=== PATIENT | female | born 1960 | race Two or more races ===

== ENCOUNTER 2021-06-19 15:12 | Outpatient (REF) | payer OTHER, SELFPAY | END 2021-06-19 15:13 | disposition home or self-care (01) | LOC: HO.LAB 15:12 | PROVIDERS: Visit Provider Physician Assistant Medical | DX: R05.9 Cough, unspecified (principal); Z20.822 Contact with and (suspected) exposure to COVID-19 | CPT/HCPCS: U0003; U0005 ==

== ENCOUNTER → 2021-12-19 14:59 | Outpatient (BNVA) | payer OTHER, SELFPAY | PROVIDERS: PCP Nurse Practitioner Family; Visit Provider Surgery Vascular Surgery | DX: Z13.89 Encounter for screening for other disorder (principal) ==

== ENCOUNTER 2022-02-27 12:31 | Outpatient (REF) | payer OTHER, SELFPAY ==
--- NOTE | ~2022-02-27 | XR_ITS ---
EXAMINATION: XR LUMBOSACRAL SPINE CLINICAL INFORMATION: Low back pain. COMPARISON: None TECHNIQUE: Three views of the lumbosacral spine. FINDINGS: There is maintained lumbar lordosis. There is there is mild dextroscoliosis lumbar spine. There is loss of disc height virtually at every disc level with bridging osteophyte on the left at the L4-L5 , L2-L3 and on the right L2-L3 disc levels. No acute fracture or aggressive lytic process seen. Moderate bilateral L5-S1 and left L4-L5 facet joint arthropathy seen. There is mild constipation. XR/XR lumbar spine 2-3V IMPRESSION: Levoscoliosis dorsolumbar junction with degenerative disc changes throughout lumbar spine with spondylosis. No aggressive fracture or lytic process seen. There is bilateral facet joint arthropathy L5-S1 and left L4-L5 disc levels
== END 2022-02-27 12:32 | disposition home or self-care (01) ==
LOC: HO.HMGCX 12:31
PROVIDERS: PCP Nurse Practitioner Family; Visit Provider Nurse Practitioner Family
DX: M54.50 Low back pain, unspecified (principal)
CPT/HCPCS: 72100

== ENCOUNTER 2022-08-07 10:43 | Outpatient (REF) | payer OTHER, SELFPAY ==
[2022-08-07 13:49] LABS: MANUAL DIFF FLAG NO
[2022-08-07 13:59] LABS: Basophils Percent Auto 0.5 % (0-2); Eosinophils Absolute Auto 0.2 X10*3/uL (0.0-0.4); Eosinophils Percent Auto 2.3 % (0-4); Hematocrit 44.2 % (37.0-47.0); Hemoglobin 13.7 g/dl (12.0-16.0); Imm Gran Abs Auto 0.02 X10*3/uL (0.00-0.03); Imm Gran Pct Auto 0.2 % (0.0-0.4); Lymphocytes Absolute Auto 2.6 X10*3/uL (1.2-4.9); Mean Corpuscular Volume 70.9 fL (80.0-98.0); Mean Platelet Volume 11.2 fL (9.4-12.3); Monocytes Absolute Auto 0.8 X10*3/uL (0.1-1.2); Monocytes Percent Auto 9.8 % (2-11); Neutrophils Absolute Auto 4.5 x10*3/uL (2.0-8.3); Neutrophils Percent Auto 55.2 % (45-73); Platelet Count 241 X10*3/uL (160-400); Red Blood Count 6.23 X10*6/uL (4.20-5.50); Red Cell Distribution Width 14.5 % (11.0-16.0); White Blood Count 8.2 X10*3/uL (4.8-10.8)
[2022-08-07 14:00] LABS: Appearance Urine Clear; Color Urine Yellow; Glucose Urine UA >=1000 mg/dL (Negative); Leukocyte Esterase Urine Negative (Negative); Nitrite Urine Negative (Negative); PH 5.5 (5.0-9.0); Specific Gravity - Urine >= 1.030 (1.005-1.025); UMIC TRIGGER UACC YES; Urine Blood Trace (Negative); Urine Ketones Negative (Negative); Urine Protein 100 (2+) mg/dL (Neg-Trace)
[2022-08-07 14:07] LABS: Estimated Average Glucose 289 mg/dL; Hemoglobin A1c % 11.7 %
[2022-08-07 14:17] LABS: Bacteria Urine Trace (None Seen); Hyaline Casts Urine 0-2 /LPF (0-2); RBC Urine 0-2 /HPF (0-2); UACC Culture Trigger YES
[2022-08-07 14:23] LABS: Creatinine Urine 62.06 mg/dL
[2022-08-07 14:30] LABS: Alanine Aminotransferase 16 U/L (0-31); Albumin Level 4.2 g/dL (3.5-5.0); Alkaline Phosphatase 94 U/L (39-117); Anion Gap 11 (12-20); Aspartate Amino Transferase 16 U/L (5-31); Bilirubin Total 0.6 mg/dL (0.0-1.0); Blood Urea Nitrogen 17 mg/dL (9-16); Calcium 9.7 mg/dL (8.4-10.2); Carbon Dioxide 27 mmol/L (22-29); Chloride 102 mmol/L (96-108); Cholesterol 257 mg/dL; Estimated Glomerular Filt Rate 57; Glucose Fasting 303 mg/dL (60-99); HDL Cholesterol 40 mg/dL; Potassium 4.9 mmol/L (3.3-5.1); Sodium 135 mmol/L (135-145); TSH reflex Free T4 0.63 uIU/mL (0.32-4.0); Total Protein 6.9 g/dL (6.5-8.0); Triglycerides 419 mg/dL
[2022-08-07 14:35] LABS: Microalbum/Creatinine Ratio Ur 1324.5 ug/mg cr
== END 2022-08-07 10:44 | disposition home or self-care (01) ==
LOC: HO.HMGCLDS 10:43
PROVIDERS: PCP Nurse Practitioner Family; Visit Provider Nurse Practitioner Family
DX: Z00.00 Encounter for general adult medical examination without abnormal findings (principal); E11.9 Type 2 diabetes mellitus without complications
CPT/HCPCS: 36415; 80053; 80061; 81001; 81003; 82043; 83036; 84443; 85025; 87086

== ENCOUNTER 2022-08-21 09:51 | Outpatient (REF) | payer OTHER, SELFPAY ==
--- NOTE | ~2022-08-21 | MM_ITS ---
EXAMINATION: MM SCREENING DIGITAL BREAST TOMOSYNTHESIS, BILATERAL CLINICAL INFORMATION: Screening. Asymptomatic. The lifetime risk of breast cancer based on the Tyrer-Cuzick Model is 5%. COMPARISON: Outside mammography: 06/29/2019, 05/10/2014 ([facility]) TECHNIQUE: Digital breast tomosynthesis is performed in both the craniocaudal and mediolateral oblique views along with computer-aided detection (CAD). Synthesized 2D images are generated from the tomosynthesis. Additional right MLO view is provided. FINDINGS: There are scattered areas of fibroglandular density (ACR BI-RADS breast composition Category b). There are no significant masses, abnormal calcifications, or other abnormalities. Parenchymal pattern is similar to prior outside studies. No developing density or interval architectural abnormality. The axilla and skin contours are unremarkable. No significant changes. MM/MM tomosynthesis screening BI IMPRESSION: No mammographic evidence of malignancy. ASSESSMENT: BI-RADS 1: Negative RECOMMENDATION: Routine annual mammography screening. This patient's information was entered into a reminder system with a target due date for their next mammogram.
== END 2022-08-21 09:52 | disposition home or self-care (01) ==
LOC: HO.MAMMO 09:51
PROVIDERS: PCP Nurse Practitioner Family; Visit Provider Nurse Practitioner Family
DX: Z12.31 Encounter for screening mammogram for malignant neoplasm of breast (principal)
CPT/HCPCS: 77063; 77067

== ENCOUNTER → 2023-01-07 13:49 | Outpatient (BNVA) | payer OTHER, SELFPAY | PROVIDERS: PCP Nurse Practitioner Family; Visit Provider Anesthesiology | DX: Z13.89 Encounter for screening for other disorder (principal) ==

== ENCOUNTER 2023-06-26 09:53 | Outpatient (REF) | payer OTHER, SELFPAY ==
--- NOTE | ~2023-06-26 | XR_ITS ---
EXAMINATION: XR KNEE, LEFT CLINICAL INFORMATION: Type 2 diabetes mellitus, left knee pain COMPARISON: None available. TECHNIQUE: Four views of the left knee. FINDINGS: BONES: Bony structures are intact. Osteophytes are seen in left medial femoral condyle and medial tibial plateau, distal left femoral articular trochlea, left patellar medial articular border. There is no focal bone destruction or periosteal reaction seen. JOINTS: Alignment of joints is normal. There is complete loss of medial compartment left tibiofemoral joint space. SOFT TISSUE: Soft tissue is normal. No radiopaque foreign body or abnormal air collection is seen. Metallic vascular stent is seen in distal left femoral region. XR/XR knee LT 3V IMPRESSION: 1. Advanced medial compartment left tibiofemoral joint and moderate left patellofemoral joint osteoarthritis are present. 2. No fracture or dislocation or signs of osteomyelitis are found. Some fractures could be difficult to visualize on plain x-rays, especially in the osteopenic and relatively old patients. If there are significant clinical suspicion or symptoms of fracture, further evaluation with CT or MRI scan should be considered.
--- NOTE | ~2023-06-26 | XR_ITS ---
EXAMINATION: XR KNEE, RIGHT CLINICAL INFORMATION: Type 2 diabetes mellitus, complains of right knee pain COMPARISON: None available. TECHNIQUE: 3 view of the right knee. FINDINGS: BONES: Bony structures are intact. There is no focal bone destruction or periosteal reaction seen. JOINTS: Alignment of joints is normal. There is complete loss of medial compartment right tibiofemoral joint space. SOFT TISSUE: Soft tissue is normal. No radiopaque foreign body or abnormal air collection is seen. XR/XR knee RT 3V IMPRESSION: 1. Advanced medial compartment right tibiofemoral joint osteoarthritis is present. 2. No fracture or dislocation or signs of osteomyelitis are found. Some fractures could be difficult to visualize on plain x-rays, especially in the osteopenic and relatively old patients. If there are significant clinical suspicion or symptoms of fracture, further evaluation with CT or MRI scan should be considered.
== END 2023-06-26 09:54 | disposition home or self-care (01) ==
LOC: HO.XRAY 09:53
PROVIDERS: PCP Nurse Practitioner Family; Visit Provider Anesthesiology
DX: E11.618 Type 2 diabetes mellitus with other diabetic arthropathy (principal)
CPT/HCPCS: 73562

== ENCOUNTER 2023-07-24 10:46 | Outpatient (REF) | payer OTHER, SELFPAY ==
[2023-07-24 13:44] LABS: MANUAL DIFF FLAG NO
[2023-07-24 13:51] LABS: Basophils Absolute Auto 0.1 X10*3/uL (0.0-0.2); Basophils Percent Auto 0.6 % (0-2); Eosinophils Absolute Auto 0.2 X10*3/uL (0.0-0.4); Eosinophils Percent Auto 2.2 % (0-4); Hematocrit 44.1 % (37.0-47.0); Hemoglobin 13.5 g/dl (12.0-16.0); Imm Gran Abs Auto 0.02 X10*3/uL (0.00-0.03); Imm Gran Pct Auto 0.2 % (0.0-0.4); Lymphocytes Absolute Auto 2.9 X10*3/uL (1.2-4.9); Mean Corpuscular HGB Conc 30.6 g/dl (31.0-35.0); Mean Corpuscular Hemoglobin 22.3 pg (27.0-33.0); Mean Corpuscular Volume 72.8 fL (80.0-98.0); Monocytes Absolute Auto 0.8 X10*3/uL (0.1-1.2); Monocytes Percent Auto 9.9 % (2-11); Neutrophils Absolute Auto 4.2 x10*3/uL (2.0-8.3); Neutrophils Percent Auto 51.1 % (45-73); Platelet Count 286 X10*3/uL (160-400); Red Blood Count 6.06 X10*6/uL (4.20-5.50); Red Cell Distribution Width 14.1 % (11.0-16.0); White Blood Count 8.2 X10*3/uL (4.8-10.8)
[2023-07-24 14:14] LABS: Estimated Average Glucose 292 mg/dL; Hemoglobin A1c % 11.8 % (<6.0)
[2023-07-24 14:23] LABS: Alanine Aminotransferase 16 U/L (0-31); Albumin Level 3.6 g/dL (3.5-5.0); Alkaline Phosphatase 79 U/L (39-117); Anion Gap 11 (12-20); Aspartate Amino Transferase 15 U/L (5-31); Bilirubin Total 0.4 mg/dL (0.0-1.0); Blood Urea Nitrogen 17 mg/dL (9-16); Calcium 9.2 mg/dL (8.4-10.2); Carbon Dioxide 27 mmol/L (22-29); Chloride 107 mmol/L (96-108); Cholesterol 258 mg/dL (<200); Estimated Glomerular Filt Rate > 60; Glucose Fasting 114 mg/dL (60-99); HDL Cholesterol 46 mg/dL (>40); Potassium 4.7 mmol/L (3.3-5.1); Sodium 140 mmol/L (135-145); TSH reflex Free T4 0.84 uIU/mL (0.32-4.0); Total Protein 6.6 g/dL (6.5-8.0); Triglycerides 429 mg/dL (<150); Vitamin D 25-OH Total 21.4 ng/mL (>30)
== END 2023-07-24 10:47 | disposition home or self-care (01) ==
LOC: HO.HMGCLDS 10:46
PROVIDERS: PCP Nurse Practitioner Family; Visit Provider Nurse Practitioner Family
DX: E11.9 Type 2 diabetes mellitus without complications (principal); E55.9 Vitamin D deficiency, unspecified
CPT/HCPCS: 36415; 80053; 80061; 82306; 83036; 84443; 85025

== ENCOUNTER 2023-08-07 11:39 | Outpatient (AMB) | payer OTHER, SELFPAY ==
--- NOTE | 2023-08-07 11:46 | MHC.OFFVIS ---
Intake Vital Signs 08/07/23 11:53 Height 5 ft 5 in Weight 190 lb BMI 31.6 BP 193/79 H Blood Pressure Location Lt brachial Position Sitting Intake Visit Reasons: re discuss colonoscopy screening Intake Note: Patient follow up for discuss colonoscopy screening. Patient denies any GI issues. Check Examiner Required: No Accompanied by: Daughter Allergies erythromycin base [Erythromycin Base] Allergy (Mild, Verified 08/07/23 11:45) DIFFICULTY BREATHING albuterol Allergy (Unknown, Verified 08/07/23 11:45) Facial flushing meperidine [Demerol] Allergy (Unknown, Verified 08/07/23 11:45) vomiting metoclopramide [Reglan] Allergy (Unknown, Verified 08/07/23 11:45) unsure Erythromycin Allergy (Unknown, Uncoded 05/28/22 18:03) ? if allergy - family allergic to med, Pt stays away from it HPI re discuss colonoscopy screening HPI Details LAST VISIT AUGUST OF 2022 Screening for colon cancer Patient denies any GI symptoms except for occasional acid reflux. Patient reports that Tums helps which does symptoms. Occasional constipation, patient uses [id number] laxative if needed. Patient reports that she was told by her PCP that she has Congestive heart failure, however has never seen operators teacher in the past. Symptoms of shortness of breath with minimal exertion. Patient does have risk factors for CAD that include?smoking, diabetes, hypertension, hyperlipidemia. Patient denies any chest pain, PND. Will send patient to see cardiology for risk stratification before going on for the procedure. Denies any issues with anesthesia in the past.? Denies any history of sleep apnea.? No history infectious diseases in the past or present.? Not on any anticoagulation therapy.? No family or personal history of colon cancer or polyps.? Patient denies melena, hematochezia, unintentional weight loss or ribbon like stools.? Discussed at length the pre-procedure,? prep, diet & medications as well as what to expect prior, during and after the procedure.?? Stressed the importance of good bowel prep. ?Recommended the use of Vaseline or Calmoseptine OTC & baby wipes with bowel movements to promote comfort.? ?Patient verbalizes understanding and agrees to plan of care.? She was given the opportunity to ask questions and all questions answered.? We will see her after the procedure.? Plan Orders Referrals Cardiology Referral Z01.810 Medications New bisacodyl (Dulcolax (bisacodyl)) take 2 tabs at noon the day before your colonoscopy 10 mg (2 x 5 mg) PO ONCE 2 tabs 0RF 1 day Z12.11 polyethylene glycol 3350 (Miralax) As directed by gastroenterology department at [facility] 238 grams PO ONCE 238 grams 0RF Z12.11 TODAY'S VISIT: Patient is here today to discuss going for colonoscopy. Patient is accompanied by her daughter. Patient never had appointment with Cardiology to be cleared for the procedure. Patient states that somebody called and canceled told her that she does not need to see a operators teacher. Patient reports to have shortness of breath with minimal exertions. She is a smoker. History of Congestive heart failure in the past. Reports bilateral lower extremity edema. No recent echocardiogram. Patient had echo and nuclear perfusion scan in 2007. Echo showed 60-65% of EF. Nuclear perfusion scan showed decreased left ventricle perfusion then. Given her history and symptoms patient should have cardiac risk stratification. [facility] Medical History PAD (peripheral artery disease) Social History Housing: House Patient Tobacco Use Status: Former Tobacco user Quit Date: 11/2021 e-Cigarette/Vaping Use: Never Used Second Hand Smoke Exposure: No service: No Current occupational status: employed Current occupation: [employer] Current occupational exposures/hazards: No Cognitive needs: No Hearing needs: No Vision needs: No Review of Systems Const Denies weight gain and Denies weight loss ENT Reports no additional complaints, Denies dysphagia and Denies odynophagia Card Reports no additional complaints, Reports leg edema and Reports dyspnea on exertion Resp Reports no additional complaints and Reports dyspnea on exertion GI Denies abdominal pain, Denies belching, Denies melena, Denies bloating, Denies change in bowel habits, Denies dysphagia, Denies excessive flatus, Denies dyspepsia, Denies heartburn, Denies diarrhea, Denies loose stools, Denies nausea, Denies odynophagia and Denies vomiting Musc Reports no additional complaints Neuro Reports no additional complaints Psych Reports no additional complaints Endo Reports no additional complaints Physical Exam Vital Signs: Last Vital Signs BP 193/79 H 08/07/23 11:53 BMI result Body Mass Index 31.6 Const Other: Ambulating with walker General: no acute distress Nutritional Appearance: well nourished and obese Orientation/consciousness: patient oriented x3 HEENT Head: Yes normal to inspection, Yes normocephalic and Yes atraumatic Face and sinus: Yes normal facial exam Mouth: Normal oral and palatal mucosa present Throat: Yes posterior oropharynx normal, Yes tonsils normal and Yes uvula midline Eyes General: appearance normal, both eyes and all related structures Neck Neck: Yes normal visual inspection, Yes full ROM and Yes trachea midline Thyroid: Thyroid normal Resp Effort & Inspection: normal respiratory effort, able to speak in complete sentences, no tracheal deviation and symmetric chest movement Auscultation: clear to auscultation bilaterally Cardio Rate: regular rate Heart sounds: S1 normal heart sound present and S2 normal heart sound present GI Inspection: Yes normal to inspection, No distended and Yes obesity Palpation (GI): Soft to palpation, not firm, nontender and No hepatosplenomegaly present Auscultation: normal bowel sounds General: Yes no CVA tenderness Back/Spine/Pelvis Back: no CVA tenderness Skin General skin exam: elasticity normal, turgor normal and dry skin Neuro General: patient oriented x3 Psych Appearance: grossly normal Mental Status: mental status grossly normal Assessment & Plan Assessment & Plan (1) Screening for colon cancer: Code(s): Z12.11 - Encounter for screening for malignant neoplasm of colon (2) Peripheral vascular disease: Code(s): I73.9 - Peripheral vascular disease, unspecified (3) SOBOE (shortness of breath on exertion): Code(s): R06.02 - Shortness of breath Plan What to expect be what to expect before during and after the procedure discussed with patient. Went over the prep with her again. Patient's daughter is present. The importance of her getting evaluated by Cardiology before that procedure was stressed. Patient does have comorbidities like diabetes, smoking, PVD, shortness of breath with exertion, bilateral lower extremity edema, suboptimal stress test in 2008. Decreased perfusion at rest and after exercise of her left ventricle in 2008. Patient will need risk stratification. Denies any issues with anesthesia in the past. No history of sleep apnea. Patient is on low dose aspirin. Adjust patient's insulin does 1 day or in 2 days before the procedure as she will be on clear liquid diet day before the procedure. Patient may take half of the recommended does both evenings and make sure that she checks her blood sugars when she is doing her prep day before the procedure. I will see her after the procedure, sooner on as needed basis. Patient is agreeable to this plan and verbalizes understanding of instructions. She was given the opportunity to ask questions and all questions answered. Thank you for allowing me to participate in her care Medications: New bisacodyl (Dulcolax (bisacodyl)) take 4 tabs at noon the day before your colonoscopy 20 mg (4 x 5 mg) PO ONCE 1 day 4 tabs 0RF Z12.11 - Encounter for screening for malignant neoplasm of colon polyethylene glycol 3350 (Miralax) As directed by gastroenterology department at [facility] 238 grams PO ONCE 238 grams 0RF Z12.11 - Encounter for screening for malignant neoplasm of colon Coding Level of Care Code Est Pt Level 3 (05916) Diagnoses Screening for colon cancer Z12.11 Peripheral vascular disease I73.9 SOBOE (shortness of breath on exertion) R06.02 Time Spent (min) 35 Comment 20 minutes spent with patient and additional 15 minutes spent reviewing her records
[2023-08-07 11:53] VITALS: BP 193/79; BMI 31.6
== END 2023-08-07 13:12 | disposition home or self-care (01) ==
PROVIDERS: PCP Nurse Practitioner Family; Visit Provider Nurse Practitioner Family
DX: Z12.11 Encounter for screening for malignant neoplasm of colon (principal); I73.9 Peripheral vascular disease, unspecified; R06.02 Shortness of breath; Z01.818 Encounter for other preprocedural examination
CPT/HCPCS: 99213

== ENCOUNTER → 2023-08-07 11:39 | Outpatient (BNVA) | payer OTHER, SELFPAY | PROVIDERS: PCP Nurse Practitioner Family; Visit Provider Nurse Practitioner Family ==

== ENCOUNTER 2023-09-30 11:59 | Outpatient (AMB) | payer OTHER, SELFPAY ==
[2023-09-30 13:14] VITALS: BP 130/64; PULSE 76; BMI 31.5
--- NOTE | 2023-09-30 13:14 | A.OFFVIS_ITS ---
Intake Vital Signs 09/30/23 13:14 Height 5 ft 5 in Weight 189 lb 9.561 oz BMI 31.5 BP 130/64 Blood Pressure Location Lt brachial Position Sitting Pulse 76 Intake Visit Reasons: pre-op GI dx chf Intake Note: pre-op GI dx chf/ pt it not feeling well but have not symptoms. Senior Medical Technologist Required: No Accompanied by: Self / Same As Patient Allergies erythromycin base [Erythromycin Base] Allergy (Mild, Verified 10/01/23 10:52) DIFFICULTY BREATHING albuterol Allergy (Unknown, Verified 10/01/23 10:52) Facial flushing meperidine [Demerol] Allergy (Unknown, Verified 10/01/23 10:52) vomiting metoclopramide [Reglan] Allergy (Unknown, Verified 10/01/23 10:52) unsure Erythromycin Allergy (Unknown, Uncoded 09/30/23 13:44) ? if allergy - family allergic to med, Pt stays away from it Medication List - Last Reconciled 09/30/23 by Trista Cuevas, DIGITAL PRINTER OPERATOR amlodipine 10 mg PO DAILY 90 days aspirin 1 tab PO DAILY bisacodyl (Dulcolax (bisacodyl)) 20 mg (4 x 5 mg) PO ONCE 1 day blood sugar diagnostic (FreeStyle Lite Strips) test blood sugar 3 times per day blood-glucose meter (FreeStyle Lite Meter kit) As directed cholecalciferol (vitamin D3) 125 mcg PO DAILY clonidine HCl 0.1 mg PO BEDTIME 30 days FreeStyle Sarah 2 [place] (flash glucose scanning reader) tid testing NS FreeStyle Sarah 2 Sensor (flash glucose sensor) tid testing NS insulin glargine (Lantus Solostar U-100 Insulin) 80 units (0.8 mL) subcut DAILY lancets (FreeStyle Lancets) test 3 times per day nystatin 1 appl topical BID omega-3 acid ethyl esters 1 cap PO BID 90 days pen needle, diabetic (BD Ultra-Fine Rimma Pen Needle) daily use diabetes polyethylene glycol 3350 (Miralax) 238 grams PO ONCE rosuvastatin 40 mg PO DAILY 90 days HPI HPI Comments History of Present Illness Details 62-year-old female presents today for a new patient visit for pre- operative clearance for a colonoscopy at the end of November. She reports that she has been told in the past that she has CHF and had a stroke but she has no recollection of it happening. She seen a radio sportscaster many years ago and she does not recall the name. She states she has not been taking her medications as she should due to episodes of depression and this week she got back on track. Other significant medical history of diabetes, hyperlipidemia, peripheral vascular disease. She is hard to get a full medical history on as she doesn't fully recall. [facility] Medical History CHF (congestive heart failure) Stroke PAD (peripheral artery disease) Family History Mother Diabetes Father Lung cancer Social History Housing: House Patient Tobacco Use Status: Former Tobacco user Quit Date: 11/2021 e-Cigarette/Vaping Use: Never Used Second Hand Smoke Exposure: No service: No Current occupational status: employed Current occupation: [employer] Current occupational exposures/hazards: No Cognitive needs: No Hearing needs: No Vision needs: No Review of Systems Const Denies chills, Denies daytime sleepiness, Denies fatigue, Denies fever(s), Denies frequent falls, Denies poor appetite, Denies snoring, Denies stops breathing during sleep, Denies weakness, Denies weight gain and Denies weight loss Eyes Denies loss of vision ENT Denies dizziness and Denies hearing loss Card Denies chest pain, Denies claudication, Denies leg edema, Denies lightheadedness, Denies palpitations, Denies dyspnea, Denies dyspnea on exertion, Denies orthopnea and Denies other (LOC) Resp Denies cough, Denies excessive phlegm production, Denies dyspnea, Denies dyspnea on exertion, Denies snoring and Denies wheezing GI Denies abdominal pain, Denies hematochezia, Denies change in bowel habits, Denies nausea and Denies vomiting Denies dysuria and Denies urinary urgency Musc Denies arthralgias, Denies muscle weakness and Denies numbness Skin/Breast Denies nail changes and Denies rash Neuro Denies Abnormal speech present, Denies dizziness, Denies frequent falls, Denies loss of vision, Denies memory loss, Denies numbness and Denies weakness Psych Denies depression and Denies memory loss Endo Denies fatigue and Denies palpitations Tre/Lymph Denies easy bruising and Denies other (Anemia) Aller/Immun Denies wheezing Physical Exam Vital Signs: Last Vital Signs Pulse 76 09/30/23 13:14 BP 130/64 09/30/23 13:14 BMI result Body Mass Index 31.5 Const General: healthy appearing and no acute distress Orientation/consciousness: patient oriented x3 HEENT Head: Yes normal to inspection Eyes General: appearance normal, both eyes and all related structures Neck Neck: Yes normal visual inspection Chest Chest palpation & inspection: normal inspection of the chest Resp Effort & Inspection: normal respiratory effort Auscultation: clear to auscultation bilaterally Cardio Jugular venous distension: no JVD Palpation: normal PMI Rate: regular rate Rhythm: regular rhythm Heart sounds: S1 normal heart sound present, S2 normal heart sound present, no c lick, no gallops, no murmurs and no rubs GI Inspection: Yes normal to inspection Palpation (GI): Soft to palpation Skin General skin exam: no rashes or lesions noted Neuro General: patient oriented x3 Speech: No Abnormal speech present Extrem General: Yes normal to inspection Psych Appearance: grossly normal Office Procedures EKG Details: KG today. Normal Sinus Rhythm with Right Bundle Branch Block. Rate 76 bpm. QRS 138 ms. QTc 483ms. [id number], Complete Assessment & Plan Assessment & Plan (1) Pre-op evaluation: Code(s): Z01.818 - Encounter for other preprocedural examination (2) Diabetes: Code(s): E11.9 - Type 2 diabetes mellitus without complications (3) Hypertension: Code(s): I10 - Essential (primary) hypertension (4) CHF (congestive heart failure): Code(s): I50.9 - Heart failure, unspecified (5) Palpitations: Code(s): R00.2 - Palpitations (6) Hyperlipidemia: Code(s): E78.5 - Hyperlipidemia, unspecified (7) Right bundle branch block: Code(s): I45.10 - Unspecified right bundle-branch block Plan Will obtain labs today. Lipid panel in two months after being back on her medications longer. Echocardiogram to obtain baseline and pharmacological stress test to assess for ischemia. Once testing is complete can decide on pre- opertative clearance. Will meet with me again after testing and then after Dr. Luna if needed. Discussed in detail about heart healthy diet, exercise as tolerated, if sustained palpitations or if chest discomfort occurs seek emergency care. Avoid salt and processed foods and weigh self daily. Compliance with medical treatments stressed. Complete smoking cessation recommended. No prior EKGs and patient is unsure if she had a RBBB in the past. Orders: Orders CA echo transthoracic complete 09/30/23 I10 - Essential (primary) hypertension, I45.10 - Unspecified right bundle-branch block, I50.9 - Heart failure, unspecified CA lexiscan stress w kirstin 09/30/23 E11.9 - Type 2 diabetes mellitus without complications, I10 - Essential (primary) hypertension, I45.10 - Unspecified right bundle-branch block, I50.9 - Heart failure, unspecified, R00.2 - Palpitations, Z01.818 - Encounter for other preprocedural examination B Type Natriuretic Peptide 09/30/23 I50.9 - Heart failure, unspecified Lipid Panel 2 Months E78.00 - Pure hypercholesterolemia, unspecified Basic Metabolic Panel 09/30/23 E78.00 - Pure hypercholesterolemia, unspecified, I10 - Essential (primary) hypertension, I50.9 - Heart failure, unspecified Coding Level of Care Code New Pt Level 4 (75892) Diagnoses Pre-op evaluation Z01.818 Diabetes E11.9 Hypertension I10 CHF (congestive heart failure) I50.9 Palpitations R00.2 Hyperlipidemia E78.5 Right bundle branch block I45.10 CPT Codes EKG - CPT: 02010-[id number], Complete ([id number])
== END 2023-09-30 14:17 | disposition home or self-care (01) ==
PROVIDERS: PCP Nurse Practitioner Family; Visit Provider Nurse Practitioner
DX: Z01.818 Encounter for other preprocedural examination (principal); E11.9 Type 2 diabetes mellitus without complications; I10 Essential (primary) hypertension; I50.9 Heart failure, unspecified; R00.2 Palpitations; E78.5 Hyperlipidemia, unspecified; I45.10 Unspecified right bundle-branch block
CPT/HCPCS: 93010; 99204

== ENCOUNTER → 2023-09-30 11:59 | Outpatient (BNVA) | payer OTHER, SELFPAY | PROVIDERS: PCP Nurse Practitioner Family; Visit Provider Nurse Practitioner | DX: Z01.818 Encounter for other preprocedural examination (principal); E11.9 Type 2 diabetes mellitus without complications; I11.0 Hypertensive heart disease with heart failure; I50.9 Heart failure, unspecified; R00.2 Palpitations; E78.5 Hyperlipidemia, unspecified; I45.10 Unspecified right bundle-branch block | CPT/HCPCS: 93005 ==

== ENCOUNTER 2023-10-01 10:45 | Outpatient (AMB) | payer OTHER, SELFPAY ==
--- NOTE | 2023-10-01 10:46 | MHC.OFFVIS ---
Intake Vital Signs 10/01/23 10:52 Height 5 ft 5 in Weight 189 lb BMI 31.4 BP 140/80 H Blood Pressure Location Lt brachial Position Sitting Respiration 16 Pulse 88 Pulse Source Pulse Oximeter Pulse Oximetry (%) 99 Oxygen Delivery Method Room Air Intake Visit Reasons: Follow Up/X-Ray Results Intake Note: Patient comes in for follow up appointment. Reports pain 05/17. Allergies erythromycin base [Erythromycin Base] Allergy (Mild, Verified 10/01/23 10:52) DIFFICULTY BREATHING albuterol Allergy (Unknown, Verified 10/01/23 10:52) Facial flushing meperidine [Demerol] Allergy (Unknown, Verified 10/01/23 10:52) vomiting metoclopramide [Reglan] Allergy (Unknown, Verified 10/01/23 10:52) unsure Erythromycin Allergy (Unknown, Uncoded 09/30/23 13:44) ? if allergy - family allergic to med, Pt stays away from it HPI HPI Comments History of Present Illness Details Caitlyn is back in my office after significant period of absence. She have seen me in January of 2023, she was sent for the x-rays of the bilateral knees which she presents with complain on severe pain in. She was sent for the x-ray of bilateral knees and only left knee demonstrated significant arthritis. The right knee is intact. Nevertheless she reports grinding sensation in severe pain in both knees. She might be willing to seek the orthopedic surgery consult about her right knee and possibility to do the MRI of the right knee. For the left knee with significant arthritis I offered her diagnostic genicular nerve block, if genicular nerve block will help her pain will discuss possibility of treating her with radiofrequency ablation versus neuromodulation on the left knee. Prior: complains on pain all over the body related to ?fibromyalgia as well as arthritis ?. She reports most severe pain in bilateral knees and bilateral feet as well as pain in lower back. She also reports that she has suffered from scoliosis in the past. She is poorly-controlled diabetic patient. She reports significant past medical history including very poorly controlled diabetes. She has congestive heart failure. She was once told that she has a stroke but she denies neurological deficits. She has heart palpitations shortness of breath and congestive heart failure the severity of congestive heart failure is unknown. She is recommended to take NSAIDs for her pain however she reports no help with her pain. She in the past received cortisone injections in her knees and she was not able to walk on that injected knee for 3 days. She refused to do contralateral knee injection. She had no physical therapy but she tried chiropractic manipulations many years ago to treat her pain and she reports very significant pain aggravation with care for her off and she does not want to go to chiropractor. She never tried 10s unit acupuncture or occupational therapy. She never tried I aerobic exercises. Past surgical history significant for 2 stents in the legs gallbladder surgery and tubal ligation many years ago. She admits smoking cigarettes 1 pack per day she denies drinking alcohol she drinks caffeinated beverages and she denies recreational drugs [facility] Medical History CHF (congestive heart failure) Stroke PAD (peripheral artery disease) Family History Mother Diabetes Father Lung cancer Social History Housing: House Patient Tobacco Use Status: Former Tobacco user Quit Date: 11/2021 e-Cigarette/Vaping Use: Never Used Second Hand Smoke Exposure: No service: No Current occupational status: employed Current occupation: [employer] Current occupational exposures/hazards: No Cognitive needs: No Hearing needs: No Vision needs: No Review of Systems Const All systems reviewed & are unremarkable except as noted in HPI and below ENT Reports Normal hearing present Neuro Reports Normal hearing present, Denies Abnormal speech present and Denies Sensory deficit (Neuro) Physical Exam Const General: no acute distress Orientation/consciousness: patient oriented x3 Eyes General: appearance normal, both eyes and all related structures Pupils: Equal, round and reactive pupils present EOM: EOMs intact bilaterally Neck Neck: Yes full ROM Chest Chest palpation & inspection: normal inspection of the chest Resp Effort & Inspection: normal respiratory effort, able to speak in complete sentences, normal respiratory pattern, no audible wheezes and no cough Cardio Jugular venous distension: no JVD GI Inspection: Yes normal to inspection Neuro General: patient oriented x3 and gait normal Cranial nerves: Yes CN's II-XII intact bilaterally, Yes Equal, round and reactive pupils present, Yes Normal hearing present and Yes Ability to bilaterally elevate shoulders present Speech: No Abnormal speech present Gait exam (Neuro): Normal gait present Motor exam (neuro): 5/5 motor strength present throughout Sensory Exam: No Sensory deficit (Neuro) Extrem Other: No crackling on palpation of bilateral knees with movements. General: No pedal edema Psych Speech and movement: Normal speech and movement present Affect: normal affect Attitude: cooperative Thought process: Normal thought process present Thought content: Normal thought content present Insight: Good insight present (Psych) Judgement: Good judgement present (Psych) Assessment & Plan Assessment & Plan (1) Peripheral vascular disease: Code(s): I73.9 - Peripheral vascular disease, unspecified (2) Diabetes: Code(s): E11.9 - Type 2 diabetes mellitus without complications (3) Diabetic neuropathy: Code(s): E11.40 - Type 2 diabetes mellitus with diabetic neuropathy, unspecified (4) Diabetic arthropathy: Code(s): E11.618 - Type 2 diabetes mellitus with other diabetic arthropathy (5) Left knee pain: Code(s): M25.562 - Pain in left knee (6) Osteoarthritis of left knee: Code(s): M17.12 - Unilateral primary osteoarthritis, left knee (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 I will schedule this patient for this procedure without sedation. If there are any positive outcomes of this procedure we will discuss radiofrequency ablation versus neuromodulation of the left knee. As of the right knee problem she probably needs to see orthopedic surgeon and maybe have MRI of the right knee because x-ray did not demonstrate any bony pathology in the knee. We will discuss all of this next time after the diagnostic genicular nerve block. 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 The medial branch block will be technically very difficult for this patient however with her understanding that it possibly will be difficult procedure I can nevertheless try to perform it. Next appointment will be scheduled after the genicular nerve block.. Coding Level of Care Code Est Pt Level 3 (09905) Diagnoses Peripheral vascular disease I73.9 Diabetes E11.9 Diabetic neuropathy E11.40 Diabetic arthropathy E11.618 Left knee pain M25.562 Osteoarthritis of left knee M17.12 Spondylosis of lumbar region without myelopathy or radiculopathy M47.810
[2023-10-01 10:52] VITALS: BP 140/80; PULSE 88; RESP 16; O2SAT 99; BMI 31.4
== END 2023-10-01 11:35 | disposition home or self-care (01) ==
PROVIDERS: PCP Nurse Practitioner Family; Visit Provider Anesthesiology
DX: I73.9 Peripheral vascular disease, unspecified (principal); E11.40 Type 2 diabetes mellitus with diabetic neuropathy, unspecified; E11.618 Type 2 diabetes mellitus with other diabetic arthropathy; M25.562 Pain in left knee; M17.12 Unilateral primary osteoarthritis, left knee; M47.816 Spondylosis without myelopathy or radiculopathy, lumbar region
CPT/HCPCS: 99213

== ENCOUNTER → 2023-10-01 10:45 | Outpatient (BNVA) | payer OTHER, SELFPAY | PROVIDERS: PCP Nurse Practitioner Family; Visit Provider Anesthesiology ==

== ENCOUNTER 2023-10-07 13:15 | Outpatient (AMB) | payer OTHER, SELFPAY ==
[2023-10-07 13:45] VITALS: BP 148/82; PULSE 68; O2SAT 97; BMI 31.5
--- NOTE | 2023-10-07 13:45 | A.OFFPC_ITS ---
Vital Signs 10/07/23 13:45 Height 5 ft 5 in Weight 189 lb 4 oz BMI 31.5 BP 148/82 H Blood Pressure Location Lt brachial Position Sitting Pulse 68 Pulse Source Pulse Oximeter Pulse Oximetry (%) 97 Oxygen Delivery Method Room Air Intake Visit Reasons: Due for f/u Intake Note: Pt is here to follow up for her DM Allergies erythromycin base [Erythromycin Base] Allergy (Mild, Verified 10/07/23 13:48) DIFFICULTY BREATHING albuterol Allergy (Unknown, Verified 10/07/23 13:48) Facial flushing meperidine [Demerol] Allergy (Unknown, Verified 10/07/23 13:48) vomiting metoclopramide [Reglan] Allergy (Unknown, Verified 10/07/23 13:48) unsure Erythromycin Allergy (Unknown, Uncoded 10/07/23 13:48) ? if allergy - family allergic to med, Pt stays away from it Medication List - Last Reconciled 10/07/23 by KAMAR Zarate- amlodipine 10 mg PO DAILY 90 days aspirin 1 tab PO DAILY bisacodyl (Dulcolax (bisacodyl)) 20 mg (4 x 5 mg) PO ONCE 1 day blood sugar diagnostic (FreeStyle Lite Strips) test blood sugar 3 times per day blood-glucose meter (FreeStyle Lite Meter kit) As directed cholecalciferol (vitamin D3) 125 mcg PO DAILY clonidine HCl 0.1 mg PO BEDTIME 30 days ezetimibe 10 mg PO DAILY FreeStyle Sarah 2 Ferguson (flash glucose scanning reader) tid testing NS FreeStyle Sarah 2 Sensor (flash glucose sensor) tid testing NS insulin glargine (Lantus Solostar U-100 Insulin) 80 units (0.8 mL) subcut DAILY lancets (FreeStyle Lancets) test 3 times per day nystatin 1 appl topical BID omega-3 acid ethyl esters 1 cap PO BID 90 days pen needle, diabetic (BD Ultra-Fine Rimma Pen Needle) daily use diabetes polyethylene glycol 3350 (Miralax) 238 grams PO ONCE rosuvastatin 40 mg PO DAILY 90 days Tobacco use date assessed: 10/07/23 Fall risk assessment: 2 + Falls in past year Last assessed Fall Risk: 10/07/23 Dental Screening Dental Screen Date: 10/07/23 Did you have a dental visit in the last 12 months?: No Did you have a dental problem in the last 6 months where you did not have access to dental care?: No Was dental information given to patient?: Patient has dentist HPI Due for f/u HPI Details Pt is an uncontrolled diabetic, on a statin. Last A1C was 11.8. Due for microalbumin. Denies polyuria, polydipsia, does report neuropathy. Pt denies any signs and symptoms of hypoglycemia and does know how to correct it. Pt reports being off her insulin and other meds for months, though she is now back on them. Will continue current meds. Eye exam is scheduled. Pt is following up with cardiology. Dyslipidemia: Pt is currently taking rosuvastatin 40mg. Will start zetia 10mg. Will also start losartan 25mg. [facility], [facility] Medical History CHF (congestive heart failure) Stroke PAD (peripheral artery disease) Family History Mother Diabetes Father Lung cancer Social History Housing: House Patient Tobacco Use Status: Current everyday Tobacco user Cigarette Packs Per Day: 1 e-Cigarette/Vaping Use: Never Used Second Hand Smoke Exposure: No service: No Current occupational status: employed Current occupation: [employer] Current occupational exposures/hazards: No Cognitive needs: No Hearing needs: No Vision needs: No Questionnaire Thrive Questionnaire Date Thrive assessed: 02/27/22 AUDIT C Alcohol Use Questionnaire (AUDIT-C) 1. How often do you have a drink containing alcohol?: Never Total Score: 0 JENNA-7 AMB Questionnaire JENNA-7 Date JENNA - 7 assessed: 02/27/22 Source: Developed by Drs. Abdoulaye Wu, Tracey Santos, Tee Baker and colleagues, with an educational mamadou from [employer]. Review of Systems Const Reports as per HPI Physical exam (Primary Care) Vital Signs: Last Vital Signs Pulse 68 10/07/23 13:45 BP 148/82 H 10/07/23 13:45 Pulse Ox 97 10/07/23 13:45 Oxygen Delivery Method Room Air 10/07/23 13:45 BMI result Body Mass Index 31.5 Tobacco/Smoking Status: Tobacco use Status Tobacco use date assessed 10/07/23 10/07/23 13:52 Patient Tobacco Use Status Current everyday Tobacco 10/07/23 13:52 e-Cigarette/Vaping Use Never Used 10/07/23 13:45 Thrive Assessment: Date of Thrive Assessment Date Thrive assessed 02/27/22 10/07/23 13:45 Const Other: uses rolling walker General: cooperative Nutritional Appearance: obese Orientation/consciousness: patient oriented x3 Resp Effort & Inspection: normal respiratory effort Auscultation: clear to auscultation bilaterally and diminished lung sounds Cardio Rate: regular rate Rhythm: regular rhythm Heart sounds: S1 normal heart sound present and S2 normal heart sound present Neuro General: patient oriented x3 Extrem Other: bilat feet: + sensation with use of monofilament Psych Appearance: grossly normal Mental Status: mental status grossly normal Speech and movement: Normal speech and movement present Affect: normal affect Attitude: cooperative Thought process: Normal thought process present Thought content: Normal thought content present Insight: Good insight present (Psych) Judgement: Good judgement present (Psych) Assessment and Plan Assessment & Plan (1) Diabetes: Code(s): E11.9 - Type 2 diabetes mellitus without complications Plan: added losartan Orders: Orders UA CC w/rflx Micro + Cult Today E11.9 - Type 2 diabetes mellitus without complications Microalbumin, Random (w Creat) Today E11.9 - Type 2 diabetes mellitus without complications Medications: New ezetimibe 10 mg PO DAILY 90 tabs 0RF losartan 25 mg PO DAILY 90 tabs 0RF Coding Level of Care Code Est Pt Level 3 (78179) Diagnoses Diabetes E11.9
== END 2023-10-07 15:25 | disposition home or self-care (01) ==
PROVIDERS: PCP Nurse Practitioner Family; Visit Provider Nurse Practitioner Family
DX: E11.9 Type 2 diabetes mellitus without complications (principal)
CPT/HCPCS: 99213

== ENCOUNTER 2023-10-07 14:22 | Outpatient (REF) | payer OTHER, SELFPAY ==
[2023-10-07 16:17] LABS: Appearance Urine Clear; Color Urine Yellow; Glucose Urine UA >=1000 mg/dL (Negative); Leukocyte Esterase Urine Negative (Negative); Nitrite Urine Negative (Negative); PH 5.5 (5.0-9.0); Specific Gravity - Urine >= 1.030 (1.005-1.025); UMIC TRIGGER UACC YES; Urine Blood Negative (Negative); Urine Ketones Negative (Negative); Urine Protein 300 (3+) mg/dL (Neg-Trace)
[2023-10-07 16:23] LABS: Bacteria Urine None Seen (None Seen); Hyaline Casts Urine 0-2 /LPF (0-2); RBC Urine 0-2 /HPF (0-2); UACC Culture Trigger YES
[2023-10-07 16:34] LABS: Anion Gap 16 (12-20); Calcium 9.3 mg/dL (8.4-10.2); Carbon Dioxide 23 mmol/L (22-29); Chloride 103 mmol/L (96-108); Estimated Glomerular Filt Rate 49; Potassium 4.6 mmol/L (3.3-5.1); Sodium 137 mmol/L (135-145)
[2023-10-07 16:35] LABS: Blood Urea Nitrogen 23 mg/dL (9-16)
[2023-10-07 16:40] LABS: Glucose Random 400 mg/dL (60-115)
[2023-10-07 16:57] LABS: B Type Natriuretic Peptide 39 pg/mL (<100)
[2023-10-07 17:08] LABS: Creatinine Urine 73.14 mg/dL
[2023-10-07 17:13] LABS: Microalbum/Creatinine Ratio Ur 2659.2 ug/mg cr (<30)
== END 2023-10-07 14:23 | disposition home or self-care (01) ==
LOC: HO.HMGCLDS 14:22
PROVIDERS: PCP Nurse Practitioner Family; Referring Provider Nurse Practitioner; Visit Provider Nurse Practitioner Family
DX: I11.0 Hypertensive heart disease with heart failure (principal); I50.9 Heart failure, unspecified; E78.00 Pure hypercholesterolemia, unspecified; E11.9 Type 2 diabetes mellitus without complications; R82.90 Unspecified abnormal findings in urine
CPT/HCPCS: 36415; 80048; 81001; 82043; 82570; 83880; 87086

== ENCOUNTER → 2023-11-06 07:47 | Outpatient (REF) | payer OTHER, SELFPAY ==
--- NOTE | ~2023-11-06 | NM_ITS ---
Myocardial perfusion study Indication: Preoperative cardiac vascular stratification 2 evaluate for myocardial ischemia Technique: The patient was brought in for a Lexiscan perfusion study on 11/06/2023. Patient performed low-level exercise and was injected 0.4 mg of Lexiscan intravenously. Within a minute of injection, 30 mCi of sestamibi was given intravenously. Images were obtained using the SPECT gamma camera interlaced with the gating device. Images were obtained in supine position. Resting perfusion study was performed on 11/09/2023. Patient was administered 30 mCi of sestamibi intravenously at rest. Images were then obtained in supine position. Images obtained with and without CT attenuation. Total DLP 172 mGy-cm. Images were processed with the software and compared side to side in short axis, horizontal long axis and vertical long axis views. Findings: The stress perfusion study showed non attenuated images show no significant reduction uptake in radiotracer in all segments of LV myocardium. Attenuation corrected images show minimally reduced uptake in the apical septum of the LV myocardium.. The gated study shows normal LV systolic function with calculated LVEF of greater than 50%. LV cavity is normal in size. The gated study shows normal systolic wall thickening and contraction of segments. Resting study shows attenuated corrected images show normal uptake of radiotracer in all segments of LV myocardium. Gating at rest reveals normal systolic wall motion with ejection fraction at 54%. The findings are consistent with likely normal myocardial perfusion. NM/NM kirstin perf SPECT rest & str Impression: 1. Myocardial perfusion imaging study shows likely normal myocardial perfusion 2. Gated LVEF is 54% 3. Transient ischemic dilatation not present EKG is nondiagnostic for ischemia
--- NOTE | 2023-11-06 07:50 | CA_ITS ---
Transthoracic Echocardiogram Patient (Last, First, Middle): Caitlyn Connors, Gender: Female Date of : 1960 Age: 63 Procedure Date: 11/06/2023 Procedure Type: Transthoracic Echocardiogram Location: OP Height: 165.1 cm Weight: 85.73 kg BSA: 1.93 m2 Heart Rate: 78 bpm BP: 138 / 78 mmHg Director Of District Office: SB Referring MD: Trista Cuevas NP Symptoms: I10 - Essential (primary) hypertension Study Quality: Adequate ECG Rhythm: Sinus Conclusions: - The left ventricular systolic function is normal. The calculated ejection fraction is 69% by biplane method. - No obvious valvular pathology seen on this study. - Moderate plaque is seen in the arch. Findings Left Ventricle Normal left ventricular cavity size. The left ventricular systolic function is normal. The calculated ejection fraction is 69% by biplane method. There is no evidence of regional wall motion abnormalities. Diastolic function is normal for age. There is mild septal asymmetric hypertrophy. LV peak GLS 15.5%, could be under-estimation. Right Ventricle Normal right ventricular cavity size and systolic function. Atria Both atria are normal in size. Aortic Valve There is a normal trileaflet aortic valve. There is no aortic valve stenosis. There is no aortic valve regurgitation. Mitral Valve The mitral valve appears normal. There is no mitral valve regurgitation. There is no mitral valve stenosis. Pulmonic Valve The pulmonic valve is likely normal. Tricuspid Valve Normal tricuspid valve structure. There is trace tricuspid valve regurgitation. There is no evidence of pulmonary hypertension. Great Vessels The asc aorta is normal in size. Moderate plaque is seen in the arch. Venous The inferior vena cava is normal in size and collapses greater than 50% with inspiration. Pericardium/Pleural There is no evidence of pericardial effusion. Prior Study Comparison Changes noted compared to prior study dated: 06/14/2008. see comment on aortic plaque. Recommendations, Care & Conclusions No obvious valvular pathology seen on this study. Measurements 2D Linear Measurements IVSd: 1.17 0.6-0.9/0.6-1.0 cm LVIDd: 4.36 3.9-5.3/4.2-5.9 cm LVIDd Index: 2.26 2.4-3.2/2.2-3.1 cm/m2 LVIDs: 3.54 2.0-3.6 cm LVPWd: 0.85 0.7-1.1 cm LA Diam: 3.30 2.7-3.8/3.0-4.0 cm LAIDs Index: 1.71 1.5-2.3 cm/m2 LV Mass: 183.38 67-162/88-224 g LV Mass Index: 95.01 43-95/49-115 g/m2 LVOT Diam: 2.20 3.0+(-)1.3 cm 2D Systolic Function EF 4C: 71.60 >55% EF 2C: 64.90 >55% EF BiP: 68.50 >55% Mitral Valve MV Pk E: 0.81 MV PK A: 0.87 MV Decel Time: 242.00 E/A: 0.90 E'Lateral: 7.40 E'Medial: 5.87 E/E' Med: 13.80 E/E' Lat: 10.90 PHT: 71.00 MVA PHT: 3.10 Decel Cowley: 3.35 Aortic Valve AoV Pk Alexander: 1.55 AoV Pk Grad: 10.00 KAMILAH: 3.04 LVOT LVOT Pk Alexander: 1.24 LVOT Mn Alexander: 0.79 LVOT VTI: 0.24 LVOT Pk Grad: 6.00 LVOT Mn Grad: 3.00 LVOT Diam: 2.20 LVOT Area: 3.80 Diastolic Function MV Pk E: 0.81 MV Pk A: 0.87 E/A: 0.90 E'Medial: 5.87 E/E' Med: 13.80 E' Laterial: 7.40 E/E' Lat: 10.90 Right Ventricle TAPSE (mm): 30.80 TVS' Alexander: 16.20 Tricuspid Valve TR Pk Alexander: 2.16 TR Pk Grad: 19.00 RA Press: 8.00 RVSP: 27.00 Great Vessels Aorta Sinus of Valsalva: 3.20 2.0-3.5 cm Ao Asc: 3.50 2.1-3.4 cm Ao Arch: 3.10 Pulmonary Valve PV Pk Alexander: 0.92 Peak PV Grad: 3.00 Updated in Other Vendor System with Status of Final Hernan Hensley MD electronically signed on 11/07/2023 11:10:11 AM with status of Final
--- NOTE | 2023-11-06 07:50 | CA_ITS ---
Acquisition Time: 2023-11-06 09:30:26 Total Exercise Time: 00:02:00 Test Indications: CHF RBBB Medications: SEE H Protocol: LEXISCAN Max HR: 088 BPM 56% of Pred: 155 BPM Max BP: 152/074 mmHG Max Work Load: 1.0 METS Pharmacological stress test with Lexiscan injection while sititng and moving her arm, with mild SOB, no chest discomfort, with isolated PVCs, with normotensive resposne to injection, with nondiagnoisitic EKGs. Nuclear images pending. Test reviewed with Dr. Hensley. Referred By: Trista Cuevas Overread By: Trista Cuevas
== END ==
LOC: HO.CARD 07:47
PROVIDERS: PCP Nurse Practitioner Family; Visit Provider Nurse Practitioner
DX: Z01.818 Encounter for other preprocedural examination (principal); I45.10 Unspecified right bundle-branch block; R00.2 Palpitations; E11.9 Type 2 diabetes mellitus without complications; I11.0 Hypertensive heart disease with heart failure; I50.9 Heart failure, unspecified
CPT/HCPCS: 78452; 93017; 93306; 93356; A9500; J0280; J2785

== ENCOUNTER → 2023-11-06 07:50 | Outpatient (BNV) | payer OTHER, SELFPAY | PROVIDERS: PCP Nurse Practitioner Family; Visit Provider Nurse Practitioner | DX: R06.02 Shortness of breath (principal); I50.9 Heart failure, unspecified | CPT/HCPCS: 78452; 93016; 93018; 93306 ==

== ENCOUNTER 2023-11-19 12:51 | Outpatient (AMB) | payer OTHER, SELFPAY ==
[2023-11-19 12:53] VITALS: BP 118/60; PULSE 68; BMI 32.3
--- NOTE | 2023-11-19 12:53 | MHC.OFFVIS ---
Intake Vital Signs 11/19/23 12:53 Height 5 ft 5 in Weight 194 lb 0.108 oz BMI 32.3 BP 118/60 Blood Pressure Location Lt brachial Position Sitting Pulse 68 Intake Visit Reasons: f/up echo/ elizabeth/ labs Intake Note: follow up after echo and labs. PT feels good Allergies erythromycin base [Erythromycin Base] Allergy (Mild, Verified 11/19/23 13:00) DIFFICULTY BREATHING albuterol Allergy (Unknown, Verified 11/19/23 13:00) Facial flushing meperidine [Demerol] Allergy (Unknown, Verified 11/19/23 13:00) vomiting metoclopramide [Reglan] Allergy (Unknown, Verified 11/19/23 13:00) unsure Erythromycin Allergy (Unknown, Uncoded 11/19/23 13:00) ? if allergy - family allergic to med, Pt stays away from it Medication List - Last Reconciled 11/19/23 by Trista Cuevas, ALONSO amlodipine 10 mg PO DAILY 90 days aspirin 1 tab PO DAILY bisacodyl (Dulcolax (bisacodyl)) 20 mg (4 x 5 mg) PO ONCE 1 day blood sugar diagnostic (FreeStyle Lite Strips) test blood sugar 3 times per day blood-glucose meter (FreeStyle Lite Meter kit) As directed cholecalciferol (vitamin D3) 125 mcg PO DAILY clonidine HCl 0.1 mg PO BEDTIME 30 days ezetimibe 10 mg PO DAILY FreeStyle Sarah 2 [place] (flash glucose scanning reader) tid testing NS FreeStyle Sarah 2 Sensor (flash glucose sensor) tid testing NS insulin glargine (Lantus Solostar U-100 Insulin) 80 units (0.8 mL) subcut DAILY lancets (FreeStyle Lancets) test 3 times per day nystatin 1 appl topical BID omega-3 acid ethyl esters 1 cap PO BID 90 days pen needle, diabetic (BD Ultra-Fine Rimma Pen Needle) daily use diabetes polyethylene glycol 3350 (Miralax) 238 grams PO ONCE rosuvastatin 40 mg PO DAILY 90 days HPI HPI Comments History of Present Illness Details 63-year-old female presents today for a follow-up. She had a pharmacological stress test and echocardiogram. She reports she has been doing much better. She denies any chest pains, shortness of breath, swelling, palpitations, or orthopnea. She reports has been compliant with her medications and starting to become more active. She has been trying to adjust her diet to help control her blood glucose levels. She is due for her colonoscopy soon. [facility] Medical History ASCVD (arteriosclerotic cardiovascular disease) CHF (congestive heart failure) Stroke PAD (peripheral artery disease) Family History Mother Diabetes Father Lung cancer Social History Housing: House Patient Tobacco Use Status: Current everyday Tobacco user Cigarette Packs Per Day: 1 e-Cigarette/Vaping Use: Never Used Second Hand Smoke Exposure: No service: No Current occupational status: employed Current occupation: [employer] Current occupational exposures/hazards: No Cognitive needs: No Hearing needs: No Vision needs: No Review of Systems Const Denies weakness ENT Denies dizziness Card Denies chest pain, Denies chest pain with activity, Denies syncope, Denies rapid heart rate, Denies pedal edema, Denies edema, Denies leg edema, Denies lightheadedness, Denies palpitations, Denies dyspnea, Denies dyspnea on exertion and Denies orthopnea Resp Denies cough, Denies dyspnea and Denies dyspnea on exertion GI Denies hematochezia and Denies change in stool character Musc Denies abnormal gait, Denies muscle cramps, Denies muscle weakness, Denies numbness, Denies radiating pain into limb and Denies tingling Neuro Denies abnormal gait, Denies dizziness, Denies syncope, Denies numbness, Denies tingling and Denies weakness Endo Denies palpitations Physical Exam Vital Signs: Last Vital Signs Pulse 68 11/19/23 12:53 BP 118/60 11/19/23 12:53 BMI result Body Mass Index 32.3 Const General: healthy appearing and no acute distress Orientation/consciousness: patient oriented x3 Limitations: ambulation with walker HEENT Head: Yes normal to inspection Eyes General: appearance normal, both eyes and all related structures Neck Neck: Yes normal visual inspection Chest Chest palpation & inspection: normal inspection of the chest Resp Effort & Inspection: normal respiratory effort Auscultation: clear to auscultation bilaterally Cardio Jugular venous distension: no JVD Palpation: normal PMI Rate: regular rate Rhythm: regular rhythm Heart sounds: S1 normal heart sound present, S2 normal heart sound present, no click, no gallops, no murmurs and no rubs GI Inspection: Yes normal to inspection Palpation (GI): Soft to palpation Skin General skin exam: no rashes or lesions noted Neuro General: patient oriented x3 Extrem General: Yes normal to inspection Psych Appearance: grossly normal Results Reviewed Results Reviewed: 11/06/2023 Echocardiogram Conclusions: - The left ventricular systolic function is normal. The calculated ejection fraction is 69% by biplane method. - No obvious valvular pathology seen on this study. - Moderate plaque is seen in the arch. NM/NM kirstin perf SPECT rest & str Impression: 1. Myocardial perfusion imaging study shows likely normal myocardial perfusion 2. Gated LVEF is 54% 3. Transient ischemic dilatation not present Assessment & Plan Assessment & Plan (1) ASCVD (arteriosclerotic cardiovascular disease): Code(s): I25.10 - Atherosclerotic heart disease of [place] coronary artery without angina pectoris (2) Pre-operative cardiovascular examination: Code(s): Z01.810 - Encounter for preprocedural cardiovascular examination (3) Hypertension: Code(s): I10 - Essential (primary) hypertension (4) Diabetes: Code(s): E11.9 - Type 2 diabetes mellitus without complications Plan Discussed in detail about heart healthy diet and the need for tight blood glucose control. Echocardiogram showed moderate plaque in the arch. On zetia and rosuvastatin - continue. Patient is aware to get fasting labs. Will also check kidneys. Blood pressure is within goal - on amlodipine. She may proceed with colonoscopy at a intermediate cardiac risk. Orders: Orders Basic Metabolic Panel 11/19/23 I25.10 - Atherosclerotic heart disease of [place] coronary artery without angina pectoris Coding Level of Care Code Est Pt Level 4 (41716) Diagnoses ASCVD (arteriosclerotic cardiovascular disease) I25.10 Pre-operative cardiovascular examination Z01.810 Hypertension I10 Diabetes E11.9
== END 2023-11-19 13:22 | disposition home or self-care (01) ==
PROVIDERS: PCP Nurse Practitioner Family; Visit Provider Nurse Practitioner
DX: I25.10 Atherosclerotic heart disease of native coronary artery without angina pectoris (principal); Z01.810 Encounter for preprocedural cardiovascular examination; I10 Essential (primary) hypertension; E11.9 Type 2 diabetes mellitus without complications
CPT/HCPCS: 99214

== ENCOUNTER → 2023-11-19 12:51 | Outpatient (BNVA) | payer OTHER, SELFPAY | PROVIDERS: PCP Nurse Practitioner Family; Visit Provider Nurse Practitioner ==

== ENCOUNTER 2023-12-02 08:58 | Day surgery (SDC) | payer OTHER, SELFPAY ==
[2023-11-30 13:50] VITALS: BMI 32.3
[2023-12-02 10:03] VITALS: BMI 30.8
--- NOTE | 2023-12-02 10:33 | HO.ANESPROP2 ---
[facility] [place] Active Problems Active Problems: All Active Problems (Updated 11/19/23 @ 12:59 by Trista Cuevas NP) ASCVD (arteriosclerotic cardiovascular disease) (Acute) Proteinuria (Acute) Microalbuminuria (Acute) Right bundle branch block (Acute) Spondylosis of lumbar region without myelopathy or radiculopathy (Acute) Osteoarthritis of left knee (Acute) Left knee pain (Acute) Hyperlipidemia (Acute) Pre-op evaluation (Acute) Palpitations (Acute) CHF (congestive heart failure) (Acute) Hypertension (Acute) Vertigo (Acute) Fibromyalgia (Acute) Vitamin D deficiency (Acute) Diabetic arthropathy (Acute) Diabetic neuropathy (Acute) Peripheral vascular disease (Acute) Physical exam (Acute) Screening for colon cancer (Acute) Diabetes (Acute) Left foot pain (Acute) Lumbar back pain (Acute) Left foot pain (Acute) Cough (Acute) Viral conjunctivitis of right eye (Acute) Tracheobronchitis (Acute) Past Medical History Medical History ASCVD (arteriosclerotic cardiovascular disease) CHF (congestive heart failure) Stroke PAD (peripheral artery disease) Functional capacity: uses cane/walker Family History Family History Mother Diabetes Father Lung cancer Family history of problems with anesthesia: No Surgical History History of Problems with Anesthesia: No Social History Social History Housing: House Patient Tobacco Use Status: Current everyday Tobacco user Cigarette Packs Per Day: 1 e-Cigarette/Vaping Use: Never Used Second Hand Smoke Exposure: No Use of substances other than those prescribed or required for medical reasons: No Are you DNR?: No Advance Directives: No Advance Directives Information Provided: Yes service: No Current occupational status: employed Current occupation: [employer] Current occupational exposures/hazards: No Cognitive needs: No Hearing needs: No Vision needs: No Meds Allergies Allergy/AdvReac Type Severity Reaction Status Date / Time erythromycin base Allergy Mild DIFFICULTY Verified 12/02/23 10:05 [Erythromycin Base] BREATHING albuterol Allergy Unknown Facial Verified 12/02/23 10:05 flushing meperidine [Demerol] Allergy Unknown vomiting Verified 12/02/23 10:05 metoclopramide [Reglan] Allergy Unknown unsure Verified 12/02/23 10:05 Erythromycin Allergy Unknown ? if Uncoded 12/02/23 10:05 allergy - family allergic to med, Pt stays away from it Home Medications Medication Instructions Recorded Confirmed Last Taken Type aspirin 81 mg chewable tablet 1 tab PO DAILY 12/19/21 12/02/23 Unknown History cholecalciferol (vitamin D3) 125 125 mcg PO DAILY 02/27/22 12/02/23 Unknown History mcg (5,000 unit) tablet Exam Height,Weight and Vital Signs: Height 5 ft 5 in Weight 83.915 kg Airway Mallampati Class: II TM Dist: <=3cm Neck ROM: Full Denture: Upper Heart: rrr Lungs: cta Assessment and Plan Assessment Anesthesia Assessment: Anesthesia Plan Discussed, Smoking Cess. Discussed and Chart Reviewed Final Anesthetic Review Family History of Problems with Anesthesia: No History of Problems with Anesthesia: No NPO: Yes ASA Class: III Final Preanesthetic Review: No Changes in Pt Med Stat, Meds/Allgs Chart Reviewed, Consent Obtained/Reviewed and Anes Risks/Benef Reviewed Patient Risk: Intermediate Procedure Risk: Intermediate Anesthetic Plan Anesthetic Plan: MAC: Disposition: Standard PACU
[2023-12-02 10:36] VITALS: BP 151/66; PULSE 71; RESP 16; TEMP 37.1; O2SAT 99
--- NOTE | 2023-12-02 11:01 | MHC.SHP ---
Pre-Procedural Eval Section A - 24 Hr Update-Section A only Date of Service: 12/02/23 Section B - Complete if H&P > 30 days Chief Complaint: Encounter for screening for malignant neoplasm of Relevant Family History (Specify if Yes): No Relevant Social History: Tobacco Use Present Medications: see Short Stay Collaborative assessment Medical History: Significant History (ASCVD (arteriosclerotic cardiovascular disease) CHF (congestive heart failure) Stroke PAD (peripheral artery disease)) History of Previous Operations: Relevant previous surgery/procedure and date(s) (colonoscopy 15 yrs ago) Allergies: Allergies Allergy/AdvReac Type Severity Reaction Status Date / Time erythromycin base Allergy Mild DIFFICULTY Verified 12/02/23 10:05 [Erythromycin Base] BREATHING albuterol Allergy Unknown Facial Verified 12/02/23 10:05 flushing meperidine [Demerol] Allergy Unknown vomiting Verified 12/02/23 10:05 metoclopramide [Reglan] Allergy Unknown unsure Verified 12/02/23 10:05 Erythromycin Allergy Unknown ? if Uncoded 12/02/23 10:05 allergy - family allergic to med, Pt stays away from it Review of Systems Sugical H&P ROS: Negative: Constitution, Cardiovascular, Respiratory, Neurological, Psychiatric, Hem-Onc, Allergic/Immunologic, Gastrointestinal, Genitourinary, Musculoskeletal, Integumentary, Endocrine and Eyes/Ears/Nose/Throat Exam Surgical H&P Exam: Normal: HEENT, Normal: Heart, Normal: Lungs, Normal: Extremities, Normal: Abdomen, Normal: Skin and Normal: Neurological Plan Diagnosis/Plan: Unchanged I have reviewed the history and physical and performed a pertinent physical examination on my patient. No changes have occurred unless specified. Time Spent With Patient Time: Total time managing care of this patient today ____ minutes.
--- NOTE | 2023-12-02 11:02 | W.PM.OPN ---
Operative Note Operative Note Date of Service: 12/02/23 Narrative: Operative Information Procedure Description: Colonoscopy Indication: screening Anesthesia: MAC COLONOSCOPY Instrument: Olympus variable stiffness pediatric scope 190L Colonoscopy Monitoring: Vital signs and clinical assessment, continuous EKG monitoring, Pulse oximetry, Carbon Dioxide monitoring and blood pressure monitoring were done throughout the procedure. Colon withdrawal time was 30 minutes. Procedure: The patient was placed in the left lateral decubitis position and pre-procedure medications were administered. After a digital rectal examination of the ano-rectum, the video colonoscope was inserted into the rectum and advanced through the colon to the cecum/TI. The colonoscope was slowly withdrawn in a retrograde panoramic fashion and the colon mucosa was carefully examined including a retroflexed view of the rectum. Findings and interventions are described below. Procedure Difficulty: moderate Findings: Terminal Ileum-not intubated Cecum: x 1 sessile polyp 12-15 mm injected with eleview and removed with cold snare, another laterally spreading granular polyp lesion about 20 mm removed piece meal with cold snare and then the residula tissue raised with eleview and further resected with cold snare Ascending Colon: normal Transverse Colon - x 2 sessile polyps 10 mm removed with cold snare and x 2 sessile polyp 4-5 mm removed with cold forceps Descending Colon:normal Sigmoid Colon: normal Rectum: Retroflexion with small internal hemorrhoids seen, grade I Anorectum - normal Intervention: cold snare and eleview injection, cold forceps polyp pectomy Colon preparation: [place] Bowel Preparation Scale Right colon; 2 Transverse colon: 2 Left colon; 2 (0 = Unprepared colon segment with mucosa not seen due to solid stool that cannot be cleared. 1 = Portion of mucosa of the colon segment seen, but other areas of the colon segment not well seen due to staining, residual stool and/or opaque liquid. 2 = Minor amount of residual staining, small fragments of stool and/or opaque liquid, but mucosa of colon segment seen well. 3 = Entire mucosa of colon segment seen well with no residual staining, small fragments of stool or opaque liquid) Impression and Post Procedure Diagnosis: colon polyps internal hemorrhoids Plan: High fiber diet leaflet Avoid straining at stool, epsom salts and sitz bath, anusol supps or cream Repeat Colonoscopy in 3-6 weeks and next time use adult scope with Hybrid APC and distal attachment or earlier if clinically indicated Above findings were reviewed with the patient and relevant handouts were provided if indicated.
[2023-12-02 12:26] VITALS: BP 117/56; PULSE 81; RESP 17; TEMP 36.3; O2SAT 100
[2023-12-02 12:41] VITALS: BP 176/71; PULSE 79; TEMP 36.4; O2SAT 100
[2023-12-02 12:56] VITALS: BP 170/76; PULSE 78; TEMP 36.4; O2SAT 100
== END 2023-12-02 14:31 | disposition home or self-care (01) ==
PROVIDERS: PCP Nurse Practitioner Family; Visit Provider Internal Medicine Gastroenterology
PROC: 0DJD8ZZ Inspection of Lower Intestinal Tract, Via Natural or Artificial Opening Endoscopic (ICD-10-PCS; CPT 45378; principal; 2023-12-02 12:40)
DX: Z12.11 Encounter for screening for malignant neoplasm of colon (principal); C18.0 Malignant neoplasm of cecum; D12.3 Benign neoplasm of transverse colon; K64.0 First degree hemorrhoids; K21.9 Gastro-esophageal reflux disease without esophagitis; I10 Essential (primary) hypertension; I25.10 Atherosclerotic heart disease of native coronary artery without angina pectoris; E78.5 Hyperlipidemia, unspecified; E11.9 Type 2 diabetes mellitus without complications; I73.9 Peripheral vascular disease, unspecified; R06.02 Shortness of breath; Z86.73 Personal history of transient ischemic attack (TIA), and cerebral infarction without residual deficits; Z79.4 Long term (current) use of insulin; Z79.82 Long term (current) use of aspirin; Z79.899 Other long term (current) drug therapy; Z88.1 Allergy status to other antibiotic agents; Z88.8 Allergy status to other drugs, medicaments and biological substances; F17.210 Nicotine dependence, cigarettes, uncomplicated
CPT/HCPCS: 45385; 45380; 45381; 88305; 88341; 88342; J1610; J2704

== ENCOUNTER → 2023-12-02 08:58 | Outpatient (BNV) | payer OTHER, SELFPAY | PROVIDERS: PCP Nurse Practitioner Family; Visit Provider Internal Medicine Gastroenterology | DX: Z12.11 Encounter for screening for malignant neoplasm of colon (principal); D12.3 Benign neoplasm of transverse colon; D12.0 Benign neoplasm of cecum; K64.0 First degree hemorrhoids | CPT/HCPCS: 45380; 45381; 45385 ==

== ENCOUNTER 2023-12-08 09:18 | Outpatient (AMB) | payer OTHER, SELFPAY ==
--- NOTE | 2023-12-08 09:40 | HO.NEPHOV_ITS ---
HPI HPI Comments History of Present Illness Details I had the privilege of seeing Caitlyn in consultation for proteinuria. She has diabetes over 30 years. She has history of atherosclerotic peripheral arterial disease. She had stents put in in her left lower extremity. She has no history of hypoglycemia . She has no history of cancers. She denies coronary artery disease, CVA, congestive heart failure, carotid stenosis, renal artery stenosis. She is not taking any SHAUNA inhibitor or an ARB. She does not have any hypoglycemias. She denies epistaxis, photosensitivity, hemoptysis, hematemesis, melena, nausea, vomiting, diarrhea, new bone or back pain, nephro lithiasis, history of hypercalcemia. She claims to be compliant with her medications. She has been having edema ever since she has been taking amlodipine. She remains employed and feels well. She has history of hepatitis C which has been treated. She has history of drug use when she was young. She denies taking excessive nonsteroidal anti-inflammatories. [facility] Medical History ASCVD (arteriosclerotic cardiovascular disease) CHF (congestive heart failure) Stroke PAD (peripheral artery disease) Family History Mother Diabetes Father Lung cancer Social History Housing: House Patient Tobacco Use Status: Current everyday Tobacco user Cigarette Packs Per Day: 1 e-Cigarette/Vaping Use: Never Used Second Hand Smoke Exposure: No service: No Current occupational status: employed Current occupation: [employer] Current occupational exposures/hazards: No Cognitive needs: No Hearing needs: No Vision needs: No Vital Signs 12/08/23 09:42 Height 5 ft 5 in Weight 192 lb 2 oz BMI 32.0 BP 110/70 Blood Pressure Location Lt brachial Position Sitting Pulse 72 Pulse Source Pulse Oximeter Pulse Oximetry (%) 99 Oxygen Delivery Method Room Air Physical Exam Vital Signs: Last Vital Signs Pulse 72 12/08/23 09:42 BP 110/70 12/08/23 09:42 Pulse Ox 99 12/08/23 09:42 Oxygen Delivery Method Room Air 12/08/23 09:42 BMI result Body Mass Index 32.0 Const General: comfortable and no acute distress Orientation/consciousness: patient oriented x3 HEENT Head: Yes normocephalic Mouth: Normal oral and palatal mucosa present Eyes EOM: EOMs intact bilaterally Neck Neck: Yes supple Resp Auscultation: clear to auscultation bilaterally Cardio Jugular venous distension: no JVD Rate: regular rate GI Palpation (GI): Soft to palpation Auscultation: normal bowel sounds General: Yes no CVA tenderness Back/Spine/Pelvis Back: no CVA tenderness Skin General skin exam: no rashes or lesions noted Neuro General: patient oriented x3 and moves all extremities Extrem General: Yes edema Assessment & Plan Assessment & Plan (1) Diabetic nephropathy: Code(s): E11.21 - Type 2 diabetes mellitus with diabetic nephropathy Qualifiers: Diabetes mellitus type: type 2 Qualified Code(s): E11.21 - Type 2 diabetes mellitus with diabetic nephropathy (2) CKD stage 3 due to type 2 diabetes mellitus: Code(s): E11.22 - Type 2 diabetes mellitus with diabetic chronic kidney disease; N18.30 - Chronic kidney disease, stage 3 unspecified (3) Hypertension: Code(s): I10 - Essential (primary) hypertension Qualifiers: Hypertension type: primary hypertension Qualified Code(s): I10 - Essential (primary) hypertension (4) ASCVD (arteriosclerotic cardiovascular disease): Code(s): I25.10 - Atherosclerotic heart disease of [place] coronary artery without angina pectoris (5) Proteinuria: Code(s): R80.9 - Proteinuria, unspecified Qualifiers: Proteinuria type: other Qualified Code(s): R80.8 - Other proteinuria Plan Caitlyn has diabetic nephropathy. She has diabetes over 30 years. She has atherosclerotic peripheral arterial disease. I ordered workup including Doppler of renal arteries. She may need a renal biopsy. Her renal functions are stable. I intend initiate her on SHAUNA-inhibitor and SGLT2 inhibitor after reviewing the data the next office visit. I also plan to discontinue her amlodipine and that time if possible given it is contributing to her edema. Her edema can be multifactorial due to vascular disease, amlodipine and proteinuria. She needs to drop some weight and cut back sodium in the diet. She needs to maintain good hydration. She should avoid nonsteroidal anti-inflammatories. I did not make any medication changes today. All questions answered. Follow-up appointment given. Orders: Orders Protein, 24 Hr Urine Group Today E11.21 - Type 2 diabetes mellitus with diabetic nephropathy, E11.22 - Type 2 diabetes mellitus with diabetic chronic kidney disease, I25.10 - Atherosclerotic heart disease of [place] coronary artery without angina pectoris, N18.30 - Chronic kidney disease, stage 3 unspecified, R80.9 - Proteinuria, unspecified Blood Urea Nitrogen Today E11.21 - Type 2 diabetes mellitus with diabetic nephropathy, E11.22 - Type 2 diabetes mellitus with diabetic chronic kidney disease, I25.10 - Atherosclerotic heart disease of [place] coronary artery without angina pectoris, N18.30 - Chronic kidney disease, stage 3 unspecified, R80.9 - Proteinuria, unspecified Anti DNA DS Antibody Today E11.21 - Type 2 diabetes mellitus with diabetic nephropathy, E11.22 - Type 2 diabetes mellitus with diabetic chronic kidney disease, I25.10 - Atherosclerotic heart disease of [place] coronary artery without angina pectoris, N18.30 - Chronic kidney disease, stage 3 unspecified, R80.9 - Proteinuria, unspecified Anti Glomerular Basement Memb Today E11.21 - Type 2 diabetes mellitus with diabetic nephropathy, E11.22 - Type 2 diabetes mellitus with diabetic chronic kidney disease, I25.10 - Atherosclerotic heart disease of [place] coronary artery without angina pectoris, N18.30 - Chronic kidney disease, stage 3 unspecified, R80.9 - Proteinuria, unspecified Complement C3 Today E11.21 - Type 2 diabetes mellitus with diabetic nephropathy, E11.22 - Type 2 diabetes mellitus with diabetic chronic kidney disease, I25.10 - Atherosclerotic heart disease of [place] coronary artery without angina pectoris, N18.30 - Chronic kidney disease, stage 3 unspecified, R80.9 - Proteinuria, unspecified Complement C4 Today E11.21 - Type 2 diabetes mellitus with diabetic nephropathy, E11.22 - Type 2 diabetes mellitus with diabetic chronic kidney disease, I25.10 - Atherosclerotic heart disease of [place] coronary artery without angina pectoris, N18.30 - Chronic kidney disease, stage 3 unspecified, R80.9 - Proteinuria, unspecified Immunofixation, Random Urine Today E11.21 - Type 2 diabetes mellitus with diabetic nephropathy, E11.22 - Type 2 diabetes mellitus with diabetic chronic kidney disease, I25.10 - Atherosclerotic heart disease of [place] coronary artery without angina pectoris, N18.30 - Chronic kidney disease, stage 3 unspecified, R80.9 - Proteinuria, unspecified Complete Blood Count Auto Diff Today E11.21 - Type 2 diabetes mellitus with diabetic nephropathy, E11.22 - Type 2 diabetes mellitus with diabetic chronic kidney disease, I25.10 - Atherosclerotic heart disease of [place] coronary artery without angina pectoris, N18.30 - Chronic kidney disease, stage 3 unspecified, R80.9 - Proteinuria, unspecified Hepatitis B Core Antibody Today E11.21 - Type 2 diabetes mellitus with diabetic nephropathy, E11.22 - Type 2 diabetes mellitus with diabetic chronic kidney disease, I25.10 - Atherosclerotic heart disease of [place] coronary artery without angina pectoris, N18.30 - Chronic kidney disease, stage 3 unspecified, R80.9 - Proteinuria, unspecified Hepatitis B Surface Antigen Today E11.21 - Type 2 diabetes mellitus with diabetic nephropathy, E11.22 - Type 2 diabetes mellitus with diabetic chronic kidney disease, I25.10 - Atherosclerotic heart disease of [place] coronary artery without angina pectoris, N18.30 - Chronic kidney disease, stage 3 unspecified, R80.9 - Proteinuria, unspecified Creatinine Today E11.21 - Type 2 diabetes mellitus with diabetic nephropathy, E11.22 - Type 2 diabetes mellitus with diabetic chronic kidney disease, I25.10 - Atherosclerotic heart disease of [place] coronary artery without angina pectoris, N18.30 - Chronic kidney disease, stage 3 unspecified, R80.9 - Proteinuria, unspecified Electrolytes Today E11.21 - Type 2 diabetes mellitus with diabetic nephropathy, E11.22 - Type 2 diabetes mellitus with diabetic chronic kidney disease, I25.10 - Atherosclerotic heart disease of [place] coronary artery without angina pectoris, N18.30 - Chronic kidney disease, stage 3 unspecified, R80.9 - Proteinuria, unspecified Calcium Today E11.21 - Type 2 diabetes mellitus with diabetic nephropathy, E11.22 - Type 2 diabetes mellitus with diabetic chronic kidney disease, I25.10 - Atherosclerotic heart disease of [place] coronary artery without angina pectoris, N18.30 - Chronic kidney disease, stage 3 unspecified, R80.9 - Proteinuria, unspecified Protein Creatinine Ratio, Ur Today E11.21 - Type 2 diabetes mellitus with diabetic nephropathy, E11.22 - Type 2 diabetes mellitus with diabetic chronic kidney disease, I25.10 - Atherosclerotic heart disease of [place] coronary artery without angina pectoris, N18.30 - Chronic kidney disease, stage 3 unspecified, R80.9 - Proteinuria, unspecified Myeloperoxidase Antibody Today E11.21 - Type 2 diabetes mellitus with diabetic nephropathy, E11.22 - Type 2 diabetes mellitus with diabetic chronic kidney disease, I25.10 - Atherosclerotic heart disease of [place] coronary artery without angina pectoris, N18.30 - Chronic kidney disease, stage 3 unspecified, R80.9 - Proteinuria, unspecified Proteinase 3 PR3 Antibodies Today E11.21 - Type 2 diabetes mellitus with diabetic nephropathy, E11.22 - Type 2 diabetes mellitus with diabetic chronic kidney disease, I25.10 - Atherosclerotic heart disease of [place] coronary artery without angina pectoris, N18.30 - Chronic kidney disease, stage 3 unspecified, R80.9 - Proteinuria, unspecified Immunofixation Pnl, Serum Today E11.21 - Type 2 diabetes mellitus with diabetic nephropathy, E11.22 - Type 2 diabetes mellitus with diabetic chronic kidney disease, I25.10 - Atherosclerotic heart disease of [place] coronary artery without angina pectoris, N18.30 - Chronic kidney disease, stage 3 unspecified, R80.9 - Proteinuria, unspecified Phospholipase A2 Receptor Pnl Today E11.21 - Type 2 diabetes mellitus with diabetic nephropathy, E11.22 - Type 2 diabetes mellitus with diabetic chronic kidney disease, I25.10 - Atherosclerotic heart disease of [place] coronary artery without angina pectoris, N18.30 - Chronic kidney disease, stage 3 unspecified, R80.9 - Proteinuria, unspecified UA and rflx microscopic Today E11.21 - Type 2 diabetes mellitus with diabetic nephropathy, E11.22 - Type 2 diabetes mellitus with diabetic chronic kidney disease, I25.10 - Atherosclerotic heart disease of [place] coronary artery without angina pectoris, N18.30 - Chronic kidney disease, stage 3 unspecified, R80.9 - Proteinuria, unspecified US renal BI Today E11.21 - Type 2 diabetes mellitus with diabetic nephropathy, E11.22 - Type 2 diabetes mellitus with diabetic chronic kidney disease, I25.10 - Atherosclerotic heart disease of [place] coronary artery without angina pectoris, N18.30 - Chronic kidney disease, stage 3 unspecified, R80.9 - Proteinuria, unspecified US renal doppler Today E11.21 - Type 2 diabetes mellitus with diabetic nephropathy, E11.22 - Type 2 diabetes mellitus with diabetic chronic kidney disease, I25.10 - Atherosclerotic heart disease of [place] coronary artery without angina pectoris, N18.30 - Chronic kidney disease, stage 3 unspecified, R80.9 - Proteinuria, unspecified PT, INR - Anti Coag Today E11.21 - Type 2 diabetes mellitus with diabetic nephropathy, E11.22 - Type 2 diabetes mellitus with diabetic chronic kidney disease, I25.10 - Atherosclerotic heart disease of [place] coronary artery without angina pectoris, N18.30 - Chronic kidney disease, stage 3 unspecified, R80.9 - Proteinuria, unspecified Coding Level of Care Code New Pt Level 4 (27754) Diagnoses Diabetic nephropathy associated with type 2 diabetes mellitus E11.21 Diabetes mellitus type: type 2 CKD stage 3 due to type 2 diabetes mellitus E11.22; N18.30 Primary hypertension I10 Hypertension type: primary hypertension ASCVD (arteriosclerotic cardiovascular disease) I25.10 Other proteinuria R80.8 Proteinuria type: other Results Reviewed Nephrology Results: Sodium 137 mmol/L (135-145) 10/07/23 Potassium 4.6 mmol/L (3.3-5.1) 10/07/23 Chloride 103 mmol/L (96-108) 10/07/23 Carbon Dioxide 23 mmol/L (22-29) 10/07/23 BUN 23 mg/dL (9-16) H 10/07/23 Creatinine 1.12 mg/dL (0.5-1.4) 10/07/23 Calcium 9.3 mg/dL (8.4-10.2) 10/07/23 Urine Protein 300 (3+) mg/dL (Neg-Trace) H 10/07/23 Urine Creatinine 73.14 mg/dL 10/07/23
[2023-12-08 09:42] VITALS: BP 110/70; PULSE 72; O2SAT 99; BMI 32.0
== END 2023-12-08 10:25 | disposition home or self-care (01) ==
PROVIDERS: PCP Nurse Practitioner Family; Visit Provider Internal Medicine Nephrology
DX: E11.21 Type 2 diabetes mellitus with diabetic nephropathy (principal); E11.22 Type 2 diabetes mellitus with diabetic chronic kidney disease; N18.30 Chronic kidney disease, stage 3 unspecified; I10 Essential (primary) hypertension; I25.10 Atherosclerotic heart disease of native coronary artery without angina pectoris; R80.8 Other proteinuria
CPT/HCPCS: 99204

== ENCOUNTER → 2023-12-08 09:18 | Outpatient (BNVA) | payer OTHER, SELFPAY | PROVIDERS: PCP Nurse Practitioner Family; Visit Provider Internal Medicine Nephrology ==

== ENCOUNTER 2023-12-08 10:32 | Outpatient (REF) | payer OTHER, SELFPAY ==
[2023-12-08 16:01] LABS: MANUAL DIFF FLAG NO
[2023-12-08 16:17] LABS: Basophils Absolute Auto 0.1 X10*3/uL (0.0-0.2); Basophils Percent Auto 0.6 % (0-2); Eosinophils Absolute Auto 0.2 X10*3/uL (0.0-0.4); Eosinophils Percent Auto 1.8 % (0-4); Hematocrit 39.3 % (37.0-47.0); Hemoglobin 12.8 g/dl (12.0-16.0); Imm Gran Abs Auto 0.02 X10*3/uL (0.00-0.03); Imm Gran Pct Auto 0.2 % (0.0-0.4); Lymphocytes Absolute Auto 2.3 X10*3/uL (1.2-4.9); Lymphocytes Percent Auto 27.5 % (20-40); Mean Corpuscular HGB Conc 32.6 g/dl (31.0-35.0); Mean Corpuscular Hemoglobin 22.3 pg (27.0-33.0); Mean Corpuscular Volume 68.6 fL (80.0-98.0); Mean Platelet Volume 11.2 fL (9.4-12.3); Monocytes Absolute Auto 0.7 X10*3/uL (0.1-1.2); Monocytes Percent Auto 7.8 % (2-11); Neutrophils Absolute Auto 5.1 x10*3/uL (2.0-8.3); Neutrophils Percent Auto 62.1 % (45-73); Platelet Count 225 X10*3/uL (160-400); Red Blood Count 5.73 X10*6/uL (4.20-5.50); Red Cell Distribution Width 13.4 % (11.0-16.0); White Blood Count 8.3 X10*3/uL (4.8-10.8)
[2023-12-08 16:22] LABS: Anion Gap 11 (12-20); Blood Urea Nitrogen 20 mg/dL (9-16); Calcium 9.4 mg/dL (8.4-10.2); Carbon Dioxide 25 mmol/L (22-29); Chloride 110 mmol/L (96-108); Cholesterol 93 mg/dL (<200); Estimated Glomerular Filt Rate > 60; Glucose Random 170 mg/dL (60-115); HDL Cholesterol 41 mg/dL (>40); LDL Cholesterol Calculated 22 mg/dL (<100); Potassium 4.1 mmol/L (3.3-5.1); Sodium 142 mmol/L (135-145); Triglycerides 150 mg/dL (<150)
[2023-12-09 07:41] LABS: HBsAGNum1 0.37 S/CO (0.00-0.99); Hepatitis B Core Antibody Nonreactive (Nonreactive); Hepatitis B Surface Antigen Negative (Negative)
[2023-12-09 22:29] LABS: Anti DNA DS Antibody 3 IU/mL; Anti Glomerular Basement Memb <1.0 AI; Myeloperoxidase Antibody <1.0 AI; Proteinase 3 PR3 Antibodies <1.0 AI
[2023-12-11 14:38] LABS: IgA 112 mg/dL (70-320); IgG 893 mg/dL (600-1540); IgM 145 mg/dL (50-300)
[2023-12-15 16:39] LABS: Phospholipase A2 IgG ELISA <4 RU/mL; Phospholipase A2 IgG IFA NEGATIVE (NEGATIVE)
== END 2023-12-08 10:33 | disposition home or self-care (01) ==
LOC: HO.HKASLDS 10:32
PROVIDERS: Nurse Practitioner; Visit Provider Internal Medicine Nephrology
DX: I25.10 Atherosclerotic heart disease of native coronary artery without angina pectoris (principal); E78.00 Pure hypercholesterolemia, unspecified; E11.22 Type 2 diabetes mellitus with diabetic chronic kidney disease; N18.30 Chronic kidney disease, stage 3 unspecified; E11.21 Type 2 diabetes mellitus with diabetic nephropathy; R80.9 Proteinuria, unspecified
CPT/HCPCS: 36415; 80048; 80061; 82784; 83520; 85025; 86021; 86160; 86225; 86255; 86334; 86704; 87340

== ENCOUNTER 2023-12-09 09:42 | Outpatient (REF) | payer OTHER, SELFPAY ==
[2023-12-09 11:33] LABS: Anion Gap 13 (12-20); Blood Urea Nitrogen 20 mg/dL (9-16); Calcium 9.6 mg/dL (8.4-10.2); Carbon Dioxide 24 mmol/L (22-29); Chloride 109 mmol/L (96-108); Estimated Glomerular Filt Rate > 60; Potassium 4.3 mmol/L (3.3-5.1); Sodium 142 mmol/L (135-145)
[2023-12-09 12:28] LABS: Creatinine Urine 60.32 mg/dL
[2023-12-09 12:29] LABS: Appearance Urine Clear; Color Urine Yellow; Glucose Urine UA >=1000 mg/dL (Negative); Leukocyte Esterase Urine Trace (Negative); Nitrite Urine Negative (Negative); PH 6.5 (5.0-9.0); UMIC TRIGGER UA YES; Urine Blood Negative (Negative); Urine Ketones Negative (Negative); Urine Protein 300 (3+) mg/dL (Neg-Trace)
[2023-12-09 12:31] LABS: Bacteria Urine None Seen (None Seen); Hyaline Casts Urine 0-2 /LPF (0-2); RBC Urine 0-2 /HPF (0-2)
[2023-12-09 12:52] LABS: Protein/Creatinine Ratio, Ur 3.75 (<0.2); Total Protein Urine Random 226 mg/dL (<12)
[2023-12-10 11:43] LABS: Complement C3 85 mg/dL (83-193)
== END 2023-12-09 09:43 | disposition home or self-care (01) ==
LOC: HO.LAB 09:42
PROVIDERS: PCP Nurse Practitioner Family; Visit Provider Internal Medicine Nephrology
DX: E11.22 Type 2 diabetes mellitus with diabetic chronic kidney disease (principal); N18.30 Chronic kidney disease, stage 3 unspecified; E11.21 Type 2 diabetes mellitus with diabetic nephropathy; I25.10 Atherosclerotic heart disease of native coronary artery without angina pectoris; R80.9 Proteinuria, unspecified
CPT/HCPCS: 36415; 80051; 81001; 81003; 82310; 82565; 82570; 84156; 84520; 86160; 86335

== ENCOUNTER 2023-12-16 10:41 | Outpatient (AMB) | payer OTHER, SELFPAY ==
[2023-12-16 10:50] VITALS: BP 147/67; PULSE 74; BMI 31.6
--- NOTE | 2023-12-16 10:50 | A.OFFVIS_ITS ---
Vital Signs 12/16/23 10:50 Height 5 ft 5 in Weight 190 lb 0.615 oz BMI 31.6 BP 147/67 H Blood Pressure Location Rt brachial Position Sitting Pulse 74 Intake Visit Reasons: S/p sharita Salazar Intake Note: Caitlyn returns to in office follow up s/p colonoscopy on 12/02/23 w/Dr. Salazar. CC: Patient reports doing well and denies having any new GI symptoms today. 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 Accompanied by: Self / Same As Patient Allergies meperidine [Demerol] Allergy (Intermediate, Verified 12/16/23 10:51) vomiting albuterol Allergy (Mild, Verified 12/16/23 10:51) Facial flushing erythromycin base [Erythromycin Base] Allergy (Mild, Verified 12/16/23 10:51) DIFFICULTY BREATHING metoclopramide [Reglan] Allergy (Unknown, Verified 12/16/23 10:51) Unknown HPI HPI S/p sharita Salazar: Details: LAST VISIT: Screening for colon cancer Peripheral vascular disease SOBOE (shortness of breath on exertion) Plan What to expect be what to expect before during and after the procedure discussed with patient. Went over the prep with her again. Patient's daughter is present. The importance of her getting evaluated by Cardiology before that procedure was stressed. Patient does have comorbidities like diabetes, smoking, PVD, shortness of breath with exertion, bilateral lower extremity edema, suboptimal stress test in 2007. Decreased perfusion at rest and after exercise of her left ventricle in 2007. Patient will need risk stratification. Denies any issues with anesthesia in the past. No history of sleep apnea. Patient is on low dose aspirin. Adjust patient's insulin does 1 day or in 2 days before the procedure as she will be on clear liquid diet day before the procedure. Patient may take half of the recommended does both evenings and make sure that she checks her blood sugars when she is doing her prep day before the procedure. I will see her after the procedure, sooner on as needed basis. Patient is agreeable to this plan and verbalizes understanding of instructions. She was given the opportunity to ask questions and all questions answered. ? Thank you for allowing me to participate in her care Medications New bisacodyl (Dulcolax (bisacodyl)) take 4 tabs at noon the day before your colonoscopy 20 mg (4 x 5 mg) PO ONCE 1 day 4 tabs 0RF Z12.11 polyethylene glycol 3350 (Miralax) As directed by gastroenterology department at [facility] 238 grams PO ONCE 238 grams 0RF Z12.11 COLONOSCOPY: Findings: Terminal Ileum-not intubated Cecum: x 1 sessile polyp 12-15 mm injected with eleview and removed with cold snare, another laterally spreading granular polyp lesion about 20 mm removed piece meal with cold snare and then the residula tissue raised with eleview and further resected with cold snare Ascending Colon: normal Transverse Colon - x 2 sessile polyps 10 mm removed with cold snare and x 2 sessile polyp 4-5 mm removed with cold forceps Descending Colon:normal Sigmoid Colon: normal Rectum: Retroflexion with small internal hemorrhoids seen, grade I Anorectum - normal Intervention: cold snare and eleview injection, cold forceps polyp pectomy Colon preparation: [place] Bowel Preparation Scale Right colon; 2 Transverse colon: 2 Left colon; 2 (0 = Unprepared colon segment with mucosa not seen due to solid stool that cannot be cleared. 1 = Portion of mucosa of the colon segment seen, but other areas of the colon segment not well seen due to staining, residual stool and/or opaque liquid. 2 = Minor amount of residual staining, small fragments of stool and/or opaque liquid, but mucosa of colon segment seen well. 3 = Entire mucosa of colon segment seen well with no residual staining, small fragments of stool or opaque liquid) Impression and Post Procedure Diagnosis: colon polyps internal hemorrhoids Plan: High fiber diet leaflet Avoid straining at stool, epsom salts and sitz bath, anusol supps or cream Repeat Colonoscopy in 3-6 weeks and next time use adult scope with Hybrid APC and distal attachment or earlier if clinically indicated PATHOLOGY: Addendum Addendum #1 (B): Immunostain results as follows: - MLH1: PRESERVED (Intact nuclear expression) - MSH2: PRESERVED (Intact nuclear expression) - MSH6: PRESERVED (Intact nuclear expression) - PMS2: PRESERVED (Intact nuclear expression) NOTE: Results are NEGATIVE for Mismatch repair defect/ Greer Syndrome-related lesion, however a small percentage of this form of heritable lesions may not be identified by this technique. Electronically Signed By: Raquel Mendez 12/10/23 1001 Diagnosis A. Colon, transverse, polyps: Tubular adenomas (5 pieces); negative for high- grade dysplasia and carcinoma. B. 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 Comment: (B): Definitive submucosal tissue is not present for evaluation of invasion. Endoscopic follow-up with excision of the entire lesion (if applicable) or biopsy of the polypectomy site is recommended TODAY'S VISIT: Patient is here today for follow-up and to discuss colonoscopy results. As mentioned above patient was found to have a high-grade dysplasia and intramucosal adenocarcinoma within the fragmented tubulovillous adenoma in cecum. Patient will need to report for colonoscopy in 3-6 weeks. Colonoscopy is already scheduled and patient has prep at home. Patient denies any issues with anesthesia. No issues with her prep. Patient denies any melena, hematochezia, unintentional weight loss or ribbon like stools. Patient reports that she has been feeling well. Denies any respiratory or cardiac symptoms. [facility] Medical History (Updated 12/26/23 @ 20:00 by Jessenia Butcher [facility]) Tubular adenoma of colon Fibromyalgia Vertigo Osteoarthritis HTN (hypertension) Diabetes Chronic renal insufficiency ASCVD (arteriosclerotic cardiovascular disease) CHF (congestive heart failure) Stroke PAD (peripheral artery disease) Surgical History H/O colonoscopy Family History Mother Diabetes Father Lung cancer Social History Housing: House Patient Tobacco Use Status: Current everyday Tobacco user Tobacco use type: Cigarette Cigarette Packs Per Day: 1 Cigarettes Per Day: 1 e-Cigarette/Vaping Use: Never Used Second Hand Smoke Exposure: No service: No Current occupational status: employed Current occupation: [email or web address] Current occupational exposures/hazards: No Cognitive needs: No Hearing needs: No Vision needs: No Review of Systems Const Denies weight gain and Denies weight loss ENT Reports no additional complaints, Denies dysphagia and Denies odynophagia Card Reports no additional complaints Resp Reports no additional complaints GI Denies abdominal pain, Denies belching, Denies melena, Denies bloating, Denies change in bowel habits, Denies dysphagia, Denies excessive flatus, Denies dyspepsia, Denies heartburn, Denies diarrhea, Denies loose stools, Denies nausea, Denies odynophagia and Denies vomiting Musc Reports no additional complaints Neuro Reports no additional complaints Psych Reports no additional complaints Endo Reports no additional complaints Physical Exam Vital Signs: Last Vital Signs Pulse 74 12/16/23 10:50 BP 147/67 H 12/16/23 10:50 BMI result Body Mass Index 31.6 Const Other: Ambulating with walker General: no acute distress Nutritional Appearance: well nourished and obese Orientation/consciousness: patient oriented x3 Resp Effort & Inspection: normal respiratory effort, able to speak in complete sentences, no tracheal deviation and symmetric chest movement Auscultation: clear to auscultation bilaterally Cardio Rate: regular rate Heart sounds: S1 normal heart sound present and S2 normal heart sound present GI Inspection: Yes normal to inspection, No distended and Yes obesity Palpation (GI): Soft to palpation, not firm, nontender and No hepatosplenomegaly present Auscultation: normal bowel sounds General: Yes no CVA tenderness Back/Spine/Pelvis Back: no CVA tenderness Skin General skin exam: elasticity normal, turgor normal and dry skin Neuro General: patient oriented x3 Psych Appearance: grossly normal Mental Status: mental status grossly normal Assessment & Plan Assessment & Plan (1) Tubular adenoma of colon: Code(s): D12.6 - Benign neoplasm of colon, unspecified Category: Medical (2) Status post colonoscopy: Code(s): Z98.890 - Other specified postprocedural states (3) Tubulovillous adenoma of colon: Code(s): D12.6 - Benign neoplasm of colon, unspecified (4) High grade dysplasia in colonic adenoma: Code(s): D12.6 - Benign neoplasm of colon, unspecified Plan Patient has colonoscopy scheduled already. Denies any issues with anesthesia. Patient did well during the procedure. No ill effects after the procedure. P atient denies melena, hematochezia. The importance of good bowel prep and clear liquid diet day before procedure discussed with patient. Patient has appointment for follow-up set up already.
== END 2023-12-16 12:16 | disposition home or self-care (01) ==
PROVIDERS: PCP Nurse Practitioner Family; Visit Provider Nurse Practitioner Family
DX: D12.6 Benign neoplasm of colon, unspecified (principal); Z98.890 Other specified postprocedural states
CPT/HCPCS: 99214

== ENCOUNTER → 2023-12-16 10:41 | Outpatient (BNVA) | payer OTHER, SELFPAY | PROVIDERS: PCP Nurse Practitioner Family; Visit Provider Nurse Practitioner Family ==

== ENCOUNTER 2023-12-18 12:00 | Day surgery (SDC) | payer OTHER, SELFPAY ==
[2023-12-15 10:19] VITALS: BMI 32.3
--- NOTE | 2023-12-16 11:56 | P.CONAN_ITS ---
Documented by User: Mary Rain NP 12/16/23 11:59 HPI - Anesthesia Eval Consult details Narrative: 63yo F for Colonoscopy s/p same (different scope) 12/02/23 with TIVA. Cardiac cleared prior. [facility] Active Problems Active Problems: All Active Problems CKD stage 3 due to type 2 diabetes mellitus (Acute) Diabetic nephropathy (Acute) Proteinuria (Acute) Microalbuminuria (Acute) Right bundle branch block (Acute) Spondylosis of lumbar region without myelopathy or radiculopathy (Acute) Osteoarthritis of left knee (Acute) Left knee pain (Acute) Hyperlipidemia (Acute) Pre-op evaluation (Acute) Palpitations (Acute) Hypertension (Acute) Vertigo (Acute) Fibromyalgia (Acute) Vitamin D deficiency (Acute) Diabetic arthropathy (Acute) Diabetic neuropathy (Acute) Peripheral vascular disease (Acute) Physical exam (Acute) Screening for colon cancer (Acute) Diabetes (Acute) Left foot pain (Acute) Lumbar back pain (Acute) Left foot pain (Acute) Cough (Acute) Viral conjunctivitis of right eye (Acute) Tracheobronchitis (Acute) ASCVD (arteriosclerotic cardiovascular disease) (Acute) CHF (congestive heart failure) (Acute) Past Medical History Medical History Fibromyalgia Vertigo Osteoarthritis HTN (hypertension) Diabetes Chronic renal insufficiency ASCVD (arteriosclerotic cardiovascular disease) CHF (congestive heart failure) Stroke PAD (peripheral artery disease) Family History Family History Mother Diabetes Father Lung cancer Family history of problems with anesthesia: No Surgical History Surgical History H/O colonoscopy History of Problems with Anesthesia: No Social History Social History Housing: House Patient Tobacco Use Status: Current everyday Tobacco user Tobacco use type: Cigarette Cigarette Packs Per Day: 1 Cigarettes Per Day: 1 e-Cigarette/Vaping Use: Never Used Date Education Initiated: 12/18/23 Second Hand Smoke Exposure: No Use of substances other than those prescribed or required for medical reasons: No Are you DNR?: No Advance Directives: No Advance Directives Information Provided: Yes service: No Current occupational status: employed Current occupation: [employer] Current occupational exposures/hazards: No Cognitive needs: No Hearing needs: No Vision needs: No Meds Allergies Allergy/AdvReac Type Severity Reaction Status Date / Time meperidine [Demerol] Allergy Intermediate vomiting Verified 12/16/23 10:51 albuterol Allergy Mild Facial Verified 12/16/23 10:51 flushing erythromycin base Allergy Mild DIFFICULTY Verified 12/16/23 10:51 [Erythromycin Base] BREATHING metoclopramide [Reglan] Allergy Unknown Unknown Verified 12/16/23 10:51 Home Medications ?Medication ?Instructions ?Recorded ?Confirmed ?Last Taken ?Type aspirin 81 mg chewable tablet 1 tab PO DAILY 12/19/21 12/15/23 12/11/23 History cholecalciferol (vitamin D3) 125 125 mcg PO DAILY 02/27/22 12/15/23 Unknown History mcg (5,000 unit) tablet alpha lipoic acid 600 mg capsule 600 mg PO DAILY 12/08/23 12/15/23 Unknown History methylsulfonylmethane 1,000 mg 1,000 mg PO DAILY 12/08/23 12/15/23 Unknown History capsule (MSM) nystatin 100,000 unit/gram topical 1 appl topical BID PRN 12/16/23 Unknown History powder Exam Height,Weight and Vital Signs: Height 5 ft 5 in Weight 87.997 kg Pertinent Lab Results Pertinent Lab Results: Laboratory Tests 12/08/23 12/09/23 10:35 10:09 WBC 8.3 Hgb 12.8 Hct 39.3 Plt Count 225 Sodium 142 Potassium 4.3 Chloride 109 H Carbon Dioxide 24 BUN 20 H Creatinine 0.87 Narrative Narrative: EKG 09/2023 Normal Sinus Rhythm with Right Bundle Branch Block. Rate 76 bpm. QRS 138 ms. QTc 483ms. ECHO 11/2023 Conclusions: - The left ventricular systolic function is normal. The calculated ejection fraction is 69% by biplane method. - No obvious valvular pathology seen on this study. - Moderate plaque is seen in the arch. NM kirstin perf SPECT rest & str 11/2023 Impression: 1. Myocardial perfusion imaging study shows likely normal myocardial perfusion 2. Gated LVEF is 54% 3. Transient ischemic dilatation not present EKG is nondiagnostic for ischemia Assessment and Plan Assessment Anesthesia Assessment: Chart Reviewed Final Anesthetic Review Family History of Problems with Anesthesia: No History of Problems with Anesthesia: No Documented by User: Angelika Saldaña MD 12/18/23 12:47 PMFSH Past Medical History Medical History Fibromyalgia Vertigo Osteoarthritis HTN (hypertension) Diabetes Chronic renal insufficiency ASCVD (arteriosclerotic cardiovascular disease) CHF (congestive heart failure) Stroke PAD (peripheral artery disease) Family History Family History Mother Diabetes Father Lung cancer Surgical History Surgical History H/O colonoscopy Social History Social History Housing: House Patient Tobacco Use Status: Current everyday Tobacco user Tobacco use type: Cigarette Cigarette Packs Per Day: 1 Cigarettes Per Day: 1 e-Cigarette/Vaping Use: Never Used Date Education Initiated: 12/18/23 Second Hand Smoke Exposure: No Use of substances other than those prescribed or required for medical reasons: No Are you DNR?: No Advance Directives: No Advance Directives Information Provided: Yes service: No Current occupational status: employed Current occupation: [employer] Current occupational exposures/hazards: No Cognitive needs: No Hearing needs: No Vision needs: No Meds Allergies Allergy/AdvReac Type Severity Reaction Status Date / Time meperidine [Demerol] Allergy Intermediate vomiting Verified 12/16/23 10:51 albuterol Allergy Mild Facial Verified 12/16/23 10:51 flushing erythromycin base Allergy Mild DIFFICULTY Verified 12/16/23 10:51 [Erythromycin Base] BREATHING metoclopramide [Reglan] Allergy Unknown Unknown Verified 12/16/23 10:51 Home Medications ?Medication ?Instructions ?Recorded ?Confirmed ?Last Taken ?Type aspirin 81 mg chewable tablet 1 tab PO DAILY 12/19/21 12/15/23 12/11/23 History cholecalciferol (vitamin D3) 125 125 mcg PO DAILY 02/27/22 12/15/23 Unknown History mcg (5,000 unit) tablet alpha lipoic acid 600 mg capsule 600 mg PO DAILY 12/08/23 12/15/23 Unknown History methylsulfonylmethane 1,000 mg 1,000 mg PO DAILY 12/08/23 12/15/23 Unknown History capsule (MSM) nystatin 100,000 unit/gram topical 1 appl topical BID PRN 12/16/23 Unknown History powder Exam Airway Mallampati Class: II TM Dist: >3cm Neck ROM: Full Denture: Upper Heart: rrr Lungs: cta Assessment and Plan Assessment Anesthesia Assessment: Anesthesia Plan Discussed Final Anesthetic Review NPO: Yes ASA Class: III Final Preanesthetic Review: No Changes in Pt Med Stat, Meds/Allgs Chart Reviewed and Consent Obtained/Reviewed Patient Risk: Low Procedure Risk: Low Anesthetic Plan Anesthetic Plan: MAC: Disposition: Standard PACU
--- NOTE | 2023-12-18 12:19 | MHC.SHP ---
Pre-Procedural Eval Section A - 24 Hr Update-Section A only Date of Service: 12/18/23 Section B - Complete if H&P > 30 days Chief Complaint: Polyp of colon Relevant Family History (Specify if Yes): No Relevant Social History: Tobacco Use Present Medications: see Short Stay Collaborative assessment Medical History: Significant History (Fibromyalgia Vertigo Osteoarthritis HTN (hypertension) Diabetes Chronic renal insufficiency ASCVD (arteriosclerotic cardiovascular disease) CHF (congestive heart failure) Stroke PAD (peripheral artery disease)) History of Previous Operations: Relevant previous surgery/procedure and date(s) (H/O colonoscopy) Allergies: Allergies Allergy/AdvReac Type Severity Reaction Status Date / Time meperidine [Demerol] Allergy Intermediate vomiting Verified 12/16/23 10:51 albuterol Allergy Mild Facial Verified 12/16/23 10:51 flushing erythromycin base Allergy Mild DIFFICULTY Verified 12/16/23 10:51 [Erythromycin Base] BREATHING metoclopramide [Reglan] Allergy Unknown Unknown Verified 12/16/23 10:51 Review of Systems Sugical H&P ROS: Yes, Specify: Constitution, Cardiovascular, Respiratory, Neurological, Psychiatric, Hem-Onc, Allergic/Immunologic, Gastrointestinal, Genitourinary, Musculoskeletal, Integumentary, Endocrine and Eyes/Ears/Nose/Throat Exam Surgical H&P Exam: Normal: HEENT, Normal: Heart, Normal: Lungs, Normal: Extremities, Normal: Abdomen, Normal: Skin and Normal: Neurological Plan Diagnosis/Plan: Unchanged I have reviewed the history and physical and performed a pertinent physical examination on my patient. No changes have occurred unless specified. Time Spent With Patient Time: Total time managing care of this patient today ____ minutes.
[2023-12-18 12:24] VITALS: BMI 31.2
[2023-12-18 12:37] LABS: Glucose, Whole Blood 247 mg/dL (60-115)
[2023-12-18] MEDS: Lactated Ringers 1,000 ML 100 ML IVCONT (12:56)
--- NOTE | 2023-12-18 14:27 | P.OP_ITS ---
Operative Note Operative Note Date of Service: 12/18/23 Narrative: Operative Information Procedure Description: Colonoscopy Indication: hx of polyp Anesthesia: MAC COLONOSCOPY Instrument: Olympus variable stiffness ADULT scope 190L Colonoscopy Monitoring: Vital signs and clinical assessment, continuous EKG monitoring, Pulse oximetry, Carbon Dioxide monitoring and blood pressure monitoring were done throughout the procedure. Colon withdrawal time was 50 minutes. Procedure: The patient was placed in the left lateral decubitis position and pre-procedure medications were administered. After a digital rectal examination of the ano-rectum, the video colonoscope was inserted into the rectum and advanced through the colon to the cecum/TI. The colonoscope was slowly withdrawn in a retrograde panoramic fashion and the colon mucosa was carefully examined including a retroflexed view of the rectum. Findings and interventions are described below. Procedure Difficulty: moderate Findings: Terminal Ileum-normal Cecum: laterally spreading granular tumour noted about 18-20 mm, raised with ERBE jet and then removed piece meal with cold snare and biopsy forceps, base then ablated at 40 W using APC. Ascending Colon: x 4 sessile polyps 10-12 removed with cold snare Transverse Colon - x 2 sessile polyps 10-12 mm removed with cold snare Descending Colon:normal Sigmoid Colon: normal Rectum: Retroflexion with small internal hemorrhoids seen, grade I Anorectum - normal Intervention: Hybrid APC, EMR, cold snare, biopsy forceps Colon preparation: Benedict Bowel Preparation Scale Right colon; 2 Transverse colon: 3 Left colon; 3 (0 = Unprepared colon segment with mucosa not seen due to solid stool that cannot be cleared. 1 = Portion of mucosa of the colon segment seen, but other areas of the colon segment not well seen due to staining, residual stool and/or opaque liquid. 2 = Minor amount of residual staining, small fragments of stool and/or opaque liquid, but mucosa of colon segment seen well. 3 = Entire mucosa of colon segment seen well with no residual staining, small fragments of stool or opaque liquid) Impression and Post Procedure Diagnosis: colon polyps internal hemorrhoids Plan: High fiber diet leaflet Avoid straining at stool, epsom salts and sitz bath, anusol supps or cream Repeat Colonoscopy in 4-6 weeks or earlier if clinically indicated- unless neoplasia confirmed then refer to colorectal surgery and get imaging, CEA Avoid nsaids for 5 days Above findings were reviewed with the patient and relevant handouts were provided if indicated.
[2023-12-18 14:33] VITALS: BP 151/61; PULSE 90; RESP 18; TEMP 36.9; O2SAT 100
[2023-12-18 14:48] VITALS: BP 145/67; PULSE 87; RESP 18; TEMP 36.7; O2SAT 99
== END 2023-12-18 15:21 | disposition home or self-care (01) ==
PROVIDERS: PCP Nurse Practitioner Family; Visit Provider Internal Medicine Gastroenterology
PROC: 0DJD8ZZ Inspection of Lower Intestinal Tract, Via Natural or Artificial Opening Endoscopic (ICD-10-PCS; CPT 45378; principal; 2023-12-18 13:00)
DX: Z12.11 Encounter for screening for malignant neoplasm of colon (principal); Z86.010 Personal history of colon polyps; D12.0 Benign neoplasm of cecum; D12.2 Benign neoplasm of ascending colon; K64.0 First degree hemorrhoids; K64.4 Residual hemorrhoidal skin tags; I73.9 Peripheral vascular disease, unspecified; I25.10 Atherosclerotic heart disease of native coronary artery without angina pectoris; I13.0 Hypertensive heart and chronic kidney disease with heart failure and stage 1 through stage 4 chronic kidney disease, or unspecified chronic kidney disease; I50.9 Heart failure, unspecified; N18.30 Chronic kidney disease, stage 3 unspecified; E11.22 Type 2 diabetes mellitus with diabetic chronic kidney disease; Z79.4 Long term (current) use of insulin; Z79.82 Long term (current) use of aspirin; Z79.899 Other long term (current) drug therapy; Z86.73 Personal history of transient ischemic attack (TIA), and cerebral infarction without residual deficits; Z88.1 Allergy status to other antibiotic agents; Z88.5 Allergy status to narcotic agent; Z88.8 Allergy status to other drugs, medicaments and biological substances; F17.210 Nicotine dependence, cigarettes, uncomplicated
CPT/HCPCS: 45385; 45380; 45381; 82947; 88305; C2618; J2704; Q9968

== ENCOUNTER → 2023-12-18 12:00 | Outpatient (BNV) | payer OTHER, SELFPAY | PROVIDERS: PCP Nurse Practitioner Family; Visit Provider Internal Medicine Gastroenterology | DX: Z12.11 Encounter for screening for malignant neoplasm of colon (principal); K63.5 Polyp of colon; K64.8 Other hemorrhoids; Z86.010 Personal history of colon polyps | CPT/HCPCS: 45381; 45385; 45388 ==

== ENCOUNTER 2023-12-23 09:54 | Outpatient (REF) | payer OTHER, SELFPAY ==
--- NOTE | ~2023-12-23 | US_ITS ---
EXAMINATION: ULTRASOUND RENAL WITH DOPPLER CLINICAL INFORMATION: Stage III chronic kidney disease; proteinuria. COMPARISON: None. TECHNIQUE: Real-time grayscale, color Doppler, and duplex Doppler evaluation of the kidneys and renal vasculature was performed. FINDINGS: RENAL MEASUREMENTS: Right: 9.9 x 4.7 x 5.5 cm (Sag x AP x TV) Left: 13.6 x 6.0 x 6.1 cm (Sag x AP x TV) The renal parenchyma appears normal. At the lower pole of the right kidney, a 1.4 cm benign, simple cyst is seen. At the upper pole of the left kidney, a 1.1 cm benign, simple cyst is seen. These require no imaging follow-up. At the interpolar left kidney, a 2 mm nonobstructing calculus is seen, with twinkle artifact. DOPPLER INTERROGATION: Aorta: 95 cm/sec Right Main Renal Artery: Proximal: 96 cm/sec Mid: 162 cm/sec Distal: 155 cm/sec Left Main Renal Artery: Proximal: 188 cm/sec Mid: 301 cm/sec Distal: 251 cm/sec Renal-Aortic Ratio (RAR): Right: 1.7 Left: 3.2 Right upper pole and interpolar and left pole interpolar and lower pole segmental arteriolar resistive indices are elevated. Bilateral upper pole, interpolar and lower pole segmental arteriolar pulse doppler waveforms are unremarkable, with uniformly rapid upstrokes and no parvus et tardus configuration. US/US renal doppler IMPRESSION: 1. No hemodynamically significant right renal artery stenosis is seen. 2. Duplex findings are consistent with less than 60% left renal artery stenosis. 3. A 2 mm nonobstructing left renal calculus is seen. No right renal calculus is seen. No hydronephrosis is noted bilaterally.
--- NOTE | ~2023-12-23 | US_ITS ---
EXAMINATION: ULTRASOUND RENAL WITH DOPPLER CLINICAL INFORMATION: Stage III chronic kidney disease; proteinuria. COMPARISON: None. TECHNIQUE: Real-time grayscale, color Doppler, and duplex Doppler evaluation of the kidneys and renal vasculature was performed. FINDINGS: RENAL MEASUREMENTS: Right: 9.9 x 4.7 x 5.5 cm (Sag x AP x TV) Left: 13.6 x 6.0 x 6.1 cm (Sag x AP x TV) The renal parenchyma appears normal. At the lower pole of the right kidney, a 1.4 cm benign, simple cyst is seen. At the upper pole of the left kidney, a 1.1 cm benign, simple cyst is seen. These require no imaging follow-up. At the interpolar left kidney, a 2 mm nonobstructing calculus is seen, with twinkle artifact. DOPPLER INTERROGATION: Aorta: 95 cm/sec Right Main Renal Artery: Proximal: 96 cm/sec Mid: 162 cm/sec Distal: 155 cm/sec Left Main Renal Artery: Proximal: 188 cm/sec Mid: 301 cm/sec Distal: 251 cm/sec Renal-Aortic Ratio (RAR): Right: 1.7 Left: 3.2 Right upper pole and interpolar and left pole interpolar and lower pole segmental arteriolar resistive indices are elevated. Bilateral upper pole, interpolar and lower pole segmental arteriolar pulse doppler waveforms are unremarkable, with uniformly rapid upstrokes and no parvus et tardus configuration. US/US renal BI IMPRESSION: 1. No hemodynamically significant right renal artery stenosis is seen. 2. Duplex findings are consistent with less than 60% left renal artery stenosis. 3. A 2 mm nonobstructing left renal calculus is seen. No right renal calculus is seen. No hydronephrosis is noted bilaterally.
== END 2023-12-23 09:55 | disposition home or self-care (01) ==
LOC: HO.US 09:54
PROVIDERS: PCP Nurse Practitioner Family; Visit Provider Internal Medicine Nephrology
DX: I25.10 Atherosclerotic heart disease of native coronary artery without angina pectoris (principal); R80.9 Proteinuria, unspecified; E11.21 Type 2 diabetes mellitus with diabetic nephropathy; E11.22 Type 2 diabetes mellitus with diabetic chronic kidney disease; N18.30 Chronic kidney disease, stage 3 unspecified
CPT/HCPCS: 76775; 93975

== ENCOUNTER 2023-12-28 10:49 | Outpatient (REF) | payer OTHER, SELFPAY ==
[2023-12-28 11:35] LABS: Total Volume 24 Hour Urine 1500 mL
[2023-12-28 11:49] LABS: Creatinine, 24Hr Urine 1.7 G/Day (1.0-2.0); Creatinine, mg/dL 116.07
[2023-12-28 12:07] LABS: Protein 24 Hr Urine 4635 mg/Day (<150); Protein mg/dL 309 mg/dL
== END 2023-12-28 10:50 | disposition home or self-care (01) ==
LOC: HO.LNP 10:49
PROVIDERS: Visit Provider Internal Medicine Nephrology
DX: E11.22 Type 2 diabetes mellitus with diabetic chronic kidney disease (principal); N18.30 Chronic kidney disease, stage 3 unspecified; E11.21 Type 2 diabetes mellitus with diabetic nephropathy; I25.10 Atherosclerotic heart disease of native coronary artery without angina pectoris; R80.9 Proteinuria, unspecified
CPT/HCPCS: 84156

== ENCOUNTER 2024-01-05 09:37 | Outpatient (AMB) | payer OTHER, SELFPAY ==
--- NOTE | 2024-01-05 09:56 | A.OFFVIS_ITS ---
Vital Signs 01/05/24 09:58 Height 5 ft 5 in Weight 187 lb BMI 31.1 BP 190/88 H Blood Pressure Location Lt brachial Position Sitting Pulse 76 Intake Visit Reasons: s/p colonoscopy Intake Note: Patient follow up for Colonoscopy results. Patient denies any GI issues. 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 Denies any issues with anesthesia. Patient did well during the procedure. No ill effects after the procedure. Patient denies melena, hematochezia. The importance of good bowel prep and clear liquid diet day before procedure discussed with patient. Patient has appointment for follow-up set up already. COLONOSCOPY Findings: Terminal Ileum-normal Cecum: laterally spreading granular tumour noted about 18-20 mm, raised with ERBE jet and then removed piece meal with cold snare and biopsy forceps, base then ablated at 40 W using APC. Ascending Colon: x 4 sessile polyps 10-12 removed with cold snare Transverse Colon - x 2 sessile polyps 10-12 mm removed with cold snare Descending Colon:normal Sigmoid Colon: normal Rectum: Retroflexion with small internal hemorrhoids seen, grade I Anorectum - normal Intervention: Hybrid APC, EMR, cold snare, biopsy forceps Colon preparation: [place] Bowel Preparation Scale Right colon; 2 Transverse colon: 3 Left colon; 3 (0 = Unprepared colon segment with mucosa not seen due to solid stool that cannot be cleared. 1 = Portion of mucosa of the colon segment seen, but other areas of the colon segment not well seen due to staining, residual stool and/or opaque liquid. 2 = Minor amount of residual staining, small fragments of stool and/or opaque liquid, but mucosa of colon segment seen well. 3 = Entire mucosa of colon segment seen well with no residual staining, small fragments of stool or opaque liquid) Impression and Post Procedure Diagnosis: colon polyps internal hemorrhoids Plan: High fiber diet leaflet Avoid straining at stool, epsom salts and sitz bath, anusol supps or cream Repeat Colonoscopy in 4-6 weeks or earlier if clinically indicated- unless neoplasia confirmed then refer to colorectal surgery and get imaging, CEA Avoid nsaids for 5 days PATHOLOGY RESULTS Diagnosis A. Colon, cecal polyp: Tubulovillous adenoma, fragmented; negative for high- grade dysplasia and carcinoma (see comment). B. Colon, ascending, polyps: Sessile serrated lesions/polyps without dysplasia (multiple pieces) and tubular adenomas (multiple pieces); negative for high-grade dysplasia and carcinoma. Comment: (A): The margin cannot be evaluated and endoscopic follow-up to ensure there is no residual lesion is warranted. TODAY'S VISIT: Colonoscopy results discussed with patient. Patient denies any ill effects from the prep, anesthesia or procedure itself. Biopsy results discussed with patient. Patient denies any melena, hematochezia, unintentional weight loss or ribbon like stools. Patient denies any GI concerning symptoms. Aware that she needs to go for another colonoscopy. [facility] Medical History (Updated 01/05/24 @ 09:57 by Yari Gifford) Tubular adenoma of colon Fibromyalgia Vertigo Osteoarthritis HTN (hypertension) Diabetes Chronic renal insufficiency ASCVD (arteriosclerotic cardiovascular disease) CHF (congestive heart failure) Stroke PAD (peripheral artery disease) Surgical History (Updated 01/05/24 @ 09:57 by Yari Gifford) Hx of cataract H/O colonoscopy Family History Mother Diabetes Father Lung cancer Social History Housing: House Patient Tobacco Use Status: Current everyday Tobacco user Tobacco use type: Cigarette Cigarette Packs Per Day: 1 Cigarettes Per Day: 1 e-Cigarette/Vaping Use: Never Used Second Hand Smoke Exposure: No service: No Current occupational status: employed Current occupation: [id number] Current occupational exposures/hazards: No Cognitive needs: No Hearing needs: No Vision needs: No Review of Systems Const Denies weight gain and Denies weight loss ENT Reports no additional complaints, Denies dysphagia and Denies odynophagia Card Reports no additional complaints Resp Reports no additional complaints GI Denies abdominal pain, Denies belching, Denies melena, Denies bloating, Denies change in bowel habits, Denies dysphagia, Denies excessive flatus, Denies dyspepsia, Denies heartburn, Denies diarrhea, Denies loose stools, Denies nausea, Denies odynophagia and Denies vomiting Reports no additional complaints Musc Reports no additional complaints Neuro Reports no additional complaints Psych Reports no additional complaints Endo Reports no additional complaints Physical Exam Vital Signs: Last Vital Signs Pulse 76 01/05/24 09:58 BP 190/88 H 01/05/24 09:58 BMI result Body Mass Index 31.1 Const Other: Ambulating with walker General: no acute distress Nutritional Appearance: well nourished and obese Orientation/consciousness: patient oriented x3 Resp Effort & Inspection: normal respiratory effort, able to speak in complete sentences, no tracheal deviation and symmetric chest movement Auscultation: clear to auscultation bilaterally Cardio Rate: regular rate Heart sounds: S1 normal heart sound present and S2 normal heart sound present GI Inspection: Yes normal to inspection, No distended and Yes obesity Palpation (GI): Soft to palpation, not firm, nontender and No hepatosplenomegaly present Auscultation: normal bowel sounds General: Yes no CVA tenderness Back/Spine/Pelvis Back: no CVA tenderness Skin General skin exam: elasticity normal, turgor normal and dry skin Neuro General: patient oriented x3 Psych Appearance: grossly normal Mental Status: mental status grossly normal Assessment & Plan Assessment & Plan (1) Tubular adenoma of colon: Code(s): D12.6 - Benign neoplasm of colon, unspecified Category: Medical (2) Screening for colon cancer: Code(s): Z12.11 - Encounter for screening for malignant neoplasm of colon Category: Medical (3) Status post colonoscopy: Code(s): Z98.890 - Other specified postprocedural states (4) Tubulovillous adenoma of colon: Code(s): D12.6 - Benign neoplasm of colon, unspecified (5) High grade dysplasia in colonic adenoma: Code(s): D12.6 - Benign neoplasm of colon, unspecified Plan Colonoscopy in 4-6 weeks. If unable make it that soon will schedule CT scan w ith IV and oral contrast. What to expect before during and after procedure discussed with patient. Patient denies any ill effects from the prep, anesthesia or procedure itself. Denies any cardiac or respiratory symptoms. Discussed with patient the importance of clear liquid diet and good bowel prep I will see patient after the procedure, sooner on as needed basis. Patient is agreeable to this plan and verbalizes understanding of instructions. She was given the opportunity to ask questions and all questions answered. Thank you for allowing me to participate in her care Orders: Orders Blood Urea Nitrogen Today R10.11 - Right upper quadrant pain CT abdomen pelvis w IV con Today R10.9 - Unspecified abdominal pain Creatinine Today R10.11 - Right upper quadrant pain Medications: New polyethylene glycol 3350 (Miralax) As directed by gastroenterology department at [facility] 238 grams PO ONCE 238 grams 0RF Z12.11 - Encounter for screening for malignant neoplasm of colon bisacodyl (Dulcolax (bisacodyl)) take 4 tabs at noon the day before your colonoscopy 20 mg (4 x 5 mg) PO ONCE 1 day 4 tabs 0RF Z12.11 - Encounter for screening for malignant neoplasm of colon Coding Level of Care Code Est Pt Level 3 (87126) Diagnoses Tubular adenoma of colon D12.6 Screening for colon cancer Z12.11 Status post colonoscopy Z98.890 Tubulovillous adenoma of colon D12.6 High grade dysplasia in colonic adenoma D12.6 Time Spent (min) 30 Comment 20 minutes spent with patient and additional 10 minutes spent reviewing her records
[2024-01-05 09:58] VITALS: BP 190/88; PULSE 76; BMI 31.1
== END 2024-01-05 10:49 | disposition home or self-care (01) ==
PROVIDERS: PCP Nurse Practitioner Family; Visit Provider Nurse Practitioner Family
DX: D12.6 Benign neoplasm of colon, unspecified (principal); Z12.11 Encounter for screening for malignant neoplasm of colon; Z98.890 Other specified postprocedural states
CPT/HCPCS: 99213

== ENCOUNTER → 2024-01-05 09:37 | Outpatient (BNVA) | payer OTHER, SELFPAY | PROVIDERS: PCP Nurse Practitioner Family; Visit Provider Nurse Practitioner Family ==

== ENCOUNTER 2024-01-06 10:59 | Outpatient (AMB) | payer OTHER, SELFPAY ==
[2024-01-06 11:12] VITALS: BP 140/60; PULSE 77; O2SAT 100; BMI 31.7
--- NOTE | 2024-01-06 11:12 | HO.NEPHOV ---
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 She has diabetes over 30 years. She has history of atherosclerotic peripheral arterial disease. She had stents put in in her left lower extremity. She has no history of hypoglycemia . She has no history of cancers. She denies coronary artery disease, CVA, congestive heart failure, carotid stenosis, renal artery stenosis. She is not taking any SHAUNA inhibitor or an ARB. She does not have any hypoglycemias. She denies epistaxis, photosensitivity, hemoptysis, hematemesis, melena, nausea, vomiting, diarrhea, new bone or back pain, nephrolithiasis, history of hypercalcemia. She claims to be compliant with her medications. She has been having edema ever since she has been taking amlodipine. She remains employed and feels well. She has history of hepatitis C which has been treated. She has history of drug use when she was young. She denies taking excessive nonsteroidal anti-inflammatories. [facility] Medical History (Updated 01/05/24 @ 09:57 by Yari Gifford) Tubular adenoma of colon Fibromyalgia Vertigo Osteoarthritis HTN (hypertension) Diabetes Chronic renal insufficiency ASCVD (arteriosclerotic cardiovascular disease) CHF (congestive heart failure) Stroke PAD (peripheral artery disease) Surgical History Hx of cataract H/O colonoscopy Family History Mother Diabetes Father Lung cancer Social History (Reviewed 01/06/24 @ 11:14 by ARIELLE Galarza Housing: House Patient Tobacco Use Status: Current everyday Tobacco user Tobacco use type: Cigarette Cigarette Packs Per Day: 1 Cigarettes Per Day: 1 e-Cigarette/Vaping Use: Never Used Second Hand Smoke Exposure: No service: No Current occupational status: employed Current occupation: [employer] Current occupational exposures/hazards: No Cognitive needs: No Hearing needs: No Vision needs: No Physical Exam Vital Signs: Last Vital Signs Pulse 77 01/06/24 11:12 BP 140/60 H 01/06/24 11:12 Pulse Ox 100 01/06/24 11:12 Oxygen Delivery Method Room Air 01/06/24 11:12 BMI result Body Mass Index 31.7 Const General: comfortable and no acute distress Orientation/consciousness: patient oriented x3 HEENT Head: Yes normocephalic Mouth: Normal oral and palatal mucosa present Eyes EOM: EOMs intact bilaterally Neck Neck: Yes supple Resp Auscultation: clear to auscultation bilaterally Cardio Jugular venous distension: no JVD Rate: regular rate GI Palpation (GI): Soft to palpation Auscultation: normal bowel sounds General: Yes no CVA tenderness Back/Spine/Pelvis Back: no CVA tenderness Skin General skin exam: no rashes or lesions noted Neuro General: patient oriented x3 and moves all extremities Extrem Left upper extremity: edema Results Reviewed Nephrology Results: Hgb 12.8 g/dl (12.0-16.0) 12/08/23 WBC 8.3 X10*3/uL (4.8-10.8) 12/08/23 Plt Count 225 X10*3/uL (160-400) 12/08/23 Sodium 142 mmol/L (135-145) 12/09/23 Potassium 4.3 mmol/L (3.3-5.1) 12/09/23 Chloride 109 mmol/L (96-108) H 12/09/23 Carbon Dioxide 24 mmol/L (22-29) 12/09/23 BUN 20 mg/dL (9-16) H 12/09/23 Creatinine 0.87 mg/dL (0.5-1.4) 12/09/23 Calcium 9.6 mg/dL (8.4-10.2) 12/09/23 Urine Protein 300 (3+) mg/dL (Neg-Trace) H 12/09/23 Urine Creatinine 60.32 mg/dL 12/09/23 Protein/Creatinin Ratio 3.75 (<0.2) H 12/09/23 Renal US 12/23/23 Assessment & Plan Assessment & Plan (1) Diabetic nephropathy: Code(s): E11.21 - Type 2 diabetes mellitus with diabetic nephropathy Category: Medical Qualifiers: Diabetes mellitus type: type 2 Qualified Code(s): E11.21 - Type 2 diabetes mellitus with diabetic nephropathy (2) Hypertension: Code(s): I10 - Essential (primary) hypertension Category: Medical Qualifiers: Hypertension type: primary hypertension Qualified Code(s): I10 - Essential (primary) hypertension (3) Proteinuria: Code(s): R80.9 - Proteinuria, unspecified Category: Medical Qualifiers: Proteinuria type: other Qualified Code(s): R80.8 - Other proteinuria Plan Caitlyn has diabetic nephropathy. She has diabetes over 30 years. She has atherosclerotic peripheral arterial disease. USS showed no hemodynamically significant right renal artery stenosis. Duplex findings are consistent with less than 60% left renal artery stenosis. There was a 2 mm nonobstructing left renal calculus is seen. No right renal calculus is seen. No hydronephrosis is noted bilaterally. I increased her lisinopril to 5 mg and reduced her Amlodipine to 5 mg which I plan to D/C after maximizing ACEI. She may need a renal biopsy. Her renal functions are stable. She is on SGLT2 inhibitor . Her edema can be multifactorial due to vascular disease, amlodipine and proteinuria. She likely will need Chlorthalidone. She needs to drop some weight and cut back sodium in the diet. She needs to maintain good hydration. She should avoid nonsteroidal anti-inflammatories. I did not make any other medication changes today. All questions answered. Follow-up appointment given. Orders: Orders Creatinine Today E11.21 - Type 2 diabetes mellitus with diabetic nephropathy, I10 - Essential (primary) hypertension Blood Urea Nitrogen Today E11.21 - Type 2 diabetes mellitus with diabetic nephropathy, I10 - Essential (primary) hypertension Protein Creatinine Ratio, Ur Today E11.21 - Type 2 diabetes mellitus with diabetic nephropathy, I10 - Essential (primary) hypertension Phospholipase A2 Receptor Pnl Today R80.8 - Other proteinuria Immunofixation Pnl, Serum Today E11.21 - Type 2 diabetes mellitus with diabetic nephropathy, I10 - Essential (primary) hypertension Immunofixation, Random Urine Today E11.21 - Type 2 diabetes mellitus with diabetic nephropathy, I10 - Essential (primary) hypertension Electrolytes Today E11.21 - Type 2 diabetes mellitus with diabetic nephropathy, I10 - Essential (primary) hypertension Anti DNA DS Antibody Today R80.8 - Other proteinuria Medications: Changed From amlodipine 10 mg PO DAILY 90 days 90 tabs 0RF To amlodipine 10 mg (2 x 5 mg) PO DAILY 30 days 60 tabs 2RF From lisinopril 2.5 mg PO DAILY 90 tabs 0RF To lisinopril 5 mg PO DAILY 30 tabs 3RF Coding Level of Care Code Est Pt Level 4 (28290) Diagnoses Diabetic nephropathy associated with type 2 diabetes mellitus E11.21 Diabetes mellitus type: type 2 Primary hypertension I10 Hypertension type: primary hypertension Other proteinuria R80.8 Proteinuria type: other
== END 2024-01-06 11:38 | disposition home or self-care (01) ==
PROVIDERS: PCP Nurse Practitioner Family; Visit Provider Internal Medicine Nephrology
DX: E11.21 Type 2 diabetes mellitus with diabetic nephropathy (principal); I10 Essential (primary) hypertension; R80.8 Other proteinuria
CPT/HCPCS: 99214

== ENCOUNTER → 2024-01-06 10:59 | Outpatient (BNVA) | payer OTHER, SELFPAY | PROVIDERS: PCP Nurse Practitioner Family; Visit Provider Internal Medicine Nephrology ==

== ENCOUNTER 2024-02-02 12:53 | Outpatient (AMB) | payer OTHER, SELFPAY ==
[2024-02-02 13:05] VITALS: BP 140/62; PULSE 74; O2SAT 99; BMI 30.6
--- NOTE | 2024-02-02 13:05 | A.OFFPC_ITS ---
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: No Allergies meperidine [Demerol] Allergy (Intermediate, Verified 02/02/24 13:31) vomiting albuterol Allergy (Mild, Verified 02/02/24 13:31) Facial flushing erythromycin base [Erythromycin Base] Allergy (Mild, Verified 02/02/24 13:31) DIFFICULTY BREATHING metoclopramide [Reglan] Allergy (Unknown, Verified 02/02/24 13:31) Unknown empagliflozin [From Jardiance] Adverse Reaction (Intermediate, Verified 02/02/24 13:55) Headache Medication List - Last Reconciled 02/02/24 by KAMAR Zarate- alpha lipoic acid 600 mg PO DAILY amlodipine 10 mg (2 x 5 mg) PO DAILY aspirin 1 tab PO DAILY bisacodyl (Dulcolax (bisacodyl)) 20 mg (4 x 5 mg) PO ONCE 1 day blood sugar diagnostic (FreeStyle Lite Strips) test blood sugar 3 times per day blood-glucose meter (FreeStyle Lite Meter kit) As directed cholecalciferol (vitamin D3) 125 mcg PO DAILY clonidine HCl 0.1 mg PO BEDTIME FreeStyle Sarah 2 [place] (flash glucose scanning reader) tid testing NS FreeStyle Sarah 2 Sensor (flash glucose sensor) tid testing NS insulin glargine (Lantus Solostar U-100 Insulin) 80 units (0.8 mL) subcut DAILY lancets (FreeStyle Lancets) test 3 times per day lisinopril 5 mg PO DAILY methylsulfonylmethane (MSM) 1,000 mg PO DAILY nystatin 1 appl topical BID PRN omega-3 acid ethyl esters 1 cap PO BID 90 days pen needle, diabetic (BD Ultra-Fine Rimma Pen Needle) daily use diabetes polyethylene glycol 3350 (Miralax) 238 grams PO ONCE rosuvastatin 40 mg PO DAILY 90 days Tobacco use date assessed: 10/07/23 Fall risk assessment: No Falls in past year Last assessed Fall Risk: 02/02/24 Dental Screening Dental Screen Date: 10/07/23 HPI 4 month follow up HPI0 Details Pt is a diabetic, on an SHAUNA and a statin. A1C in office today is 9.1. Microalbumin is up to date. Denies polyuria, polydipsia, and does have neuropath y. Pt denies any signs and symptoms of hypoglycemia and does know how to correct it. Pt reports that she stopped taking jardiance because it caused headache and nausea. Pt follows up with nephrology, cardiology, and GI. Added a GLP-1 agonist, will see how pt tolerates the med [facility] Medical History (Updated 02/02/24 @ 13:24 by JUN Zarate) Tubular adenoma of colon Fibromyalgia Vertigo Osteoarthritis HTN (hypertension) Diabetes Chronic renal insufficiency ASCVD (arteriosclerotic cardiovascular disease) CHF (congestive heart failure) Stroke PAD (peripheral artery disease) Surgical History Hx of cataract H/O colonoscopy Family History Mother Diabetes Father Lung cancer Social History Housing: House Patient Tobacco Use Status: Current everyday Tobacco user Tobacco use type: Cigarette Cigarette Packs Per Day: 1 Cigarettes Per Day: 1 e-Cigarette/Vaping Use: Never Used Second Hand Smoke Exposure: No service: No Current occupational status: employed Current occupation: [employer] Current occupational exposures/hazards: No Cognitive needs: No Hearing needs: No Vision needs: No Questionnaire Thrive Questionnaire Date Thrive assessed: 02/27/22 JENNA-7 AMB Questionnaire JENNA-7 Date JENNA - 7 assessed: 02/27/22 Source: Developed by Drs. Abdoulaye Wu, Tracey Santos, Tee Baker and colleagues, with an educational mamadou from [employer]. Review of Systems Const Reports as per HPI Physical exam (Primary Care) Vital Signs: Last Vital Signs Pulse 74 02/02/24 13:05 BP 130/62 02/02/24 13:58 Pulse Ox 99 02/02/24 13:05 BMI result Body Mass Index 30.6 Tobacco/Smoking Status: Tobacco use Status Tobacco use date assessed 10/07/23 02/02/24 13:07 Patient Tobacco Use Status Current everyday Tobacco 02/02/24 13:07 Tobacco use type Cigarette 02/02/24 13:07 e-Cigarette/Vaping Use Never Used 02/02/24 13:07 Thrive Assessment: Date of Thrive Assessment Date Thrive assessed 02/27/22 02/02/24 13:07 Const General: cooperative Orientation/consciousness: patient oriented x3 Resp Auscultation: clear to auscultation bilaterally Cardio Rate: regular rate Rhythm: regular rhythm Heart sounds: S1 normal heart sound present and S2 normal heart sound present Neuro General: patient oriented x3 Extrem Other: bilat feet: minimal sensation with use of monofilament, right dorsal foot with healing scabbed lesions Psych Appearance: grossly normal Mental Status: mental status grossly normal Speech and movement: Normal speech and movement present Affect: normal affect Attitude: cooperative Thought process: Normal thought process present Thought content: Normal thought content present Insight: Good insight present (Psych) Judgement: Good judgement present (Psych) Assessment and Plan Assessment & Plan (1) Diabetes: Code(s): E11.9 - Type 2 diabetes mellitus without complications Plan: Labs ordered Plan The patient agreed to the use of a medical coding auditor for this encounter. Scribed for JUN Kumar by Leni Michaels medical coding auditor, on 02/02/2024 at 13:25 EST. Orders: Orders Complete Blood Count Auto Diff Today E11.9 - Type 2 diabetes mellitus without complications UA CC w/rflx Micro + Cult Today E11.9 - Type 2 diabetes mellitus without complications Comprehensive [place]. Panel Fast Today E11.9 - Type 2 diabetes mellitus without complications TSH reflex Free T4 Today E11.9 - Type 2 diabetes mellitus without complications Lipid Panel Today E11.9 - Type 2 diabetes mellitus without complications Microalbumin, Random (w Creat) Today E11.9 - Type 2 diabetes mellitus without complications AMB Hemoglobin A1c Today E11.9 - Type 2 diabetes mellitus without complications Medications: New semaglutide (Ozempic) for 4 weeks 0.25 mg (0.368 mL) subcut QWEEK 3 mL 2RF Coding Level of Care Code Est Pt Level 3 (05175) Diagnoses Diabetes E11.9
[2024-02-02 13:58] VITALS: BP 130/62
== END 2024-02-02 14:06 | disposition home or self-care (01) ==
PROVIDERS: PCP Nurse Practitioner Family; Visit Provider Nurse Practitioner Family
DX: E11.9 Type 2 diabetes mellitus without complications (principal)
CPT/HCPCS: 83036; 99213

== ENCOUNTER 2024-02-05 09:54 | Day surgery (SDC) | payer OTHER, SELFPAY ==
--- NOTE | 2024-02-03 13:29 | HO.ANESPROP2 ---
Documented by User: Mary Rain NP 02/03/24 13:32 HPI - Anesthesia Eval Consult details Narrative: 63yo F for Colonoscopy with APC s/p same 11/2023 and 12/2023 with TIVA. Cardiac cleared prior. Anesthesia Pre-Procedure Meds Is the patient on any of the following meds?: GLP1/DPP4 PMFSH Active Problems Active Problems: All Active Problems Diabetes (Acute) Tubular adenoma of colon (Acute) CKD stage 3 due to type 2 diabetes mellitus (Acute) Diabetic nephropathy (Acute) Proteinuria (Acute) Microalbuminuria (Acute) Right bundle branch block (Acute) Spondylosis of lumbar region without myelopathy or radiculopathy (Acute) Osteoarthritis of left knee (Acute) Left knee pain (Acute) Hyperlipidemia (Acute) Pre-op evaluation (Acute) Palpitations (Acute) Hypertension (Acute) Vertigo (Acute) Fibromyalgia (Acute) Vitamin D deficiency (Acute) Diabetic arthropathy (Acute) Diabetic neuropathy (Acute) Peripheral vascular disease (Acute) Physical exam (Acute) Screening for colon cancer (Acute) Diabetes (Acute) Left foot pain (Acute) Lumbar back pain (Acute) Left foot pain (Acute) Cough (Acute) Viral conjunctivitis of right eye (Acute) Tracheobronchitis (Acute) ASCVD (arteriosclerotic cardiovascular disease) (Acute) CHF (congestive heart failure) (Acute) Past Medical History Medical History Tubular adenoma of colon Fibromyalgia Vertigo Osteoarthritis HTN (hypertension) Diabetes Chronic renal insufficiency ASCVD (arteriosclerotic cardiovascular disease) CHF (congestive heart failure) Stroke PAD (peripheral artery disease) Family History Family History Mother Diabetes Father Lung cancer Family history of problems with anesthesia: No Surgical History Surgical History Hx of cataract H/O colonoscopy History of Problems with Anesthesia: No Social History Social History Housing: House Patient Tobacco Use Status: Current everyday Tobacco user Tobacco use type: Cigarette Cigarette Packs Per Day: 1 Cigarettes Per Day: 20.0 Years Smoked: 50 Smoked in Last 30 Days: Yes e-Cigarette/Vaping Use: Never Used Second Hand Smoke Exposure: No Use of substances other than those prescribed or required for medical reasons: No Are you DNR?: No Advance Directives: No Advance Directives Information Provided: Yes service: No Current occupational status: employed Current occupation: [employer] Current occupational exposures/hazards: No Cognitive needs: No Hearing needs: No Vision needs: No Meds Allergies Allergy/AdvReac Type Severity Reaction Status Date / Time meperidine [Demerol] Allergy Intermediate vomiting Verified 02/05/24 11:17 albuterol Allergy Mild Facial Verified 02/05/24 11:17 flushing erythromycin base Allergy Mild DIFFICULTY Verified 02/05/24 11:17 [Erythromycin Base] BREATHING metoclopramide [Reglan] Allergy Unknown Unknown Verified 02/05/24 11:17 empagliflozin AdvReac Intermediate Headache Verified 02/05/24 11:17 [From Jardiance] Home Medications ?Medication ?Instructions ?Recorded ?Confirmed ?Last Taken ?Type aspirin 81 mg chewable tablet 1 tab PO DAILY 12/19/21 02/05/24 02/01/24 History cholecalciferol (vitamin D3) 125 125 mcg PO DAILY 02/27/22 02/05/24 Unknown History mcg (5,000 unit) tablet alpha lipoic acid 600 mg capsule 600 mg PO DAILY 12/08/23 02/05/24 Unknown History methylsulfonylmethane 1,000 mg 1,000 mg PO DAILY 12/08/23 02/05/24 Unknown History capsule (MSM) nystatin 100,000 unit/gram topical 1 appl topical BID PRN Rash 12/16/23 02/05/24 Unknown History powder Exam Pertinent Lab Results Pertinent Lab Results: Laboratory Tests 12/08/23 12/09/23 10:35 10:09 WBC 8.3 Hgb 12.8 Hct 39.3 Plt Count 225 Sodium 142 Potassium 4.3 Chloride 109 H Carbon Dioxide 24 BUN 20 H Creatinine 0.87 Narrative Narrative: EKG 09/2023 Normal Sinus Rhythm with Right Bundle Branch Block. Rate 76 bpm. QRS 138 ms. QTc 483ms. ECHO 11/2023 Conclusions: - The left ventricular systolic function is normal. The calculated ejection fraction is 69% by biplane method. - No obvious valvular pathology seen on this study. - Moderate plaque is seen in the arch. NM kirstin perf SPECT rest & str 11/2023 Impression: 1. Myocardial perfusion imaging study shows likely normal myocardial perfusion 2. Gated LVEF is 54% 3. Transient ischemic dilatation not present EKG is nondiagnostic for ischemia Assessment and Plan Assessment Anesthesia Assessment: Chart Reviewed Final Anesthetic Review Family History of Problems with Anesthesia: No History of Problems with Anesthesia: No Documented by User: Marnie Richmond MD 02/05/24 12:14 PMF Past Medical History Medical History Tubular adenoma of colon Fibromyalgia Vertigo Osteoarthritis HTN (hypertension) Diabetes Chronic renal insufficiency ASCVD (arteriosclerotic cardiovascular disease) CHF (congestive heart failure) Stroke PAD (peripheral artery disease) Family History Family History Mother Diabetes Father Lung cancer Surgical History Surgical History Hx of cataract H/O colonoscopy Social History Social History Housing: House Patient Tobacco Use Status: Current everyday Tobacco user Tobacco use type: Cigarette Cigarette Packs Per Day: 1 Cigarettes Per Day: 20.0 Years Smoked: 50 Smoked in Last 30 Days: Yes e-Cigarette/Vaping Use: Never Used Second Hand Smoke Exposure: No Use of substances other than those prescribed or required for medical reasons: No Are you DNR?: No Advance Directives: No Advance Directives Information Provided: Yes service: No Current occupational status: employed Current occupation: [employer] Current occupational exposures/hazards: No Cognitive needs: No Hearing needs: No Vision needs: No Meds Allergies Allergy/AdvReac Type Severity Reaction Status Date / Time meperidine [Demerol] Allergy Intermediate vomiting Verified 02/05/24 11:17 albuterol Allergy Mild Facial Verified 02/05/24 11:17 flushing erythromycin base Allergy Mild DIFFICULTY Verified 02/05/24 11:17 [Erythromycin Base] BREATHING metoclopramide [Reglan] Allergy Unknown Unknown Verified 02/05/24 11:17 empagliflozin AdvReac Intermediate Headache Verified 02/05/24 11:17 [From Jardiance] Home Medications ?Medication ?Instructions ?Recorded ?Confirmed ?Last Taken ?Type aspirin 81 mg chewable tablet 1 tab PO DAILY 12/19/21 02/05/24 02/01/24 History cholecalciferol (vitamin D3) 125 125 mcg PO DAILY 02/27/22 02/05/24 Unknown History mcg (5,000 unit) tablet alpha lipoic acid 600 mg capsule 600 mg PO DAILY 12/08/23 02/05/24 Unknown History methylsulfonylmethane 1,000 mg 1,000 mg PO DAILY 12/08/23 02/05/24 Unknown History capsule (MSM) nystatin 100,000 unit/gram topical 1 appl topical BID PRN Rash 12/16/23 02/05/24 Unknown History powder Exam Airway Mallampati Class: II TM Dist: >3cm Neck ROM: Full Denture: Upper Loose/Missing/Broken Teeth: Yes and Upper Heart: RRR Lungs: CTA Assessment and Plan Assessment Anesthesia Assessment: Anesthesia Plan Discussed Final Anesthetic Review NPO: Yes ASA Class: III Final Preanesthetic Review: Meds/Allgs Chart Reviewed, Consent Obtained/Reviewed and Anes Risks/Benef Reviewed Patient Risk: Intermediate Procedure Risk: Low Anesthetic Plan Anesthetic Plan: MAC: Disposition: Standard PACU
[2024-02-05 10:57] VITALS: BP 151/70; PULSE 84; RESP 16; TEMP 36.3; O2SAT 100; BMI 30.6
[2024-02-05] MEDS: Lactated Ringers 1,000 ML 50 ML IVCONT (11:16)
--- NOTE | 2024-02-05 11:20 | PC.NURSE ---
Medication Ozempic currently in med list, patient has not started this medication yet. Anesthesia made aware.
[2024-02-05 11:28] LABS: Glucose, Whole Blood 189 mg/dL (60-115)
--- NOTE | 2024-02-05 12:08 | MHC.SHP ---
Pre-Procedural Eval Section A - 24 Hr Update-Section A only Date of Service: 02/05/24 Section B - Complete if H&P > 30 days Chief Complaint: Polyp of colon Relevant Family History (Specify if Yes): No Relevant Social History: Tobacco Use Present Medications: see Short Stay Collaborative assessment Medical History: Significant History (Tubular adenoma of colon Fibromyalgia Vertigo Osteoarthritis HTN (hypertension) Diabetes Chronic renal insufficiency ASCVD (arteriosclerotic cardiovascular disease) CHF (congestive heart failure) Stroke PAD (peripheral artery disease)) History of Previous Operations: Relevant previous surgery/procedure and date(s) (Hx of cataract H/O colonoscopy) Allergies: Allergies Allergy/AdvReac Type Severity Reaction Status Date / Time meperidine [Demerol] Allergy Intermediate vomiting Verified 02/05/24 11:17 albuterol Allergy Mild Facial Verified 02/05/24 11:17 flushing erythromycin base Allergy Mild DIFFICULTY Verified 02/05/24 11:17 [Erythromycin Base] BREATHING metoclopramide [Reglan] Allergy Unknown Unknown Verified 02/05/24 11:17 empagliflozin AdvReac Intermediate Headache Verified 02/05/24 11:17 [From Jardiance] Review of Systems Sugical H&P ROS: Negative: Constitution, Cardiovascular, Respiratory, Neurological, Psychiatric, Hem-Onc, Allergic/Immunologic, Gastrointestinal, Genitourinary, Musculoskeletal, Integumentary, Endocrine and Eyes/Ears/Nose/Throat Exam Surgical H&P Exam: Normal: HEENT, Normal: Heart, Normal: Lungs, Normal: Extremities, Normal: Abdomen, Normal: Skin and Normal: Neurological Plan Diagnosis/Plan: Unchanged I have reviewed the history and physical and performed a pertinent physical examination on my patient. No changes have occurred unless specified. Time Spent With Patient Time: Total time managing care of this patient today ____ minutes.
--- NOTE | 2024-02-05 13:26 | HO.OPN-COLON ---
Colonoscopy Operative Note Operative Note Date of Service: 02/05/24 Narrative: Operative Information Procedure Description: Colonoscopy Indication: hx of colon polyp Anesthesia: MAC COLONOSCOPY Instrument: Olympus variable stiffness pediatric scope 190L Colonoscopy Monitoring: Vital signs and clinical assessment, continuous EKG monitoring, Pulse oximetry, Carbon Dioxide monitoring and blood pressure monitoring were done throughout the procedure. Colon withdrawal time was 45 minutes. Procedure: The patient was placed in the left lateral decubitis position and pre-procedure medications were administered. After a digital rectal examination of the ano-rectum, the video colonoscope was inserted into the rectum and advanced through the colon to the cecum/TI. The colonoscope was slowly withdrawn in a retrograde panoramic fashion and the colon mucosa was carefully examined including a retroflexed view of the rectum. Findings and interventions are described below. Procedure Difficulty: difficult, initially I used a distal attachement but this actually impeded the navigation so removed Findings: Terminal Ileum-not intubated Cecum:no residual tissue noted from previous excised lesion but a small adenomatous area over the appediceal orifice about 4-6 mm noted, lifted with erbe jet and removed gently using biopsy forceps Ascending Colon: x2 sessile polyps 6-9 mm removed with cold snare Transverse Colon - x 2 sessile polyps 7-9 mm removed with cold snare Descending Colon: 10 mm sessile polyp removed with cold snare Sigmoid Colon: normal Rectum: Retroflexion with small internal hemorrhoids seen, grade I Anorectum - normal Intervention: erbe jet and lift, cold snare, biopsy forceps Colon preparation: [place] Bowel Preparation Scale Right colon; 2 Transverse colon: 2 Left colon; 2 (0 = Unprepared colon segment with mucosa not seen due to solid stool that cannot be cleared. 1 = Portion of mucosa of the colon segment seen, but other areas of the colon segment not well seen due to staining, residual stool and/or opaque liquid. 2 = Minor amount of residual staining, small fragments of stool and/or opaque liquid, but mucosa of colon segment seen well. 3 = Entire mucosa of colon segment seen well with no residual staining, small fragments of stool or opaque liquid) Impression and Post Procedure Diagnosis: colon polyps internal hemorrhoids Plan: High fiber diet leaflet Avoid straining at stool, epsom salts and sitz bath, anusol supps or cream Repeat Colonoscopy in 6 months or earlier if clinically indicated Above findings were reviewed with the patient and relevant handouts were provided if indicated.
[2024-02-05 13:34] VITALS: BP 138/66; PULSE 67; RESP 18; TEMP 36.4; O2SAT 100
[2024-02-05 13:49] VITALS: BP 142/76; PULSE 73; RESP 18; O2SAT 100
[2024-02-05 14:04] VITALS: BP 169/71; PULSE 80; RESP 16; O2SAT 99
[2024-02-05 14:19] VITALS: BP 113/92; PULSE 72; RESP 16; TEMP 36.4; O2SAT 100
== END 2024-02-05 14:40 | disposition home or self-care (01) ==
PROVIDERS: PCP Nurse Practitioner Family; Visit Provider Internal Medicine Gastroenterology
PROC: (CPT 45385; principal; 2024-02-05 12:40)
DX: D12.2 Benign neoplasm of ascending colon (principal); D12.3 Benign neoplasm of transverse colon; K63.5 Polyp of colon; K64.0 First degree hemorrhoids; I12.9 Hypertensive chronic kidney disease with stage 1 through stage 4 chronic kidney disease, or unspecified chronic kidney disease; E11.22 Type 2 diabetes mellitus with diabetic chronic kidney disease; N18.9 Chronic kidney disease, unspecified; Z88.5 Allergy status to narcotic agent; Z88.8 Allergy status to other drugs, medicaments and biological substances
CPT/HCPCS: 45385; 45380; 45381; 82947; 88305; J2704; Q9968

== ENCOUNTER → 2024-02-05 09:54 | Outpatient (BNV) | payer OTHER, SELFPAY | PROVIDERS: PCP Nurse Practitioner Family; Visit Provider Internal Medicine Gastroenterology | DX: Z12.11 Encounter for screening for malignant neoplasm of colon (principal); Z86.010 Personal history of colon polyps; K63.5 Polyp of colon; K64.0 First degree hemorrhoids | CPT/HCPCS: 45380; 45381; 45385 ==

== ENCOUNTER 2024-02-16 15:35 | Outpatient (REF) | payer OTHER, SELFPAY ==
[2024-02-16 16:41] LABS: Anion Gap 11 (12-20); Blood Urea Nitrogen 22 mg/dL (9-16); Carbon Dioxide 27 mmol/L (22-29); Chloride 108 mmol/L (96-108); Estimated Glomerular Filt Rate > 60; Potassium 4.1 mmol/L (3.3-5.1); Sodium 142 mmol/L (135-145)
[2024-02-16 17:21] LABS: Appearance Urine Cloudy; Color Urine Yellow; Glucose Urine UA Negative (Negative); Leukocyte Esterase Urine Moderate (2+) (Negative); Nitrite Urine Negative (Negative); PH 5.5 (5.0-9.0); UMIC TRIGGER UA YES; Urine Blood Trace (Negative); Urine Ketones Negative (Negative); Urine Protein 300 (3+) mg/dL (Neg-Trace)
[2024-02-16 18:23] LABS: Bacteria Urine 3+ (None Seen); RBC Urine 0-2 /HPF (0-2); WBC Urine >50 /HPF (0-5)
[2024-02-16 19:34] LABS: Creatinine Urine 101.73 mg/dL
[2024-02-16 19:51] LABS: Protein/Creatinine Ratio, Ur 2.17 (<0.2); Total Protein Urine Random 221 mg/dL (<12)
[2024-02-19 15:13] LABS: IgA 107 mg/dL (70-320); IgG 903 mg/dL (600-1540); IgM 136 mg/dL (50-300)
[2024-02-24 08:58] LABS: Anti DNA DS Antibody 2 IU/mL
[2024-02-24 17:03] LABS: Phospholipase A2 IgG ELISA <4 RU/mL; Phospholipase A2 IgG IFA NEGATIVE (NEGATIVE)
== END 2024-02-16 15:36 | disposition home or self-care (01) ==
LOC: HO.LAB 15:35
PROVIDERS: PCP Nurse Practitioner Family; Visit Provider Internal Medicine Nephrology
DX: E11.21 Type 2 diabetes mellitus with diabetic nephropathy (principal); I10 Essential (primary) hypertension; R80.8 Other proteinuria
CPT/HCPCS: 80051; 81001; 82565; 82570; 82784; 83520; 84156; 84520; 86225; 86255; 86334; 86335

== ENCOUNTER 2024-02-23 08:52 | Outpatient (REF) | payer OTHER, SELFPAY | END 2024-02-23 08:53 | disposition home or self-care (01) | LOC: HO.MAMMO 08:52 | PROVIDERS: PCP Nurse Practitioner Family; Visit Provider Nurse Practitioner Family | DX: Z12.31 Encounter for screening mammogram for malignant neoplasm of breast (principal) | CPT/HCPCS: 77063; 77067 ==

== ENCOUNTER → 2024-02-23 09:00 | Outpatient (BNV) | payer OTHER, SELFPAY | PROVIDERS: PCP Nurse Practitioner Family; Visit Provider Radiology Diagnostic Radiology | DX: Z12.31 Encounter for screening mammogram for malignant neoplasm of breast (principal) | CPT/HCPCS: 77063; 77067 ==

== ENCOUNTER 2024-03-02 08:48 | Outpatient (REF) | payer OTHER, SELFPAY ==
--- NOTE | ~2024-03-02 | CT_ITS ---
EXAMINATION: CT ABDOMEN AND PELVIS WITH CONTRAST CLINICAL INFORMATION: Abdominal pain. COMPARISON: Renal ultrasound study of 12/23/2023. TECHNIQUE: Multidetector volumetric images were obtained from the superior aspect of the liver through the pubic symphysis following administration 85 mL of Omnipaque 350 intravenous contrast. Sagittal and coronal reformatted images were obtained on the technologist's workstation. Oral contrast: Yes. This CT examination was performed using dose optimization techniques as appropriate, variously including the following: *Automated exposure control *Adjustment of mA and/or kV according to patient size (this includes techniques or standardized protocols for targeted exams where dose is matched to indication/reason for exam; i.e. extremities or head) *Use of iterative reconstruction technique DLP: 708 mGy-cm FINDINGS: There is some artifact related to arms being by patient's side. LUNG BASES: Heart normal size. Coronary artery calcification present. No pericardial effusion. No pleural effusion. LIVER, GALLBLADDER, AND BILIARY TREE: The liver is normal in size, shape, and attenuation. No focal hepatic lesion or biliary ductal dilatation is present. Status post cholecystectomy. PANCREAS: Unremarkable. No abnormal mass or peripancreatic inflammatory change. SPLEEN: Unremarkable. ADRENAL GLANDS: Unremarkable. KIDNEYS AND URETERS: Right Kidney: There is a lobular contour to the kidney. There is a region of diminished density involving the cortex and medullary region measuring approximately 3.7 x 2.4 x 2.8 cm in size. No region of associated gas or hydronephrosis is present. No obstructing calculi. This is in the location of streak artifact which may be causing some of this appearance. Since this finding was not present on prior renal ultrasound of December of this year, it would be unlikely that this would represent a neoplasm. There is a 3 mm upper pole nonobstructing calculus as well as mid and lower pole 2 mm nonobstructing calculi. It is difficult to tell whether these may be vascular in nature. This may be related to pyelonephrosis. There is a 1.2 cm lower pole cyst. This cyst does not require followup. No hydroureter. Left Kidney: No hydronephrosis. No hydroureter. Multiple calcifications which are nonobstructive are present, the majority appear to be vascular in nature. There is a 3 mm interpolar nonobstructing calculus which lies approximately 8 cm from the posterior axillary line. There are multiple small cysts which do not require followup. BLADDER: Unremarkable. GASTROINTESTINAL TRACT: No dilated loops of large or small bowel seen. No free air or free fluid is noted. No evidence of acute diverticulitis. No pericolonic inflammatory change. The appendix is visualized and appears unremarkable. ABDOMINAL WALL: No significant hernia is appreciated. LYMPH NODES: No lymphadenopathy identified. VASCULAR: There is moderate aortoiliac calcified plaque present with a large amount of superior mesenteric artery plaque and degree of stenosis I cannot determine on this study; however, there appear to be some regions of greater than 50% luminal narrowing. The celiac artery appears widely patent. The inferior mesenteric artery has a large amount of calcified plaque present. No abdominal aortic aneurysm. PELVIC VISCERA: Unremarkable. OSSEOUS STRUCTURES: No suspicious destructive bony lesions identified. There is scoliosis present convex right about the abdomen with multilevel degenerative disc disease as well as bony ankylosis and prominent spurs. There is significant facet arthropathy seen bilaterally at L4-L5 and L5-S1. CT/CT abdomen pelvis w IV con IMPRESSION: Limitations related to artifact from patient's arms being down by her side causing streak artifact to involve the dorsal aspect of the body. No evidence of bowel ileus or obstruction. No evidence of obstructive uropathy. Question region of diminished density upper pole of the right kidney which could be related to pyelonephritis or possible artifact, and renal ultrasound would be of help in further evaluation of this finding. Vascular calcified plaque, as described, without definite radiographic evidence of bowel ischemia. Fleischner guidelines were followed.
[2024-03-02] MEDS: Barium Sulfate Oral (Berry) 450 ML ORAL.SUSP 900 ML PO (11:19)
[2024-03-02] MEDS: iohexoL 350 MG/ML 100 ML INFUS..BTL 85 ML IV (11:19)
== END 2024-03-02 08:49 | disposition home or self-care (01) ==
LOC: HO.CT 08:48
PROVIDERS: PCP Nurse Practitioner Family; Visit Provider Nurse Practitioner Family
DX: R10.9 Unspecified abdominal pain (principal)
CPT/HCPCS: 74177; Q9967

== ENCOUNTER 2024-03-23 12:08 | Outpatient (AMB) | payer OTHER, SELFPAY ==
[2024-03-23 12:21] VITALS: BP 156/74; PULSE 72; O2SAT 98; BMI 30.9
--- NOTE | 2024-03-23 12:21 | HO.NEPHOV_ITS ---
Vital Signs 03/23/24 12:21 Height 5 ft 5 in Weight 186 lb BMI 30.9 BP 156/74 H Blood Pressure Location Lt brachial Position Sitting Pulse 72 Pulse Source Pulse Oximeter Pulse Oximetry (%) 98 Oxygen Delivery Method Room Air Intake Visit Reasons: 2 mo fu w/ labs/ Conf [employer] Program Manager Required: No Accompanied by: Self / Same As Patient Allergies meperidine [Demerol] Allergy (Intermediate, Verified 03/23/24 12:23) vomiting albuterol Allergy (Mild, Verified 03/23/24 12:23) Facial flushing erythromycin base [Erythromycin Base] Allergy (Mild, Verified 03/23/24 12:23) DIFFICULTY BREATHING metoclopramide [Reglan] Allergy (Unknown, Verified 03/23/24 12:23) Unknown empagliflozin [From Jardiance] Adverse Reaction (Intermediate, Verified 03/23/24 12:23) Headache HPI Comments Details: I had the privilege of seeing Caitlyn in follow up for proteinuria. She has diabetes over 30 years. She has history of atherosclerotic peripheral arterial disease. She had stents put in in her left lower extremity. She has no history of hypoglycemia . She has no history of cancers. She denies coronary artery disease, CVA, congestive heart failure, carotid stenosis, renal artery stenosis. She is not taking any SHAUNA inhibitor or an ARB. She does not have any hypoglycemias. She denies epistaxis, photosensitivity, hemoptysis, hematemesis, melena, nausea, vomiting, diarrhea, new bone or back pain, nephrolithiasis, history of hypercalcemia. She claims to be compliant with her medications. She has been having edema ever since she has been taking amlodipine. She remains employed and feels well. She has history of hepatitis C which has been treated. She has history of drug use when she was young. She denies taking excessive nonsteroidal anti-inflammatories. [facility] Medical History (Updated 03/17/24 @ 15:58 by Yulia Escobedo PA-C) Stroke ASCVD (arteriosclerotic cardiovascular disease) CHF (congestive heart failure) PAD (peripheral artery disease) HTN (hypertension) Chronic renal insufficiency Diabetes Nicotine dependence, cigarettes, uncomplicated Tubular adenoma of colon Fibromyalgia Vertigo Osteoarthritis Surgical History Hx of cataract H/O colonoscopy Family History Mother Diabetes Father Lung cancer Social History Housing: House Patient Tobacco Use Status: Current everyday Tobacco user Tobacco use type: Cigarette Cigarette Packs Per Day: 1 Cigarettes Per Day: 20.0 Years Smoked: 50 e-Cigarette/Vaping Use: Never Used Second Hand Smoke Exposure: No service: No Current occupational status: employed Current occupation: [employer] Current occupational exposures/hazards: No Cognitive needs: No Hearing needs: No Vision needs: No Physical Exam Vital Signs: BMI result Body Mass Index 30.9 Const General: comfortable and no acute distress Orientation/consciousness: patient oriented x3 HEENT Head: Yes normocephalic Mouth: Normal oral and palatal mucosa present Eyes EOM: EOMs intact bilaterally Neck Neck: Yes supple Resp Auscultation: clear to auscultation bilaterally Cardio Jugular venous distension: no JVD Rate: regular rate GI Palpation (GI): Soft to palpation Auscultation: normal bowel sounds General: Yes no CVA tenderness Back/Spine/Pelvis Back: no CVA tenderness Skin General skin exam: no rashes or lesions noted Neuro General: patient oriented x3 and moves all extremities Extrem General: Yes no pedal edema Results Reviewed Nephrology Results: Sodium 142 mmol/L (135-145) 02/16/24 Potassium 4.1 mmol/L (3.3-5.1) 02/16/24 Chloride 108 mmol/L (96-108) 02/16/24 Carbon Dioxide 27 mmol/L (22-29) 02/16/24 BUN 22 mg/dL (9-16) H 02/16/24 Creatinine 0.83 mg/dL (0.5-1.4) 02/16/24 Urine Protein 300 (3+) mg/dL (Neg-Trace) H 02/16/24 Urine Creatinine 101.73 mg/dL 02/16/24 Protein/Creatinin Ratio 2.17 (<0.2) H 02/16/24 Assessment & Plan Assessment & Plan (1) CKD stage 3 due to type 2 diabetes mellitus: Code(s): E11.22 - Type 2 diabetes mellitus with diabetic chronic kidney disease; N18.30 - Chronic kidney disease, stage 3 unspecified Category: Medical (2) Diabetic nephropathy: Code(s): E11.21 - Type 2 diabetes mellitus with diabetic nephropathy Category: Medical Qualifiers: Diabetes mellitus type: type 2 Qualified Code(s): E11.21 - Type 2 diabetes mellitus with diabetic nephropathy (3) Hypertension: Code(s): I10 - Essential (primary) hypertension Category: Medical Qualifiers: Hypertension type: primary hypertension Qualified Code(s): I10 - Essential (primary) hypertension Abhinav Brady has diabetic nephropathy. She has diabetes over 30 years. She has atherosclerotic peripheral arterial disease. USS showed no hemodynamically significant right renal artery stenosis. Duplex findings are consistent with less than 60% left renal artery stenosis. There was a 2 mm nonobstructing left renal calculus is seen. No right renal calculus is seen. No hydronephrosis is noted bilaterally. I increased her lisinopril to 10 mg daily. I maximizing ACEI. I stopped her Amlodipine. She may need a renal biopsy. Her renal functions are stable. She is on SGLT2 inhibitor . Her edema can be multifactorial due to vascular disease, amlodipine and proteinuria. She likely will need Chlorthalidone. She needs to drop some weight and cut back sodium in the diet. She needs to maintain good hydration. She should avoid nonsteroidal anti- inflammatories. I did not make any other medication changes today. All questions answered. Follow-up appointment given Orders: Orders Creatinine Today E11.21 - Type 2 diabetes mellitus with diabetic nephropathy, E11.22 - Type 2 diabetes mellitus with diabetic chronic kidney disease, I10 - Essential (primary) hypertension, N18.30 - Chronic kidney disease, stage 3 unspecified Electrolytes Today E11.21 - Type 2 diabetes mellitus with diabetic nephropathy, E11.22 - Type 2 diabetes mellitus with diabetic chronic kidney disease, I10 - Essential (primary) hypertension, N18.30 - Chronic kidney disease, stage 3 unspecified Protein Creatinine Ratio, Ur Today E11.21 - Type 2 diabetes mellitus with diabetic nephropathy, E11.22 - Type 2 diabetes mellitus with diabetic chronic kidney disease, I10 - Essential (primary) hypertension, N18.30 - Chronic kidney disease, stage 3 unspecified Blood Urea Nitrogen Today E11.21 - Type 2 diabetes mellitus with diabetic nephropathy, E11.22 - Type 2 diabetes mellitus with diabetic chronic kidney disease, I10 - Essential (primary) hypertension, N18.30 - Chronic kidney disease, stage 3 unspecified Medications: Changed From lisinopril 5 mg PO DAILY 90 tabs 1RF To lisinopril 10 mg PO DAILY 30 days 30 tabs 5RF Coding Level of Care Code Est Pt Level 4 (69080) Diagnoses CKD stage 3 due to type 2 diabetes mellitus E11.22; N18.30 Diabetic nephropathy associated with type 2 diabetes mellitus E11.21 Diabetes mellitus type: type 2 Primary hypertension I10 Hypertension type: primary hypertension
== END 2024-03-23 12:35 | disposition home or self-care (01) ==
PROVIDERS: PCP Nurse Practitioner Family; Visit Provider Internal Medicine Nephrology
DX: E11.22 Type 2 diabetes mellitus with diabetic chronic kidney disease (principal); N18.30 Chronic kidney disease, stage 3 unspecified; E11.21 Type 2 diabetes mellitus with diabetic nephropathy; I10 Essential (primary) hypertension
CPT/HCPCS: 99214

== ENCOUNTER → 2024-03-23 12:08 | Outpatient (BNVA) | payer OTHER, SELFPAY | PROVIDERS: PCP Nurse Practitioner Family; Visit Provider Internal Medicine Nephrology ==

== ENCOUNTER 2024-04-15 10:44 | Outpatient (AMB) | payer OTHER, SELFPAY ==
--- NOTE | 2024-04-15 07:55 | A.OFFVIS_ITS ---
Intake Visit Reasons: Current Smoker Allergies meperidine [Demerol] Allergy (Intermediate, Verified 03/23/24 12:23) vomiting albuterol Allergy (Mild, Verified 03/23/24 12:23) Facial flushing erythromycin base [Erythromycin Base] Allergy (Mild, Verified 03/23/24 12:23) DIFFICULTY BREATHING metoclopramide [Reglan] Allergy (Unknown, Verified 03/23/24 12:23) Unknown empagliflozin [From Jardiance] Adverse Reaction (Intermediate, Verified 03/23/24 12:23) Headache HPI HPI Current Smoker: Details: Initial visit for this 63yo smoker with a 50PYH. Patient has been smoking since age 8 for 55 years at 1ppd. . Denies marijuana use. Denies second hand smoke exposure. Denies exposure to chemicals or substances like asbestos. . Reports family history of lung cancer. Father in his 70's. Denies personal history of cancers. Denies chest CT in last year. . Denies recent travel outside the [place]. Denies recent respiratory illness or recent hospitalization for respiratory issues. Denies testing positive for COVID. Admits receiving COVID Vaccine. . Denies fever, chills, new/worsening cough, hemoptysis, hoarseness or dysphagia. Denies significant chest pain, significant dyspnea or unintentional weight loss. Patient Lung Cancer Screening Questionnaire reviewed with patient by provider. . Shared Decision Making Completed. Patient meets criteria. Discussed in detail with patient, the risk vs benefit of LDCT screening. Patient consents to proceed with scan. Discussed smoking cessation. [facility] Medical History (Updated 04/15/24 @ 11:05 by Yulia Escobedo PA-C) Stroke ASCVD (arteriosclerotic cardiovascular disease) CHF (congestive heart failure) PAD (peripheral artery disease) HTN (hypertension) Chronic renal insufficiency Diabetes Nicotine dependence, cigarettes, uncomplicated Tubular adenoma of colon Fibromyalgia Vertigo Osteoarthritis Surgical History (Updated 04/15/24 @ 11:11 by Yulia Escobedo PA-C) History of colonoscopy History of cataract surgery Family History Mother Diabetes Father Lung cancer Social History (Updated 04/15/24 @ 11:05 by Yulia Escobedo PA-C) Housing: House Patient Tobacco Use Status: Current everyday Tobacco user Tobacco use type: Cigarette Cigarette Packs Per Day: 1 Cigarettes Per Day: 20.0 Years Smoked: (onset 8yo, 1ppd x 55yrs, 50PYH) e-Cigarette/Vaping Use: Never Used Second Hand Smoke Exposure: No service: No Current occupational status: employed Current occupation: [employer] Current occupational exposures/hazards: No Cognitive needs: No Hearing needs: No Vision needs: No Assessment & Plan Assessment & Plan (1) Nicotine dependence, cigarettes, uncomplicated: Comment: (onset 8yo, 1ppd x 55yrs, 50PYH, +fam hx lung ca dad) Code(s): F17.210 - Nicotine dependence, cigarettes, uncomplicated Category: Medical Plan: - SDM visit completed today in office. - Patient meets criteria for LDCT for lung cancer screening purposes and is asymptomatic. - Smoking cessation counseling offered. Patients can always call [phone]. - Will arrange for a LDCT scan of the chest for screening purposes at [facility]. - Risks, benefits, and alternatives were discussed in detail and the patient agrees to proceed. - Risks discussed include but are not limited to: radiation exposure, anxiety during testing and while awaiting results, false negatives, false positives and possibility of additional intervention such as further imaging or surgical procedures for benign disease. - Benefits are obviously detection of lung cancer at an early stage which can lead to improved outcomes. - Discussed the importance of screening program compliance with adherence to yearly LDCT scan as scheduled - or sooner interval scans for personalized screening regimen. - Discussed follow up plan. Our office will send a letter discussing results and if needed set up phone call and office visit based on CT findings. - Patient educated on results categorization and the management decisions for suspicious findings potentially found on the screening LDCT scan. Any patient with a Lung RADS score of 3 or 4 will be reviewed by a multidisciplinary team at [facility] to form a plan of action in regards to scan findings. - If further work up is warranted for a suspicious lung finding this will be followed by the Lung Cancer Screening program in conjunction with the Thoracic Surgery Department at [facility]. - A copy of the office note and LDCT will be sent to the patient's PCP - as well as documentation on any associated further plans of care. - Incidental findings on LDCT are the PCP's responsibility. These findings are indicated with an S finding on the LDCT Assessment. A note discussing the findings will be sent to the PCP who is then responsible for further management. - All questions answered.? Coding Level of Care Code Lung Cancer Screening [id number] Diagnoses Nicotine dependence, cigarettes, uncomplicated F17.210
== END 2024-04-15 11:04 | disposition home or self-care (01) ==
PROVIDERS: PCP Nurse Practitioner Family; Referring Provider Nurse Practitioner Family; Visit Provider Physician Assistant Medical
DX: F17.210 Nicotine dependence, cigarettes, uncomplicated (principal)
CPT/HCPCS: G0296

== ENCOUNTER 2024-04-15 11:06 | Outpatient (REF) | payer OTHER, SELFPAY ==
--- NOTE | ~2024-04-15 | CT_ITS ---
EXAMINATION: CT LOW-DOSE SCREENING CHEST WITHOUT CONTRAST CLINICAL INFORMATION: Nicotine dependence, cigarettes, uncomplicated. The patient is a current smoker with a 50 pack-year history of smoking. COMPARISON: X-ray chest October 25, 2019. TECHNIQUE: Multidetector volumetric CT imaging of the chest is performed on a Siemens SOMATOM Definition scanner without contrast using low dose technique. Additional 2D coronal and sagittal reformatted images and axial 3D maximum intensity projection (MIP) images are generated on the CT workstation. This CT examination was performed using dose optimization techniques as appropriate, variously including the following: *Automated exposure control. *Adjustment of mA and/or kV according to patient size (this includes techniques or standardized protocols for targeted exams where dose is matched to indication/reason for exam; i.e. extremities or head). *Use of iterative reconstruction technique. TOTAL EXAM DLP: 80 mGy-cm. CTDIvol: 2.51 mGy. FINDINGS: PULMONARY NODULES: No suspicious pulmonary nodules. LUNGS: Lungs bilaterally symmetrically expanded. No focal lung nodule or mass. No effusion or pneumothorax. Central airways patent. MEDIASTINUM: No mediastinal, hilar or axillary adenopathy or free fluid collection. CORONARY ARTERY CALCIFICATION: Marked. THYROID GLAND: Unremarkable to the extent seen. Some coarse calcifications are seen. CARDIOVASCULAR STRUCTURES: Aortic and heart size normal. No pericardial effusion. CHEST WALL/AXILLA: Unremarkable. UPPER ABDOMEN: Included portions of the solid organs in the upper abdomen unremarkable on noncontrast imaging. Status post cholecystectomy. OSSEOUS STRUCTURES: Moderate thoracic kyphosis with degenerative changes and fusion of the anterior longitudinal ligament. No suspicious focal findings. CT/CT lung screening IMPRESSION: No suspicious pulmonary nodules are seen. ASSESSMENT: 1. Lung-RADS Category 1: Negative. There are no nodules or there are definitely benign nodules. Incomplete coverage. 2. Lung-RADS Category S: Negative. There are no clinically significant or potentially clinically significant findings not related to the lungs requiring urgent additional evaluation. RECOMMENDATION: Continued routine annual low-dose CT lung screening in 1 year is recommended. An order for CT CHEST LOW DOSE CANCER SCREENING ([id number]) can be placed. Electronically signed by: Hilton Jauregui MD 05/24/2024 08:20 PM EDT
== END 2024-04-15 11:07 | disposition home or self-care (01) ==
LOC: HO.CT 11:06
PROVIDERS: Visit Provider Physician Assistant Medical
DX: Z12.2 Encounter for screening for malignant neoplasm of respiratory organs (principal); F17.210 Nicotine dependence, cigarettes, uncomplicated
CPT/HCPCS: 71271; G0296

== ENCOUNTER 2024-04-22 09:46 | Outpatient (AMB) | payer OTHER, SELFPAY ==
--- NOTE | 2024-04-22 09:53 | AM.OFFWIN_ITS ---
Intake Vital Signs 04/22/24 09:54 Height 5 ft 5 in Weight 185 lb BMI 30.8 BP 136/88 Blood Pressure Location Lt brachial Position Sitting Pulse 76 Pulse Source Pulse Oximeter Temp 98.3 F Temp Source Oral Pulse Oximetry (%) 98 Oxygen Delivery Method Room Air Intake Visit Reasons: EP- cold flu symptoms, eyes running, coughing Intake Note: pt c/o cold and flu symptoms. Started Thursday Patient Tobacco Use Status: Current everyday Tobacco user Allergies meperidine [Demerol] Allergy (Intermediate, Verified 04/22/24 09:54) vomiting albuterol Allergy (Mild, Verified 04/22/24 09:54) Facial flushing erythromycin base [Erythromycin Base] Allergy (Mild, Verified 04/22/24 09:54) DIFFICULTY BREATHING metoclopramide [Reglan] Allergy (Unknown, Verified 04/22/24 09:54) Unknown empagliflozin [From Jardiance] Adverse Reaction (Intermediate, Verified 04/22/24 09:54) Headache Do you need a note to return to daycare/school/sports/work: No HPI EP- cold flu symptoms, eyes running, coughing HPI Details 63 year old female patient presents to [facility] clinic today with report of cold/flu symptoms for the last 5-6 days. States she started to feel unwell after going to [employer] this weekend. Reports dry cough, fatigue, body aches. Denies any fever/chills or GI symptoms. Denies any shortness of breath. Has taken Motrin at home with minimal relief. [facility] Medical History Stroke ASCVD (arteriosclerotic cardiovascular disease) CHF (congestive heart failure) PAD (peripheral artery disease) HTN (hypertension) Chronic renal insufficiency Diabetes Nicotine dependence, cigarettes, uncomplicated Tubular adenoma of colon Fibromyalgia Vertigo Osteoarthritis Surgical History History of colonoscopy History of cataract surgery Family History Mother Diabetes Stroke Father Lung cancer Social History Housing: House Patient Tobacco Use Status: Current everyday Tobacco user Tobacco use type: Cigarette Cigarette Packs Per Day: 1 Cigarettes Per Day: 20.0 Years Smoked: (onset 8yo, 1ppd x 55yrs, 50PYH) e-Cigarette/Vaping Use: Never Used Second Hand Smoke Exposure: No service: No Current occupational status: employed Current occupation: [employer] Current occupational exposures/hazards: No Cognitive needs: No Hearing needs: No Vision needs: No Review of Systems Const All systems reviewed & are unremarkable except as noted in HPI and below Physical Exam Vital Signs: Last Vital Signs Temp 98.3 F 04/22/24 09:54 Pulse 76 04/22/24 09:54 BP 136/88 04/22/24 09:54 Pulse Ox 98 04/22/24 09:54 Oxygen Delivery Method Room Air 04/22/24 09:54 BMI result Body Mass Index 30.8 Const General: cooperative and ill appearing Nutritional Appearance: average body habitus HEENT Head: Yes normal to inspection Ears: hearing grossly normal bilaterally and TM's normal bilaterally General nose exam: Normal external nose present and Normal nasal mucous membranes and turbinates present Face and sinus: Yes normal facial exam Mouth: Normal oral and palatal mucosa present Throat: Yes posterior oropharynx normal Neck Neck: Yes no lymphadenopathy Resp Effort & Inspection: normal respiratory effort and able to speak in complete sentences Auscultation: clear to auscultation bilaterally Cardio Rate: regular rate Rhythm: regular rhythm Heart sounds: S1 normal heart sound present and S2 normal heart sound present Skin General skin exam: no rashes or lesions noted Extrem General: Yes capillary refill normal and Yes no clubbing, cyanosis or edema Psych Appearance: grossly normal Mental Status: mental status grossly normal Speech and movement: Normal speech and movement present Assessment & Plan Assessment & Plan (1) Acute upper respiratory infection: Code(s): J06.9 - Acute upper respiratory infection, unspecified Plan: Symptoms consistent with viral upper resp illness. Advised conservative treatment with rest, hydration, otc cold/flu medication, healthy food/fluid intake. I will start her on Benzonatate for her cough. We reviewed indications, use, possible s/e of this. Covid/Flu/RSV swab obtained and patient aware she will be notified of results once these are available. Work note provided. If she does not improve with time and treatment, she can return for further evaluation or go to the ED. She verbalizes understanding and agrees to plan. Orders: Orders SARS-CoV2/FLU/RSV Today J06.9 - Acute upper respiratory infection, unspecified Medications: New benzonatate 100 mg PO BID 7 days PRN 14 caps 0RF cough R05.9 - Cough, unspecified Coding Level of Care Code Est Pt Level 4 (83776) Diagnoses Acute upper respiratory infection J06.9
[2024-04-22 09:54] VITALS: BP 136/88; PULSE 76; TEMP 36.8; O2SAT 98; BMI 30.8
== END 2024-04-22 10:51 | disposition home or self-care (01) ==
PROVIDERS: PCP Nurse Practitioner Family; Visit Provider Nurse Practitioner Family
DX: J06.9 Acute upper respiratory infection, unspecified (principal)
CPT/HCPCS: 99214

== ENCOUNTER 2024-04-22 10:44 | Outpatient (REF) | payer OTHER, SELFPAY ==
[2024-04-22 13:16] LABS: MANUAL DIFF FLAG NO
[2024-04-22 13:42] LABS: Basophils Percent Auto 0.5 % (0-2); Eosinophils Absolute Auto 0.1 X10*3/uL (0.0-0.4); Hematocrit 40.6 % (37.0-47.0); Hemoglobin 12.7 g/dl (12.0-16.0); Imm Gran Abs Auto 0.04 X10*3/uL (0.00-0.03); Imm Gran Pct Auto 0.6 % (0.0-0.4); Lymphocytes Absolute Auto 2.4 X10*3/uL (1.2-4.9); Lymphocytes Percent Auto 37.2 % (20-40); Mean Corpuscular HGB Conc 31.3 g/dl (31.0-35.0); Mean Corpuscular Hemoglobin 22.3 pg (27.0-33.0); Mean Corpuscular Volume 71.2 fL (80.0-98.0); Mean Platelet Volume 10.8 fL (9.4-12.3); Monocytes Absolute Auto 0.8 X10*3/uL (0.1-1.2); Monocytes Percent Auto 12.5 % (2-11); Neutrophils Absolute Auto 3.1 x10*3/uL (2.0-8.3); Neutrophils Percent Auto 47.2 % (45-73); Platelet Count 206 X10*3/uL (160-400); Red Cell Distribution Width 14.6 % (11.0-16.0); White Blood Count 6.5 X10*3/uL (4.8-10.8)
[2024-04-22 13:57] LABS: Alanine Aminotransferase 19 U/L (0-31); Albumin Level 3.9 g/dL (3.5-5.0); Alkaline Phosphatase 64 U/L (39-117); Anion Gap 14 (12-20); Aspartate Amino Transferase 20 U/L (5-31); Bilirubin Total 0.4 mg/dL (0.0-1.0); Blood Urea Nitrogen 21 mg/dL (9-16); Calcium 9.4 mg/dL (8.4-10.2); Carbon Dioxide 22 mmol/L (22-29); Chloride 109 mmol/L (96-108); Cholesterol 114 mg/dL (<200); Estimated Glomerular Filt Rate 54; Glucose Fasting 210 mg/dL (60-99); HDL Cholesterol 36 mg/dL (>40); LDL Cholesterol Calculated 32 mg/dL (<100); Potassium 4.6 mmol/L (3.3-5.1); Sodium 140 mmol/L (135-145); Total Protein 7.1 g/dL (6.5-8.0); Triglycerides 233 mg/dL (<150)
[2024-04-22 14:08] LABS: Influenza A PCR NEGATIVE (Negative); Influenza B PCR NEGATIVE (Negative); Resp Syncy Virus RNA Qual PCR NEGATIVE (Negative); SARS COV2 PCR INHOUSE POSITIVE (Negative)
[2024-04-22 14:16] LABS: TSH reflex Free T4 0.75 uIU/mL (0.32-4.0)
== END 2024-04-22 10:45 | disposition home or self-care (01) ==
LOC: HO.HMGCLDS 10:44
PROVIDERS: Nurse Practitioner Family; PCP Nurse Practitioner Family; Visit Provider Nurse Practitioner Family
DX: J06.9 Acute upper respiratory infection, unspecified (principal); E11.9 Type 2 diabetes mellitus without complications
CPT/HCPCS: 0241U; 36415; 80053; 80061; 84443; 85025

== ENCOUNTER 2024-04-27 13:00 | Outpatient (REF) | payer OTHER, SELFPAY ==
[2024-04-27 17:28] LABS: Appearance Urine Clear; Color Urine Yellow; Glucose Urine UA 100 mg/dL (Negative); Leukocyte Esterase Urine Negative (Negative); Nitrite Urine Negative (Negative); Specific Gravity - Urine 1.015 (1.005-1.025); UMIC TRIGGER UACC YES; Urine Blood Negative (Negative); Urine Ketones Negative (Negative); Urine Protein 300 (3+) mg/dL (Neg-Trace)
[2024-04-27 17:41] LABS: Bacteria Urine None Seen (None Seen); Hyaline Casts Urine 0-2 /LPF (0-2); RBC Urine 0-2 /HPF (0-2); Squamous Epithelial Cell Urine 0-2 /HPF (0-2); WBC Urine 0-5 /HPF (0-5)
[2024-04-27 18:12] LABS: Creatinine Urine 73.79 mg/dL
[2024-04-27 18:20] LABS: Microalbum/Creatinine Ratio Ur 2050.4 ug/mg cr (<30)
== END 2024-04-27 13:01 | disposition home or self-care (01) ==
LOC: HO.HMGCLNP 13:00
PROVIDERS: PCP Nurse Practitioner Family; Visit Provider Nurse Practitioner Family
DX: E11.9 Type 2 diabetes mellitus without complications (principal)
CPT/HCPCS: 81001; 82043; 82570

== ENCOUNTER 2024-06-02 14:24 | Outpatient (AMB) | payer OTHER, SELFPAY ==
[2024-06-02 14:28] VITALS: BP 138/62; PULSE 78; BMI 31.3
--- NOTE | 2024-06-02 14:28 | MHC.OFFVIS ---
Vital Signs 06/02/24 14:28 Height 5 ft 5 in Weight 188 lb BMI 31.3 BP 138/62 Blood Pressure Location Lt brachial Position Sitting Pulse 78 Pulse Source Pulse Oximeter Intake Visit Reasons: r/s follow-up Allergies meperidine [Demerol] Allergy (Intermediate, Verified 04/22/24 09:54) vomiting albuterol Allergy (Mild, Verified 04/22/24 09:54) Facial flushing erythromycin base [Erythromycin Base] Allergy (Mild, Verified 04/22/24 09:54) DIFFICULTY BREATHING metoclopramide [Reglan] Allergy (Unknown, Verified 04/22/24 09:54) Unknown empagliflozin [From Jardiance] Adverse Reaction (Intermediate, Verified 04/22/24 09:54) Headache HPI Comments Details: 63-year-old female presents today for a follow-up. She reports she has been doing much better. She denies any chest pains, shortness of breath, swelling, palpitations, or orthopnea. She reports has been compliant with her medications and starting to become more active. She has been trying to adjust her diet to help control her blood glucose levels but has been hard due to this time of year being the anniversary of a few sad events and she maggi with eating. [facility] Medical History Stroke ASCVD (arteriosclerotic cardiovascular disease) CHF (congestive heart failure) PAD (peripheral artery disease) HTN (hypertension) Chronic renal insufficiency Diabetes Nicotine dependence, cigarettes, uncomplicated Tubular adenoma of colon Fibromyalgia Vertigo Osteoarthritis Surgical History History of colonoscopy History of cataract surgery Family History Mother Diabetes Stroke Father Lung cancer Social History Housing: House Patient Tobacco Use Status: Current everyday Tobacco user Tobacco use type: Cigarette Cigarette Packs Per Day: 1 Cigarettes Per Day: 20.0 Years Smoked: (onset 8yo, 1ppd x 55yrs, 50PYH) e-Cigarette/Vaping Use: Never Used Second Hand Smoke Exposure: No service: No Current occupational status: employed Current occupation: [employer] Current occupational exposures/hazards: No Cognitive needs: No Hearing needs: No Vision needs: No Review of Systems Const Denies weakness ENT Denies dizziness Card Denies chest pain, Denies chest pain with activity, Denies syncope, Denies rapid heart rate, Denies pedal edema, Denies edema, Denies leg edema, Denies lightheadedness, Denies palpitations, Denies dyspnea, Denies dyspnea on exertion and Denies orthopnea Resp Denies cough, Denies dyspnea and Denies dyspnea on exertion GI Denies hematochezia and Denies change in stool character Musc Denies abnormal gait, Denies muscle cramps, Denies muscle weakness, Denies numbness, Denies radiating pain into limb and Denies tingling Neuro Denies abnormal gait, Denies dizziness, Denies syncope, Denies numbness, Denies tingling and Denies weakness Endo Denies palpitations Physical Exam Vital Signs: Last Vital Signs Pulse 78 06/02/24 14:28 BP 138/62 06/02/24 14:28 BMI result Body Mass Index 31.3 Const General: healthy appearing and no acute distress Orientation/consciousness: patient oriented x3 Limitations: ambulation with walker HEENT Head: Yes normal to inspection Eyes General: appearance normal, both eyes and all related structures Neck Neck: Yes normal visual inspection Chest Chest palpation & inspection: normal inspection of the chest Resp Effort & Inspection: normal respiratory effort Auscultation: clear to auscultation bilaterally Cardio Jugular venous distension: no JVD Palpation: normal PMI Rate: regular rate Rhythm: regular rhythm Heart sounds: S1 normal heart sound present, S2 normal heart sound present, no click, no gallops, no murmurs and no rubs GI Inspection: Yes normal to inspection Palpation (GI): Soft to palpation Skin General skin exam: no rashes or lesions noted Neuro General: patient oriented x3 Extrem General: Yes normal to inspection Psych Appearance: grossly normal Assessment & Plan Assessment & Plan (1) ASCVD (arteriosclerotic cardiovascular disease): Comment: follows w/ HCS Code(s): I25.10 - Atherosclerotic heart disease of [place] coronary artery without angina pectoris Category: Medical (2) CHF (congestive heart failure): Code(s): I50.9 - Heart failure, unspecified Category: Medical (3) Hypertension: Code(s): I10 - Essential (primary) hypertension Category: Medical Qualifiers: Hypertension type: primary hypertension Qualified Code(s): I10 - Essential (primary) hypertension (4) Diabetes: Code(s): E11.9 - Type 2 diabetes mellitus without complications Category: Medical Plan Discussed in detail about heart healthy diet and the need for tight blood glucose control. Echocardiogram showed moderate plaque in the arch. On zetia and rosuvastatin - continue. Last LDL in April was 32. A1C in January was 9.1. Advised to work with PCP and possible therapist for depression Patient decline but understands it is an option. Blood pressure is within goal - on amlodipine. Strongly advised to quit smoking. Monitor weight and for swelling or shortness of breath. Coding Level of Care Code Est Pt Level 4 (66761) Diagnoses ASCVD (arteriosclerotic cardiovascular disease) I25.10 CHF (congestive heart failure) I50.9 Primary hypertension I10 Hypertension type: primary hypertension Diabetes E11.9
== END 2024-06-02 14:49 | disposition home or self-care (01) ==
PROVIDERS: PCP Nurse Practitioner Family; Visit Provider Nurse Practitioner
DX: I25.10 Atherosclerotic heart disease of native coronary artery without angina pectoris (principal); I50.9 Heart failure, unspecified; I10 Essential (primary) hypertension; E11.9 Type 2 diabetes mellitus without complications
CPT/HCPCS: 99214

== ENCOUNTER → 2024-06-02 14:24 | Outpatient (BNVA) | payer OTHER, SELFPAY | PROVIDERS: PCP Nurse Practitioner Family; Visit Provider Nurse Practitioner | DX: I25.10 Atherosclerotic heart disease of native coronary artery without angina pectoris (principal); I11.0 Hypertensive heart disease with heart failure; I50.9 Heart failure, unspecified; E11.9 Type 2 diabetes mellitus without complications; Z79.899 Other long term (current) drug therapy ==

== ENCOUNTER 2024-06-06 13:49 | Outpatient (AMB) | payer OTHER, SELFPAY ==
[2024-06-06 13:54] VITALS: BP 150/80; PULSE 83; O2SAT 97; BMI 31.7
--- NOTE | 2024-06-06 13:54 | HO.NEPHOV_ITS ---
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 She has diabetes over 30 years. She has history of atherosclerotic peripheral arterial disease. She had stents put in in her left lower extremity. She has no history of hypoglycemia . She has no history of cancers. She denies coronary artery disease, CVA, congestive heart failure, carotid stenosis, renal artery stenosis. She is not taking any SHAUNA inhibitor or an ARB. She does not have any hypoglycemias. She denies epistaxis, photosensitivity, hemoptysis, hematemesis, melena, nausea, vomiting, diarrhea, new bone or back pain, nephrolithiasis, history of hypercalcemia. She claims to be compliant with her medications. She has been having edema ever since she has been taking amlodipine. She remains employed and feels well. She has history of hepatitis C which has been treated. She has history of drug use when she was young. She denies taking excessive nonsteroidal anti-inflammatories. She had COVID couple of weeks ago. [facility] Medical History Stroke ASCVD (arteriosclerotic cardiovascular disease) CHF (congestive heart failure) PAD (peripheral artery disease) HTN (hypertension) Chronic renal insufficiency Diabetes Nicotine dependence, cigarettes, uncomplicated Tubular adenoma of colon Fibromyalgia Vertigo Osteoarthritis Surgical History History of colonoscopy History of cataract surgery Family History Mother Diabetes Stroke Father Lung cancer Social History Housing: House Patient Tobacco Use Status: Current everyday Tobacco user Tobacco use type: Cigarette Cigarette Packs Per Day: 1 Cigarettes Per Day: 20.0 Years Smoked: (onset 8yo, 1ppd x 55yrs, 50PYH) e-Cigarette/Vaping Use: Never Used Second Hand Smoke Exposure: No service: No Current occupational status: employed Current occupation: [employer] Current occupational exposures/hazards: No Cognitive needs: No Hearing needs: No Vision needs: No Review of Systems Const All systems reviewed & are unremarkable except as noted in HPI and below Physical Exam Vital Signs: Last Vital Signs Pulse 83 06/06/24 13:54 BP 150/80 H 06/06/24 13:54 Pulse Ox 97 06/06/24 13:54 Oxygen Delivery Method Room Air 06/06/24 13:54 BMI result Body Mass Index 31.7 Const General: comfortable and no acute distress Orientation/consciousness: patient oriented x3 HEENT Head: Yes normocephalic Mouth: Normal oral and palatal mucosa present Eyes EOM: EOMs intact bilaterally Neck Neck: Yes supple Resp Auscultation: clear to auscultation bilaterally Cardio Jugular venous distension: no JVD Rate: regular rate GI Palpation (GI): Soft to palpation Auscultation: normal bowel sounds General: Yes no CVA tenderness Back/Spine/Pelvis Back: no CVA tenderness Skin General skin exam: no rashes or lesions noted Neuro General: patient oriented x3 and moves all extremities Extrem General: Yes no pedal edema Results Reviewed Nephrology Results: Hgb 12.7 g/dl (12.0-16.0) 04/22/24 WBC 6.5 X10*3/uL (4.8-10.8) 04/22/24 Plt Count 206 X10*3/uL (160-400) 04/22/24 Sodium 140 mmol/L (135-145) 04/22/24 Potassium 4.6 mmol/L (3.3-5.1) 04/22/24 Chloride 109 mmol/L (96-108) H 04/22/24 Carbon Dioxide 22 mmol/L (22-29) 04/22/24 BUN 21 mg/dL (9-16) H 04/22/24 Creatinine 1.03 mg/dL (0.5-1.4) 04/22/24 Calcium 9.4 mg/dL (8.4-10.2) 04/22/24 Urine Protein 300 (3+) mg/dL (Neg-Trace) H 04/27/24 Urine Creatinine 73.79 mg/dL 04/27/24 Assessment & Plan Assessment & Plan (1) CKD stage 3 due to type 2 diabetes mellitus: Code(s): E11.22 - Type 2 diabetes mellitus with diabetic chronic kidney disease; N18.30 - Chronic kidney disease, stage 3 unspecified Category: Medical (2) Hypertension: Code(s): I10 - Essential (primary) hypertension Category: Medical Qualifiers: Hypertension type: primary hypertension Qualified Code(s): I10 - Essent ial (primary) hypertension (3) Diabetic nephropathy: Code(s): E11.21 - Type 2 diabetes mellitus with diabetic nephropathy Category: Medical Qualifiers: Diabetes mellitus type: type 2 Qualified Code(s): E11.21 - Type 2 diabetes mellitus with diabetic nephropathy Plan Caitlyn has diabetic nephropathy. She has diabetes over 30 years. She has atherosclerotic peripheral arterial disease. USS showed no hemodynamically significant right renal artery stenosis. Duplex findings are consistent with less than 60% left renal artery stenosis. There was a 2 mm nonobstructing left renal calculus is seen. No right renal calculus is seen. No hydronephrosis is noted bilaterally. I increased her lisinopril to 10 mg twice daily. I shall be maximizing ACEI. She may need a renal biopsy. Her renal functions are stable. She is on SGLT2 inhibitor . Her edema can be multifactorial due to vascular disease, amlodipine and proteinuria. She likely will need Chlorthalidone. She needs to drop some weight and cut back sodium in the diet. She needs to maintain good hydration. She should avoid nonsteroidal anti-inflammatories. I did not make any other medication changes today. All questions answered. Follow-up appointment given Orders: Orders Blood Urea Nitrogen 2 Months E11.21 - Type 2 diabetes mellitus with diabetic nephropathy, E11.22 - Type 2 diabetes mellitus with diabetic chronic kidney disease, I10 - Essential (primary) hypertension, N18.30 - Chronic kidney disease, stage 3 unspecified Creatinine 2 Months E11.21 - Type 2 diabetes mellitus with diabetic nephropathy, E11.22 - Type 2 diabetes mellitus with diabetic chronic kidney disease, I10 - Essential (primary) hypertension, N18.30 - Chronic kidney disease, stage 3 unspecified Electrolytes 2 Months E11.21 - Type 2 diabetes mellitus with diabetic nephropathy, E11.22 - Type 2 diabetes mellitus with diabetic chronic kidney disease, I10 - Essential (primary) hypertension, N18.30 - Chronic kidney disease, stage 3 unspecified Protein Creatinine Ratio, Ur 2 Months E11.21 - Type 2 diabetes mellitus with diabetic nephropathy, E11.22 - Type 2 diabetes mellitus with diabetic chronic kidney disease, I10 - Essential (primary) hypertension, N18.30 - Chronic kidney disease, stage 3 unspecified Coding Level of Care Code Est Pt Level 4 (42904) Diagnoses CKD stage 3 due to type 2 diabetes mellitus E11.22; N18.30 Primary hypertension I10 Hypertension type: primary hypertension Diabetic nephropathy associated with type 2 diabetes mellitus E11. Diabetes mellitus type: type 2
== END 2024-06-06 14:15 | disposition home or self-care (01) ==
PROVIDERS: PCP Nurse Practitioner Family; Visit Provider Internal Medicine Nephrology
DX: I12.9 Hypertensive chronic kidney disease with stage 1 through stage 4 chronic kidney disease, or unspecified chronic kidney disease (principal); E11.22 Type 2 diabetes mellitus with diabetic chronic kidney disease; N18.30 Chronic kidney disease, stage 3 unspecified
CPT/HCPCS: 99214

== ENCOUNTER → 2024-06-06 13:49 | Outpatient (BNVA) | payer OTHER, SELFPAY | PROVIDERS: PCP Nurse Practitioner Family; Visit Provider Internal Medicine Nephrology ==

== ENCOUNTER 2024-08-12 14:53 | Outpatient (AMB) | payer OTHER, SELFPAY ==
[2024-08-12 14:57] VITALS: BP 142/70; PULSE 78; O2SAT 100; BMI 31.8
--- NOTE | 2024-08-12 14:57 | A.OFFVIS_ITS ---
Vital Signs 08/12/24 14:57 Height 5 ft 5 in Weight 191 lb 5.78 oz BMI 31.8 BP 142/70 H Blood Pressure Location Rt brachial Position Sitting Pulse 78 Pulse Source Pulse Oximeter Pulse Oximetry (%) 100 Oxygen Delivery Method Room Air Intake Visit Reasons: follow up r/s from 05/25 Intake Note: Caitlyn presents in office today for a scheduled ~6-8 mos FUV s/p colo w/ TH CC; Any changes or new sx since last visit? None per pt. Any labs or diagnostics since last visit? ?Imaging as of February, Labs as of April. Pharmacy; [facility] Costume Designer Required: No Allergies meperidine [Demerol] Allergy (Intermediate, Verified 08/12/24 14:58) vomiting albuterol Allergy (Mild, Verified 08/12/24 14:58) Facial flushing erythromycin base [Erythromycin Base] Allergy (Mild, Verified 08/12/24 14:58) DIFFICULTY BREATHING metoclopramide [Reglan] Allergy (Unknown, Verified 08/12/24 14:58) Unknown empagliflozin [From Jardiance] Adverse Reaction (Intermediate, Verified 08/12/24 14:58) Headache HPI HPI follow up r/s from 05/25: Details: LAST VISIT: Tubular adenoma of colon Screening for colon cancer Status post colonoscopy 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 If unable make it that soon will schedule CT scan with IV and oral contrast. What to expect before during and after procedure discussed with patient. Patient denies any ill effects from the prep, anesthesia or procedure itself. Denies any cardiac or respiratory symptoms. Discussed with p atient the importance of clear liquid diet and good bowel prep I will see patient after the procedure, sooner on as needed basis. Patient is agreeable to this plan and verbalizes understanding of instructions. She was given the opportunity to ask questions and all questions answered. ? Thank you for allowing me to participate in her care Orders Orders Blood Urea Nitrogen Today R10.11 CT abdomen pelvis w IV con Today R10.9 Creatinine Today R10.11 Medications New polyethylene glycol 3350 (Miralax) As directed by gastroenterology department at [facility] 238 grams PO ONCE 238 grams 0RF Z12.11 bisacodyl (Dulcolax (bisacodyl)) take 4 tabs at noon the day before your colonoscopy 20 mg (4 x 5 mg) PO ONCE 1 day 4 tabs 0RF Z12.11 COLONOSCOPY: Findings: Terminal Ileum-not intubated Cecum:no residual tissue noted from previous excised lesion but a small adenomatous area over the appediceal orifice about 4-6 mm noted, lifted with erbe jet and removed gently using biopsy forceps Ascending Colon: x2 sessile polyps 6-9 mm removed with cold snare Transverse Colon - x 2 sessile polyps 7-9 mm removed with cold snare Descending Colon: 10 mm sessile polyp removed with cold snare Sigmoid Colon: normal Rectum: Retroflexion with small internal hemorrhoids seen, grade I Anorectum - normal Intervention: erbe jet and lift, cold snare, biopsy forceps Colon preparation: [place] Bowel Preparation Scale Right colon; 2 Transverse colon: 2 Left colon; 2 (0 = Unprepared colon segment with mucosa not seen due to solid stool that cannot be cleared. 1 = Portion of mucosa of the colon segment seen, but other areas of the colon s egment not well seen due to staining, residual stool and/or opaque liquid. 2 = Minor amount of residual staining, small fragments of stool and/or opaque liquid, but mucosa of colon segment seen well. 3 = Entire mucosa of colon segment seen well with no residual staining, small fragments of stool or opaque liquid) Impression and Post Procedure Diagnosis: colon polyps internal hemorrhoids Plan: High fiber diet leaflet Avoid straining at stool, epsom salts and sitz bath, anusol supps or cream Repeat Colonoscopy in 6 months or earlier if clinically indicated PATHOLOGY Diagnosis A. Colon, transverse, polypectomies (2): - Tubular adenoma; negative for high-grade dysplasia or carcinoma. - Inflammatory polyp. B. Colon, appendiceal orifice, polypectomy: Fragments of tubulovillous adenoma; negative for high- grade dysplasia or carcinoma. C. Colon, ascending, polypectomies (2): - Fragments of tubular adenoma; negative for high-grade dysplasia or carcinoma. - Fragments of sessile serrated lesion/polyp; negative for cytologic dysplasia. D. Colon, descending, polypectomy: Hyperplastic mucosal polyp TODAY'S VISIT Patient is here today for follow-up and to discuss colonoscopy results. Tubulovillous adenoma found in appendiceal orifice without high-grade dysplasia or carcinoma. Fragments of tubular adenoma and fragments of sessile serrated polyps also found. Recommendation was made for patient to return in 6 months. Patient is having trouble moving her bowels. Denies any ill effects from the prep, anesthesia or procedure itself. Patient denies any GI concerning symptoms. Denies melena, hematochezia, unintentional weight loss or ribbon like stools. Patient denies dyspepsia, dysphagia or odynophagia. Patient denies any cardiac or respiratory symptoms. [facility] Medical History Stroke ASCVD (arteriosclerotic cardiovascular disease) CHF (congestive heart failure) PAD (peripheral artery disease) HTN (hypertension) Chronic renal insufficiency Diabetes Nicotine dependence, cigarettes, uncomplicated Tubular adenoma of colon Fibromyalgia Vertigo Osteoarthritis Surgical History History of colonoscopy History of cataract surgery Family History Mother Diabetes Stroke Father Lung cancer Social History Housing: House Patient Tobacco Use Status: Current everyday Tobacco user Tobacco use type: Cigarette Cigarette Packs Per Day: 1 Cigarettes Per Day: 20.0 Years Smoked: (onset 8yo, 1ppd x 55yrs, 50PYH) e-Cigarette/Vaping Use: Never Used Second Hand Smoke Exposure: No service: No Current occupational status: employed Current occupation: [employer] Current occupational exposures/hazards: No Cognitive needs: No Hearing needs: No Vision needs: No Review of Systems Const Denies weight gain and Denies weight loss ENT Reports no additional complaints, Denies dysphagia and Denies odynophagia Card Reports no additional complaints Resp Reports no additional complaints GI Denies abdominal pain, Denies belching, Denies melena, Denies bloating, Denies change in bowel habits, Denies dysphagia, Denies excessive flatus, Denies dyspepsia, Denies heartburn, Denies diarrhea, Denies loose stools, Denies nausea, Denies odynophagia and Denies vomiting Reports no additional complaints Musc Reports no additional complaints Neuro Reports no additional complaints Psych Reports no additional complaints Endo Reports no additional complaints Physical Exam Vital Signs: Last Vital Signs Pulse 78 08/12/24 14:57 BP 142/70 H 08/12/24 14:57 Pulse Ox 100 08/12/24 14:57 Oxygen Delivery Method Room Air 08/12/24 14:57 BMI result Body Mass Index 31.8 Const Other: Ambulating with walker General: no acute distress Nutritional Appearance: well nourished and obese Orientation/consciousness: patient oriented x3 Resp Effort & Inspection: normal respiratory effort, able to speak in complete sentences, no tracheal deviation and symmetric chest movement Auscultation: clear to auscultation bilaterally Cardio Rate: regular rate Heart sounds: S1 normal heart sound present and S2 normal heart sound present GI Inspection: Yes normal to inspection, No distended and Yes obesity Palpation (GI): Soft to palpation, not firm, nontender and No hepatosplenomegaly present Auscultation: normal bowel sounds General: Yes no CVA tenderness Back/Spine/Pelvis Back: no CVA tenderness Skin General skin exam: elasticity normal, turgor normal and dry skin Neuro General: patient oriented x3 Psych Appearance: grossly normal Mental Status: mental status grossly normal Results Reviewed Results Reviewed: CT OF ABDOMEN AND PELVIS IMPRESSION: Limitations related to artifact from patient's arms being down by her side causing streak artifact to involve the dorsal aspect of the body. No evidence of bowel ileus or obstruction. No evidence of obstructive uropathy. Question region of diminished density upper pole of the right kidney which could be related to pyelonephritis or possible artifact, and renal ultrasound would be of help in further evaluation of this finding. Vascular calcified plaque, as described, without definite radiographic evidence of bowel ischemia. Assessment & Plan Assessment & Plan (1) Tubular adenoma of colon: Code(s): D12.6 - Benign neoplasm of colon, unspecified Category: Medical (2) Screening for colon cancer: Code(s): Z12.11 - Encounter for screening for malignant neoplasm of colon Category: Medical (3) Status post colonoscopy: Code(s): Z98.890 - Other specified postprocedural states (4) Tubulovillous adenoma of colon: Code(s): D12.6 - Benign neoplasm of colon, unspecified Plan Message sent to surgical schedulers to book procedure for patient. Discussed with her the importance of good bowel prep and clear liquid diet day before procedure. Patient will start taking Dulcolax tablets daily. Increase fluid intake and activity to promote better bowel motility. Patient denies any issues with anesthesia. No history of sleep apnea. Not on any anticoagulation medication. Patient denies any cardiac or respiratory symptoms. I will see patient after the procedure, sooner on as needed basis. She is agreeable to this plan and verbalizes understanding of instructions. She was given the opportunity to ask questions and all questions answered. Thank you for allowing me to participate in her care Medications: New bisacodyl (Dulcolax (bisacodyl)) 10 mg (2 x 5 mg) PO BEDTIME 180 tabs 4RF polyethylene glycol 3350 (Miralax) As directed by gastroenterology department at [facility] 238 grams PO ONCE 238 grams 0RF Z12.11 - Encounter for screening for malignant n eoplasm of colon Coding Level of Care Code Est Pt Level 3 (72445) Diagnoses Tubular adenoma of colon D12.6 Screening for colon cancer Z12.11 Status post colonoscopy Z98.890 Tubulovillous adenoma of colon D12.6 Time Spent (min) 30 Comment 20 minutes spent with patient and additional 10 minutes spent reviewing her records
--- OUTSIDE RECORDS SUMMARY | 2024-08-17 10:45 | XMS_ITS | Continuity of Care Document ---
Author Organization [facility] Address [address] [place] [address]- Care Team Providers Care Technical Aid Name Role Phone Martin GUPTA, Matthew Moore Primary Care Physician [phone] Encounter [facility] R [id number] Date(s): 04/13/24 - 08/11/24 [facility] [address] [place] [id number] Attending Physician: Isrrael Foreman MD Admitting Physician: Isrrael Foreman MD Referring Physician: Isrrael Foreman MD Encounter Type: Pre-Outpt Allergies, Adverse Reactions, Alerts Substance Criticality Severity Reaction Reaction Severity Status erythromycin unknown Active Reglan Active Demerol HCl vomiting Active Latex rash soreness Active Immunizations Given and Recorded Vaccine Date Status Refusal Reason influenza virus vaccine, inactivated 11/22/21 Give n influenza virus vaccine, inactivated 07/27/16 Give n pneumococcal 23-valent vaccine 07/27/16 Given Medications amLODIPine 10 mg oral tablet 10 mg, 1, tablet, By Mouth, Daily, # 30 tablet, Refills 2, Tot. Refills 2, Maintenance, 11/27/21 8:46:00 AM EDT, Route to Pharmacy Electronically, [facility], Partial fill upon patient request if the prescription is for a schedule II opioid drug., 165, cm, 11/27/21 5:35:00 EDT, Height,85.6, kg, 11/22/21 8:19:00 EDT, Dry Weight Start Date: 11/27/21 Stop Date: 02/25/22 Status: Ordered Quantity: 30.0 Unit: tablet Repeat number: 3 aspirin 81 mg oral tablet, chewable 81 mg, 1, tablet, By Mouth, Daily, # 30 tablet, Refills 2, Tot. Refills 2, Maintenance, 11/27/21 8:46:00 AM EDT, Route to Pharmacy Electronically, [facility], Partial fill upon patient request if the prescription is for a schedule II opioid drug., 165, cm, 11/27/21 5:35:00 EDT, Height,85.6, kg, 11/22/21 8:19:00 EDT, Dry Weight Start Date: 11/27/21 Stop Date: 02/25/22 Status: Ordered Quantity: 30.0 Unit: tablet Repeat number: 3 atorvastatin 40 mg oral tablet 1 tablet = 40 mg, By Mouth, Daily at bedtime, # 30 tablet, 2 Refills, Maintenance, 11/27/21 8:47:00 AM EDT, Tablet, [facility], Partial fill upon patient request if the prescription is for a schedule II opioid drug., 165, cm, 11/27/21 5:35:00 EDT, Height, 85.6, kg, 11/22/21 8:19:00 EDT, Dry Weight Start Date: 11/27/21 Stop Date: 02/25/22 Status: Ordered Quantity: 30.0 Unit: tablet Repeat number: 3 docusate sodium 100 mg oral capsule 100 mg, 1, capsule, By Mouth, 2 times a day, # 20 capsule, Refills 0, Tot. Refills 0, Maintenance, 11/27/21 8:47:00 AM EDT, Route to Pharmacy Electronically, [facility], Partial fill upon patient request if the prescription is for a schedule II opioid drug., 165, cm, 11/27/21 5:35:00 ED T, Height, 85.6, kg, 11/22/21 8:19:00 EDT, Dry Weight Start Date: 11/27/21 Stop Date: 12/07/21 Status: Ordered Quantity: 20.0 Unit: capsule Repeat number: 1 Lantus Solostar Pen 100 units/mL subcutaneous solution = 60 units, Subcutaneous Infusion, Daily at bedtime, # 12 mL, 2 Refills, Maintenance, 11/27/21 8:46:00 AM EDT, Injection, [facility], Partial fill upon patient request if the prescription is for a schedule II opioid drug., 165, cm, 11/27/21 5:35:00 EDT, Height, 85.6, kg, 11/22/21 8:19:00 EDT, Dry Weight Start Date: 11/27/21 Stop Date: 02/25/22 Status: Ordered Quantity: 12.0 Unit: mL Repeat number: 3 Ozempic 2 mg/3 mL (0.25 mg or 0.5 mg dose) subcutaneous solution 0 Refills, Maintenance, 08/02/24 8:21:00 AM EST, Partial fill upon patient request if the prescription is for a schedule II opioid drug. Start Date: 08/02/24 Status: Ordered Repeat number: 1 Problem List Condition Confirmation Course Effective Dates Status Health St atus Informant Diabetes mellitus Confirmed Active Hypertension Confirmed Active PVD (peripheral vascular disease) Confirmed Active Thyroid nodule Confirmed Active Social History Social History Type Response Smoking Status 10 or more cigarette s (1/2 pack or more)/day in last 30 days entered on: 11/20/21 Sex Sex Representation Female (finding) Patient Care team information Care Team Personnel Name: May Good RN Position: S RN Member Role: Primary Care Nurse Name: Matthew Salazar NP Position: Reference Physician Member Role: PCP Address: [address] [place] [address] Telecom: Name: Gemini Martinez RN Position: S RN Member Role: Primary Care Nurse Care Team Related Persons Name: MAHAD LAN Name: PT STATES, NO ONE Name: NETTIE LUNA Insurance Providers Guarantor name: KRISTINA ARTEAGA [employer] Nutrition Plan Information #: 1 Payer: [facility] FF NON BHP HMO Member Number: [id number] Policy Number: NA Group Number: [id number] Health Plan Information #: 2 Payer: [facility] FF NON BHP HMO Member Number: [id number] Policy Number: NA Group Number: NA
--- OUTSIDE RECORDS SUMMARY | 2024-08-17 10:45 | XMS_ITS | Continuity of Care Document ---
Author Organization [facility] Address [address] [place] [id number]- Care Team Providers Care Stem Assembler Name Role Phone Martin GUPTA, Matthew Moore Primary Care Physician [id number] Date(s): 08/02/24 - 08/09/24 [facility] [address] [place] [address] Encounter Diagnosis PVD (peripheral vascular disease)(Discharge Diagnosis) - 08/02/24 Attending Physician: Isrrael Foreman MD Admitting Physician: Isrrael Foreman MD Referring Physician: Matthew Salazar NP Encounter Type: Office Visit Allergies, Adverse Reactions, Alerts Substance Criticality Severity [...] 8:46:00 AM EDT, Route to Pharmacy Electronically, [facility], Partial fill upon patient request if [...] 8:46:00 AM EDT, Route to Pharmacy Electronically, [facility], Partial fill upon patient request if [...] Refills, Maintenance, 11/27/21 8:47:00 AM EDT, Tablet, [facility], Partial fill upon patient request if [...] 8:47:00 AM EDT, Route to Pharmacy Electronically, [facility], Partial fill upon patient request if [...] Refills, Maintenance, 11/27/21 8:46:00 AM EDT, Injection, [facility], Partial fill upon patient [...] disease) Confirmed Active Thyroid nodule Confirmed Active Diagnosis Diagnosis Type Effective Dates Health Status inical Service Informant PVD (peripheral vascular disease) Discharge Diagnosis 08/02/24 Vital Signs Most recent to oldest [Reference Range]: 1 Height 165 cm (08/02/24 8:21 AM) Weight 86.18 kg (08/02/24 8:21 AM) Body Mass Index [18.5-24.99 kg/m2] 31.65 kg/m2 *>HHI* (08/02/24 8:21 AM) Weight Obtained Via Patient/family state d (08/02/24 8:21 AM) Social History Social History Type Response Smoking Status 10 or more cigarette s (1/2 pack or more)/day in last 30 days entered on: 11/20/21 Sex Sex Representation Female (finding) Note * Harry Falcon: PERFORM Event Display: Patient Education/Instruction Authored Date: [id number] Ambulatory Adult Visit Summary [facility] [address] [facility] [address] [address] Name: KRISTINA ARTEAGA : 1960?? Visit: 08/02/2024 06:43?? Ambulatory Visit Instructions ?? Your Care Team Primary Care Provider Martin GUPTA , Matthew Moore? This Visit Provider Lesia Leroy NP Your Diagnosis PVD (peripheral vascular disease) Vitals Signs Height: 165 cm Weight: 86.18 kg Body Mass Index:??31.65 kg/m2??Critical Body surface area: 1.99 Medications The list below reflects the information in our records and provided by you today along with any changes made during this visit. Please continue your medications until treatment is completed or stopped by your provider. If this is different from the information you have or there are other questions,please contact the prescribing provider. What How Much When Instructions Unchanged Amlodipine (amLODIPine 10 mg oral tablet) 1 tab(s) Oral Daily Duration: 30 Days Unchanged Aspirin (aspirin 81 mg oral tablet, chewable) 1 tab(s) Oral Daily Duration: 30 Days Unchanged Atorvastatin (atorvastatin 40 mg oral tablet) 1 tab(s) Oral Daily at Bedtime Duration: 30 Days Unchanged Docusate (docusate sodium 100 mg oral capsule) 1 capsule Oral Twice a day Duration: 10 Days Unchanged Insulin Glargine (Lantus Solostar Pen 100 units/ mL subcutaneous solution) 60 unit(s) Subcutaneous Infusion Daily at Bedtime Duration: 30 Days Unchanged semaglutide (Ozempic 2 mg/ 3 mL (0.25 mg or 0.5 mg dose) subcutaneous solution) Medications and Immunizations Administered Medications Given During Visit No medications given during this visit.?? Allergies (NKA means No Known Allergies) Demerol HCl??(vomiting) Latex??(rash, soreness) Reglan erythromycin??(unknown) Common Emergency Awareness Tips IS IT A STROKE? Act FAST and Check for these signs: FACE Does the face look uneven? ARM Does one arm drift down? SPEECH Does their speech sound strange? TIME Call at any sign of stroke ?? Heart Attack Signs Chest discomfort: Most heart attacks involve discomfort in the center of the chest and lasts more than a few minutes, or goes away and comes back. It can feel like uncomfortable pressure, squeezing, fullness or pain. Discomfort in upper body: Symptoms can include pain or discomfort in one or both arms, back, neck, jaw or stomach. Shortness of breath: With or without discomfort. Other signs: Breaking out in a cold sweat, nausea, or lightheaded. Remember, MINUTES DO MATTER. If you experience any of these heart attack warning signs, call to get immediate medical attention! ?? Smoking can increase your chances of developing chronic health problems and can cause harmful effects to other family members in your house. If you smoke, you are strongly encouraged to quit. Please call [facility] at [phone] or [phone] ([phone]) or log in to [email or web address] for referrals to smoking cessation programs. ?? The National Suicide Prevention Hotline is available 30/03 if you or someone you know needs to find a reason to keep living. By calling 5-125-293-Chainalytics (1079) you'll be connected to a skilled, trained counselor at a crisis center in your area. [facility] You can view and manage your care through the patient portal or by using a health care daquan of your choosing. [employer] is a website that allows you to securely view your medical information including your hospital discharge summary, office visit summaries, medications and follow-up visits. You can also request appointments, renew medications, and request access to your medical information using a health care daquan of your choosing, or just ask a question. You can enroll at [email or web address] or register during your next office visit. [facility], in keeping with [facility] guidance, no longer requires face masks for staff, patientsor visitors in most situations. Similiar to time spent indoors at other locations, there is the chance that you were exposed to repiratory viruses during your time with us (such as flu or COVID-19). If you develop symptoms concerning for a viral respiratory infection, please seek testing (and treatment if indicated) from your medical provider or home test kit. ?? Disclaimer: The information provided is of a general nature and is intended to be used in conjunction with the recommendations and advice of your health care practitioner. Every effort has been made to ensure that the information provided is accurate and complete at the time it is provided to you however, as your needs change, or, as new information becomes available, different or additional instructions may be required. ?? If you have questions, please consult with your primary care provider or pharmacist, as appropriate. This information is not intended to serve as substitution for assessment and evaluation by a qualified health care provider. If you do not have a primary care provider, you may find a [facility] provider by calling [facility] at [phone]. Patient Care team information Care Team Personnel Name: May Good RN Position: S RN Member Role: Primary Care Nurse Name: Matthew Salazar NP Position: Reference Physician Member Role: PCP Address: [address] [place] [id number] Telecom: Name: Gemini Martinez RN Position: S RN Member Role: Primary Care Nurse Care Team Related Persons Name: MAHAD LAN Name: PT STATES, NO ONE Name: NETTIE LUNA Insurance Providers Guarantor name: [facility] Health Plan Information #: 1 Payer: [facility] FF NON BHP HMO Member Number: [id number] Policy Number: NA Group Number: [id number] Health Plan Information #: 2 Payer: [facility] FF NON BHP HMO Member Number: [id number] Policy Number: NA Group Number: NA
== END 2024-08-12 15:59 | disposition home or self-care (01) ==
PROVIDERS: PCP Nurse Practitioner Family; Visit Provider Nurse Practitioner Family
DX: Z01.818 Encounter for other preprocedural examination (principal); Z12.11 Encounter for screening for malignant neoplasm of colon; Z86.0100 Personal history of colon polyps, unspecified
CPT/HCPCS: 99212

== ENCOUNTER → 2024-08-12 14:53 | Outpatient (BNVA) | payer OTHER, SELFPAY | PROVIDERS: PCP Nurse Practitioner Family; Visit Provider Nurse Practitioner Family ==

== ENCOUNTER 2024-08-16 09:21 | Outpatient (REF) | payer OTHER, SELFPAY ==
[2024-08-16 13:13] LABS: Anion Gap 15 (12-20); Blood Urea Nitrogen 22 mg/dL (9-16); Carbon Dioxide 24 mmol/L (22-29); Chloride 107 mmol/L (96-108); Estimated Glomerular Filt Rate 56; Potassium 4.8 mmol/L (3.3-5.1); Sodium 141 mmol/L (135-145)
[2024-08-16 14:03] LABS: Creatinine Urine 91.45 mg/dL
[2024-08-16 14:24] LABS: Protein/Creatinine Ratio, Ur 4.22 (<0.2); Total Protein Urine Random 386 mg/dL (<12)
== END 2024-08-16 09:22 | disposition home or self-care (01) ==
LOC: HO.HMGCLDS 09:21
PROVIDERS: PCP Nurse Practitioner Family; Visit Provider Internal Medicine Nephrology
DX: I12.9 Hypertensive chronic kidney disease with stage 1 through stage 4 chronic kidney disease, or unspecified chronic kidney disease (principal); E11.22 Type 2 diabetes mellitus with diabetic chronic kidney disease; E11.21 Type 2 diabetes mellitus with diabetic nephropathy; N18.30 Chronic kidney disease, stage 3 unspecified
CPT/HCPCS: 36415; 80051; 82565; 82570; 84156; 84520

== ENCOUNTER 2024-09-14 08:53 | Outpatient (REF) | payer OTHER, SELFPAY ==
--- OUTSIDE RECORDS SUMMARY | 2024-09-14 08:59 | XMS_ITS | Continuity of Care Document ---
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 Role Phone Martin GUPTA, Matthew Moore Primary Care Physician [phone] Encounter [place] Date(s): 08/02/24 - 09/01/24 [facility] [address] [place] [id number] Attending Physician: Catie Valdes Admitting Physician: Catie Valdes Referring Physician: Admtr ArMalcom Encounter Type: Triage Allergies, Adverse Reactions, Alerts Substance Criticality Severity Reaction Reaction Severity Status erythromycin unknown Active Reglan Active Latex rash soreness Active Demerol HCl vomiting Active Immunizations Given and Recorded Vaccine Date Status Refusal Reason influenza virus vaccine, inactivated 11/22/21 Give n influenza virus vaccine, inactivated 07/27/16 Give n pneumococcal 23-valent vaccine 07/27/16 Given Medications amLODIPine 10 mg oral tablet 10 mg, 1, tablet, By Mouth, Daily, # 30 tablet, Refills 2, Tot. Refills 2, Maintenance, 11/27/21 8:46:00 AM EDT, Route to Pharmacy Electronically, [facility], Partial fill upon patient [...] 8:46:00 AM EDT, Route to Pharmacy Electronically, [facility], Partial fill upon patient request if [...] Refills, Maintenance, 11/27/21 8:47:00 AM EDT, Tablet, [facility], Partial fill upon patient request if [...] 8:47:00 AM EDT, Route to Pharmacy Electronically, [facility], Partial fill upon patient [...] Refills, Maintenance, 11/27/21 8:46:00 AM EDT, Injection, [facility], Partial fill upon patient request if [...] on: 11/20/21 Sex Sex Representation Female (finding) CT Abdomen * Event Display: CT Scan Abdomen Authored Date: Patient Care team information Care Team Personnel Name: May Good RN Position: S RN Member Role: Primary Care Nurse Name: Matthew Salazar NP Position: Reference Physician Member Role: PCP Address: [address] [place] [address] Telecom: Name: Gemini Martinez RN Position: S RN Member Role: Primary Care Nurse Care Team Related Persons Name: MAHAD LAN Name: PT STATES, NO ONE Name: NETTIE LUNA Insurance Providers Guarantor name: [email or web address] Plan Information #: 1 Payer: [employer] FF NON BHP HMO Member Number: NA Policy Number: NA Group Number: NA
[2024-09-14 09:54] LABS: MANUAL DIFF FLAG NO
[2024-09-14 10:04] LABS: Appearance Urine Cloudy; Color Urine Yellow; Glucose Urine UA Negative (Negative); Leukocyte Esterase Urine Negative (Negative); Nitrite Urine Negative (Negative); PH 5.5 (5.0-9.0); UMIC TRIGGER UACC YES; Urine Blood Trace (Negative); Urine Ketones Negative (Negative); Urine Protein 300 (3+) mg/dL (Neg-Trace)
[2024-09-14 10:05] LABS: Basophils Absolute Auto 0.1 X10*3/uL (0.0-0.2); Basophils Percent Auto 0.7 % (0-2); Eosinophils Absolute Auto 0.3 X10*3/uL (0.0-0.4); Eosinophils Percent Auto 3.2 % (0-4); Hematocrit 40.8 % (37.0-47.0); Hemoglobin 12.8 g/dl (12.0-16.0); Imm Gran Abs Auto 0.02 X10*3/uL (0.00-0.03); Imm Gran Pct Auto 0.2 % (0.0-0.4); Lymphocytes Absolute Auto 3.3 X10*3/uL (1.2-4.9); Lymphocytes Percent Auto 36.5 % (20-40); Mean Corpuscular HGB Conc 31.4 g/dl (31.0-35.0); Mean Corpuscular Hemoglobin 22.6 pg (27.0-33.0); Mean Corpuscular Volume 72.1 fL (80.0-98.0); Mean Platelet Volume 10.4 fL (9.4-12.3); Monocytes Absolute Auto 0.9 X10*3/uL (0.1-1.2); Monocytes Percent Auto 10.4 % (2-11); Neutrophils Absolute Auto 4.5 x10*3/uL (2.0-8.3); Platelet Count 254 X10*3/uL (160-400); Red Blood Count 5.66 X10*6/uL (4.20-5.50); Red Cell Distribution Width 14.6 % (11.0-16.0); White Blood Count 9.1 X10*3/uL (4.8-10.8)
[2024-09-14 10:15] LABS: Bacteria Urine 4+ (None Seen); Hyaline Casts Urine 0-2 /LPF (0-2); RBC Urine 0-2 /HPF (0-2); Squamous Epithelial Cell Urine 0-2 /HPF (0-2); UACC Culture Trigger YES
[2024-09-14 10:27] LABS: Estimated Average Glucose 189 mg/dL; Hemoglobin A1C 211.2543 umol/L; Hemoglobin A1c % 8.2 % (<6.0); Total Hemoglobin (HGBA1C) 3207.7886 umol/L
[2024-09-14 10:47] LABS: Alanine Aminotransferase 19 U/L (0-31); Albumin Level 3.8 g/dL (3.5-5.0); Alkaline Phosphatase 66 U/L (39-117); Anion Gap 12 (12-20); Aspartate Amino Transferase 23 U/L (5-31); Bilirubin Total 0.3 mg/dL (0.0-1.0); Blood Urea Nitrogen 22 mg/dL (9-16); Calcium 9.7 mg/dL (8.4-10.2); Carbon Dioxide 27 mmol/L (22-29); Chloride 112 mmol/L (96-108); Cholesterol 186 mg/dL (<200); Estimated Glomerular Filt Rate 56; Glucose Fasting 111 mg/dL (60-99); HDL Cholesterol 56 mg/dL (>40); LDL Cholesterol Calculated 63 mg/dL (<100); Potassium 4.8 mmol/L (3.3-5.1); Sodium 146 mmol/L (135-145); Total Protein 6.9 g/dL (6.5-8.0); Triglycerides 338 mg/dL (<150)
[2024-09-14 10:53] LABS: TSH reflex Free T4 1.34 uIU/mL (0.32-4.0)
== END 2024-09-14 08:54 | disposition home or self-care (01) ==
LOC: HO.HMGCLDS 08:53
PROVIDERS: PCP Nurse Practitioner Family; Visit Provider Nurse Practitioner Family
DX: I12.9 Hypertensive chronic kidney disease with stage 1 through stage 4 chronic kidney disease, or unspecified chronic kidney disease (principal); E11.22 Type 2 diabetes mellitus with diabetic chronic kidney disease; E11.21 Type 2 diabetes mellitus with diabetic nephropathy; N18.30 Chronic kidney disease, stage 3 unspecified; E78.1 Pure hyperglyceridemia; N20.0 Calculus of kidney; I70.1 Atherosclerosis of renal artery
CPT/HCPCS: 36415; 80053; 80061; 81001; 81003; 83036; 84443; 85025; 87086

== ENCOUNTER 2024-09-14 11:32 | Outpatient (AMB) | payer OTHER, SELFPAY ==
--- NOTE | 2024-09-14 11:41 | HO.NEPHOV ---
Vital Signs 09/14/24 11:42 Height 5 ft 5 in Weight 194 lb BMI 32.3 BP 142/80 H Blood Pressure Location Lt brachial Position Sitting Intake Visit Reasons: CKD-LVM Upward Bound Director Required: No Accompanied by: Self / Same As Patient Allergies meperidine [Demerol] Allergy (Intermediate, Verified 09/14/24 11:42) vomiting albuterol Allergy (Mild, Verified 09/14/24 11:42) Facial flushing erythromycin base [Erythromycin Base] Allergy (Mild, Verified 09/14/24 11:42) DIFFICULTY BREATHING metoclopramide [Reglan] Allergy (Unknown, Verified 09/14/24 11:42) Unknown empagliflozin [From Jardiance] Adverse Reaction (Intermediate, Verified 09/14/24 11:42) Headache HPI Comments Details: Caitlyn was seen in follow up for proteinuria. She has diabetes over 30 years. She has history of atherosclerotic peripheral arterial disease. She had stents put in in her left lower extremity. She has no history of hypoglycemia . She has no history of cancers. She denies coronary artery disease, CVA, congestive heart failure, carotid stenosis, renal artery stenosis. She is not taking any SHAUNA inhibitor or an ARB. She does not have any hypoglycemias. She denies epistaxis, photosensitivity, hemoptysis, hematemesis, melena, nausea, vomiting, diarrhea, new bone or back pain, nephrolithiasis, history of hypercalcemia. She claims to be compliant with her medications. She remains employed and feels well. She has history of hepatitis C which has been treated. She has history of drug use when she was young. She denies taking excessive nonsteroidal anti-inflammatories. [facility] Medical History Stroke ASCVD (arteriosclerotic cardiovascular disease) CHF (congestive heart failure) PAD (peripheral artery disease) HTN (hypertension) Chronic renal insufficiency Diabetes Nicotine dependence, cigarettes, uncomplicated Tubular adenoma of colon Fibromyalgia Vertigo Osteoarthritis Surgical History History of colonoscopy History of cataract surgery Family History Mother Diabetes Stroke Father Lung cancer Social History Housing: House Patient Tobacco Use Status: Current everyday Tobacco user Tobacco use type: Cigarette Cigarette Packs Per Day: 1 Cigarettes Per Day: 20.0 Years Smoked: (onset 8yo, 1ppd x 55yrs, 50PYH) e-Cigarette/Vaping Use: Never Used Second Hand Smoke Exposure: No service: No Current occupational status: employed Current occupation: [employer] Current occupational exposures/hazards: No Cognitive needs: No Hearing needs: No Vision needs: No Review of Systems Const All systems reviewed & are unremarkable except as noted in HPI and below Physical Exam Vital Signs: Last Vital Signs BP 142/80 H 09/14/24 11:42 BMI result Body Mass Index 32.3 Const General: comfortable and no acute distress Orientation/consciousness: patient oriented x3 HEENT Head: Yes normocephalic Mouth: Normal oral and palatal mucosa present Eyes EOM: EOMs intact bilaterally Neck Neck: Yes supple Resp Auscultation: clear to auscultation bilaterally Cardio Jugular venous distension: no JVD Rate: regular rate GI Palpation (GI): Soft to palpation Auscultation: normal bowel sounds General: Yes no CVA tenderness Back/Spine/Pelvis Back: no CVA tenderness Skin General skin exam: no rashes or lesions noted Neuro General: patient oriented x3 and moves all extremities Extrem General: Yes no pedal edema Results Reviewed Nephrology Results: Hgb 12.8 g/dl (12.0-16.0) 09/14/24 WBC 9.1 X10*3/uL (4.8-10.8) 09/14/24 Plt Count 254 X10*3/uL (160-400) 09/14/24 Sodium 146 mmol/L (135-145) H 09/14/24 Potassium 4.8 mmol/L (3.3-5.1) 09/14/24 Chloride 112 mmol/L (96-108) H 09/14/24 Carbon Dioxide 27 mmol/L (22-29) 09/14/24 BUN 22 mg/dL (9-16) H 09/14/24 Creatinine 1.00 mg/dL (0.5-1.4) 09/14/24 Calcium 9.7 mg/dL (8.4-10.2) 09/14/24 Urine Protein 300 (3+) mg/dL (Neg-Trace) H 09/14/24 Urine Creatinine 91.45 mg/dL 08/16/24 Protein/Creatinin Ratio 4.22 (<0.2) H 08/16/24 Assessment & Plan Assessment & Plan (1) Hypertension: Code(s): I10 - Essential (primary) hypertension Category: Medical Qualifiers: Hypertension type: primary hypertension Qualified Code(s): I10 - Essential (primary) hypertension (2) CKD stage 3 due to type 2 diabetes mellitus: Code(s): E11.22 - Type 2 diabetes mellitus with diabetic chronic kidney disease; N18.30 - Chronic kidney disease, stage 3 unspecified Category: Medical (3) Diabetic nephropathy: Code(s): E11.21 - Type 2 diabetes mellitus with diabetic nephropathy Category: Medical Qualifiers: Diabetes mellitus type: type 2 Qualified Code(s): E11.21 - Type 2 diabetes mellitus with diabetic nephropathy (4) Renal calculus: Code(s): N20.0 - Calculus of kidney Category: Medical (5) Renal artery stenosis: Code(s): I70.1 - Atherosclerosis of renal artery Category: Medical Plan Caitlyn has diabetic nephropathy. She has diabetes over 30 years. She has atherosclerotic peripheral arterial disease. USS showed no hemodynamically significant right renal artery stenosis. Duplex findings are consistent with less than 60% left renal artery stenosis. There was a 2 mm nonobstructing left renal calculus is seen. No right renal calculus is seen. No hydronephrosis is noted bilaterally. I increased her lisinopril to 20 mg twice daily. She may need a renal biopsy. Her renal functions are stable. She is not on SGLT2 inhibitor( she does not know why). She needs to drop some weight and cut back sodium in the diet. She needs to maintain good hydration. She should avoid nonsteroidal anti-inflammatories. I did not make any other medication changes today. All questions answered. Follow-up appointment given Orders: Orders Creatinine 3 Months E11.21 - Type 2 diabetes mellitus with diabetic nephropathy, E11.22 - Type 2 diabetes mellitus with diabetic chronic kidney disease, I10 - Essential (primary) hypertension, I70.1 - Atherosclerosis of renal artery, N18.30 - Chronic kidney disease, stage 3 unspecified Blood Urea Nitrogen 3 Months E11.21 - Type 2 diabetes mellitus with diabetic nephropathy, E11.22 - Type 2 diabetes mellitus with diabetic chronic kidney disease, I10 - Essential (primary) hypertension, I70.1 - Atherosclerosis of renal artery, N18.30 - Chronic kidney disease, stage 3 unspecified Electrolytes 3 Months E11.21 - Type 2 diabetes mellitus with diabetic nephropathy, E11.22 - Type 2 diabetes mellitus with diabetic chronic kidney disease, I10 - Essential (primary) hypertension, I70.1 - Atherosclerosis of renal artery, N18.30 - Chronic kidney disease, stage 3 unspecified Medications: Changed From lisinopril 20 mg PO BID To lisinopril 20 mg PO BID 90 days 180 tabs 3RF Coding Level of Care Code Est Pt Level 4 (44210) Diagnoses Primary hypertension I10 Hypertension type: primary hypertension CKD stage 3 due to type 2 diabetes mellitus E11.22; N18.30 Diabetic nephropathy associated with type 2 diabetes mellitus E11. Diabetes mellitus type: type 2 Renal calculus N20.0 Renal artery stenosis I70.1
[2024-09-14 11:42] VITALS: BP 142/80; BMI 32.3
== END 2024-09-14 12:06 | disposition home or self-care (01) ==
PROVIDERS: PCP Nurse Practitioner Family; Visit Provider Internal Medicine Nephrology
DX: I12.9 Hypertensive chronic kidney disease with stage 1 through stage 4 chronic kidney disease, or unspecified chronic kidney disease (principal); E11.22 Type 2 diabetes mellitus with diabetic chronic kidney disease; N18.30 Chronic kidney disease, stage 3 unspecified; N20.0 Calculus of kidney; I70.1 Atherosclerosis of renal artery
CPT/HCPCS: 99214

== ENCOUNTER 2024-09-22 08:45 | Outpatient (AMB) | payer OTHER, SELFPAY ==
[2024-09-22 08:55] VITALS: BP 142/80; PULSE 83; O2SAT 98; BMI 32.4
--- NOTE | 2024-09-22 08:55 | A.OFFPC_ITS ---
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 Accompanied by: Self / Same As Patient Allergies meperidine [Demerol] Allergy (Intermediate, Verified 09/22/24 10:02) vomiting albuterol Allergy (Mild, Verified 09/22/24 10:02) Facial flushing erythromycin base [Erythromycin Base] Allergy (Mild, Verified 09/22/24 10:02) DIFFICULTY BREATHING metoclopramide [Reglan] Allergy (Unknown, Verified 09/22/24 10:02) Unknown empagliflozin [From Jardiance] Adverse Reaction (Intermediate, Verified 09/22/24 10:02) Headache Medication List - Last Reconciled 09/22/24 by KAMAR Zarate- aspirin 1 tab PO DAILY bisacodyl (Dulcolax (bisacodyl)) 10 mg (2 x 5 mg) PO BEDTIME blood sugar diagnostic (FreeStyle Lite Strips) test blood sugar 3 times per day blood-glucose meter (FreeStyle Lite Meter kit) As directed cholecalciferol (vitamin D3) 125 mcg PO DAILY dapagliflozin propanediol (Farxiga) 5 mg PO DAILY difluprednate 0.05% drps ophthalmic (eye) FreeStyle Sarah 2 [place] (flash glucose scanning reader) tid testing NS FreeStyle Sarah 2 Sensor (flash glucose sensor) tid testing NS insulin glargine (Lantus Solostar U-100 Insulin) 80 units (0.8 mL) subcut DAILY lancets (FreeStyle Lancets) test 3 times per day lisinopril 20 mg PO BID 90 days methylsulfonylmethane (MSM) 1,000 mg PO DAILY omega-3 acid ethyl esters 1 cap PO DAILY pen needle, diabetic (BD Ultra-Fine Rimma Pen Needle) daily use diabetes polyethylene glycol 3350 (Miralax) 238 grams PO ONCE rosuvastatin 40 mg PO DAILY 90 days Tobacco use date assessed: 09/22/24 Fall risk assessment: No Falls in past year Last assessed Fall Risk: 09/22/24 Dental Screening Dental Screen Date: 09/22/24 Did you have a dental visit in the last 12 months?: Yes Did you have a dental problem in the last 6 months where you did not have access to dental care?: No Was dental information given to patient?: Patient has dentist HPI PE HPI Details History of Present Illness The patient is a 63-year-old female presenting for a physical examination and management of Type 2 Diabetes Mellitus. She has been managing her diabetes with 60 units of Lantus nightly and previously with a low dose of Ozempic, which was discontinued due to severe constipation. Her most recent hemoglobin A1c level is 8.2%. She has a history of trying Jardiance, which was not well tolerated, and plans to start on Farxiga, as advised by her yardage caller, will send this med. She has been under the care of nephrology and cardiology. The patient undergoes low-dose CAT scans due to her smoking history. She also has microscopic hematuria with history of small renal calculi. Currently, microscopic hematuria is being evaluated with urine cytology, culture, UA, CT urogram, and referral to urology. Despite the utilization of a walker due to bilateral extremity weakness, monofilament testing was intact bilaterally on a recent examination. Her feet are slightly dry with trace to +1 edema noted bilaterally in the lower extremities. Pt rpeorts her eye exam is up to date. told pt she can get her flu vaccine at her pharmacy and shingles. NOTE: BP slightly up, i didnt take my BP meds this am yet . Health Maintenance - Continues low-dose CAT scans for smoke r's history and respiratory risk management. - nephrology and cardiology for ongoing chronic disease management. - Colonoscopy to be scheduled for gastro intestinal health maintenance. Social History - Smoking history warranted low-dose CAT scans indicating an ongoing smoking habit. - Uses a walker due to bilateral lower e xtremity weakness. Review of Systems denies any cp, increased SOB, visual hematuria, diarrhea, blood in stool, polyurea, polydipsia. Does have neuropathy, denies any SI or HI Physical Exam General: Cooperative, healthy appearing, comfortable, no acute distress and well developed, using walker (weakness to BLE) Orientation: Patient oriented x3 Limitations: Uses a walker due to weakness in bilateral extremities Head: Normal to inspection Ears: Hearing grossly normal bilaterally, intact Nose: Normal external nose present Face and sinus: Normal facial exam Eyes: Appearance normal, both eyes and all related structures Neck: Normal visual inspection and Yes full ROM Respiratory: Normal respiratory effort and able to speak in complete sentences. Lungs were actually fairly clear to auscultation bilaterally Cardiovascular: Regular rate and rhythm. Normal S1 and S2 GI: Normal to inspection. Soft to palpation and nontender Skin: No rashes or lesions noted. Feet were intact, slightly dry Neuro: Patient oriented x3 Extremities: Some edema bilaterally at lower extremities, trace to +1. Normal to inspection Results - Labs: Hemoglobin A1c 8.2%, trace micro albuminuria. - Imaging and Tests: Scheduled CT urogra m for further evaluation of potential urology issues. Plan - Initiate SGLT2 inhibitor therapy with Farxiga for management of Type 2 Diabetes Mellitus, as recommended by nephrology. - Discontinue Ozempic due to side effect s of severe constipation. - Conduct urine culture, cytology, and C T urogram to further evaluate microscopic hematuria and history of renal calculi. - Referral to endocrinology for comprehe nsive diabetes management and evaluation. - Continue current specialist care with nephrology and cardiology. - Schedule a colonoscopy for gastrointes tinal screening. Patient was informed and verbally consented to the use of an ambient scribe for clinic note documentation during this visit. Discussion Notes I discussed with the patient the plan to start Farxiga as a new SGLT2 inhibitor therapy. This change is in light of her previous intolerance to Jardiance and the discontinuation of Ozempic due to severe constipation. We talked about the n eed for regular monitoring of her renal function and diabetes management under nephrology and cardiology care. The necessity for a CT urogram was emphasized for further evaluation of her urological status, and she will be referred to endocrinology for additional diabetes management. We discussed the importance of her upcoming colonoscopy and the significance of continuing low-dose CAT scans due to her smoking history. Patient Instructions - Start Farxiga as prescribed. - Undergo urine culture and CT urogram a s discussed. - Schedule and complete a colonoscopy. - Continue follow-up with nephrology and cardiology. - Maintain current regimen of low-dose C AT scans. - Notify the clinic of any significant c hanges in symptoms or new concerns. [facility] Medical History Stroke ASCVD (arteriosclerotic cardiovascular disease) CHF (congestive heart failure) PAD (peripheral artery disease) HTN (hypertension) Chronic renal insufficiency Diabetes Nicotine dependence, cigarettes, uncomplicated Tubular adenoma of colon Fibromyalgia Vertigo Osteoarthritis Surgical History History of colonoscopy History of cataract surgery Family History Mother Diabetes Stroke Father Lung cancer Social History Housing: House Patient Tobacco Use Status: Current everyday Tobacco user Tobacco use type: Cigarette Cigarette Packs Per Day: 1 Cigarettes Per Day: 20.0 Years Smoked: (onset 8yo, 1ppd x 55yrs, 50PYH) e-Cigarette/Vaping Use: Never Used Second Hand Smoke Exposure: No service: No Current occupational status: employed Current occupation: [employer] Current occupational exposures/hazards: No Cognitive needs: No Hearing needs: No Vision needs: No Questionnaire PHQ-9 Over the last 2 weeks, how often have you been bothered by any of the following problems? 1. Little interest or pleasure in doing things: not at all Source: Developed by Drs. Abdoulaye Wu, Tracey Santos, Tee Baker and colleagues, with an educational mamadou from [employer]. Thrive Questionnaire Date Thrive assessed: 09/22/24 I am a: Patient What is your living situation today?: I have a steady place to live Within the past 12 months, did the food you bought not last and you didn't have the money to get more?: Never true Within the past 12 months, did you worry whether your food would run out before you got money to buy more?: Never true Do you have trouble paying for medicines?: I choose not to answer this question Do you have trouble getting transportation to medical appointments?: No Do you have trouble paying your heating and electricity bill?: No Do you have trouble taking care of your child, family member or friend?: No Do you have trouble with day-to-day activities such as bathing, preparing meals, shopping, managing finances, etc.?: No Are you currently unemployed and looking for a job?: No Are you interested in more education?: No Please select the resources that you would like help with: None Currently or been in a relationship where the following occur: No concerns reported THRIVE Score: 0 AUDIT C Alcohol Use Questionnaire (AUDIT-C) 1. How often do you have a drink containing alcohol?: Never 3. How often do you have six or more drinks on one occasion?: Never Total Score: 0 Score Reviewed/Action Taken: Yes JENNA-7 AMB Questionnaire JENNA-7 Date JENNA - 7 assessed: 09/22/24 Feeling nervous, anxious, or on edge: 0 = Not at all Not being able to stop or control worryin = Not at all Worrying too much about different things: 0 = Not at all Trouble relaxin = Not at all Being so restless that it is hard to sit still: 0 = Not at all Becoming easily annoyed or irritable: 0 = Not at all Feeling afraid as if something awful might happen: 0 = Not at all Total JENNA-7 score (0-4 normal; 5-9 mild; 10-14 moderate; 15-21 severe): 0 Source: Developed by Drs. Abdoulaye Wu, Tracey Santos, Tee Baker and colleagues, with an educational mamadou from [employer]. JENNA-7 Assessment Billing JENNA-7 Assessment Tool: JENNA-7 Assessment 21284 Physical exam (Primary Care) Vital Signs: Last Vital Signs Pulse 83 09/22/24 08:55 BP 142/80 H 09/22/24 08:55 Pulse Ox 98 09/22/24 08:55 BMI result Body Mass Index 32.4 Tobacco/Smoking Status: Tobacco use Status Tobacco use date assessed 09/22/24 09/22/24 08:57 Patient Tobacco Use Status Current everyday Tobacco 09/22/24 08:57 Tobacco use type Cigarette 09/22/24 08:57 e-Cigarette/Vaping Use Never Used 09/22/24 08:57 Thrive Assessment: Date of Thrive Assessment Date Thrive assessed 09/22/24 09/22/24 08:57 Currently or been in a relationship where the following occur: No concerns reported Coding Level of Care Code Est Pt Prev Care >65y(19264) Diagnoses Microscopic hematuria R31.29 Renal calculus N20.0 Diabetes E11.9 Additional Codes JENNA-7 Assessment Billing - JENNA-7 Assessment Tool: JENNA-7 Assessment 79198 ([id number]) Assessment & Plan Assessment & Plan (1) Microscopic hematuria: Code(s): R31.29 - Other microscopic hematuria Category: Medical (2) Renal calculus: Code(s): N20.0 - Calculus of kidney Category: Medical (3) Diabetes: Code(s): E11.9 - Type 2 diabetes mellitus without complications Category: Medical Plan . Orders: Orders Urine Cytology Today R31.29 - Other microscopic hematuria Urine Culture Today R31.29 - Other microscopic hematuria CT urogram Today R31.29 - Other microscopic hematuria UA and rflx microscopic Today R31.29 - Other microscopic hematuria Referrals Urology Referral N20.0 - Calculus of kidney, R31.29 - Other microscopic hematuria Endocrinology Referral E11.9 - Type 2 diabetes mellitus without complications Medications: New dapagliflozin propanediol (Farxiga) 5 mg PO DAILY 30 tabs 3RF Discontinued semaglutide (Ozempic) for 4 weeks Discontinued Reason: Patient Refused 0.5 mg (0.736 mL) subcut QWEEK 3 mL 2RF
[2024-09-22 09:50] VITALS: BP 138/80
== END 2024-09-22 10:07 | disposition home or self-care (01) ==
PROVIDERS: PCP Nurse Practitioner Family; Visit Provider Nurse Practitioner Family
DX: Z00.00 Encounter for general adult medical examination without abnormal findings (principal); E11.9 Type 2 diabetes mellitus without complications; R31.29 Other microscopic hematuria; N20.0 Calculus of kidney

== ENCOUNTER → 2024-09-22 08:45 | Outpatient (BNVA) | payer OTHER, SELFPAY | PROVIDERS: PCP Nurse Practitioner Family; Visit Provider Nurse Practitioner Family | DX: Z00.00 Encounter for general adult medical examination without abnormal findings (principal); R31.29 Other microscopic hematuria; N20.0 Calculus of kidney; E11.9 Type 2 diabetes mellitus without complications; Z79.4 Long term (current) use of insulin | CPT/HCPCS: 96127 ==

== ENCOUNTER 2024-10-03 | Outpatient (REF) | payer OTHER, SELFPAY ==
[2024-10-03 13:09] LABS: Urine Cytology See Pathology rpt
[2024-10-03 13:19] LABS: Appearance Urine Turbid; Color Urine Yellow; Glucose Urine UA >=1000 mg/dL (Negative); Leukocyte Esterase Urine Trace (Negative); Nitrite Urine Negative (Negative); PH 5.5 (5.0-9.0); Specific Gravity - Urine 1.025 (1.005-1.025); UMIC TRIGGER UA YES; Urine Blood Trace (Negative); Urine Ketones Trace mg/dL (Negative); Urine Protein 300 (3+) mg/dL (Neg-Trace)
[2024-10-03 13:30] LABS: Bacteria Urine 4+ (None Seen); RBC Urine 0-2 /HPF (0-2); WBC Urine 21-50 /HPF (0-5)
--- OUTSIDE RECORDS SUMMARY | 2024-10-03 15:03 | XMS_ITS | Clinical Summary ---
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 Role Phone Unavailable Primary Care Provider Unavailabl e Social History Tobacco Use Types Packs/Day Years Used Date Smoking Tobacco: Never Assessed Sex and Gender Information Value Date Recorded Sex Assigned at Not on file Gender Identity Not on file Sexual Orientation Not on file Plan of Treatment Health Maintenance Due Date Last Done Comments Breast Cancer Screening 1958 DTaP,Tdap,and Td Vaccines (1 - Tdap) 1977 Cervical Cancer Screening: P ap Smear 1979 Zoster Vaccines (1 of 2) 2008 Pneumococcal Vaccine: 65+ Ye ars (1 of 1 - PCV) 2023 COVID-19 Vaccine ( - 2023-2 5 season) 2024 Influenza Vaccine (#1) 2024 RSV Immunization Patients 60 + Years Old (1 - 1-dose 75+ series) 2033 HIB Vaccines Aged Out No longer eligi ble based on patient's age to complete this topic HPV Vaccines Aged Out No longer eligi ble based on patient's age to complete this topic Hepatitis A Vaccines Aged Out No long er eligible based on patient's age to complete this topic Hepatitis B Vaccines Aged Out No long er eligible based on patient's age to complete this topic IPV Vaccines Aged Out No longer eligi ble based on patient's age to complete this topic MMR Vaccines Aged Out No longer eligi ble based on patient's age to complete this topic Meningococcal ACWY Vaccine Aged Out N o longer eligible based on patient's age to complete this topic Pneumococcal Vaccine: Pediat rics (0 to 5 Years) and At-Risk Patients (6 to 64 Years) Aged Out No longer eligible b ased on patient's age to complete this topic RSV Immunization Patients Un vasile 20 months Aged Out No longer eligible b ased on patient's age to complete this topic Varicella Vaccines Aged Out No longer eligible based on patient's age to complete this topic
--- OUTSIDE RECORDS SUMMARY | 2024-10-03 19:08 | XMS_ITS | Clinical Summary ---
Author Organization [facility] ity Address [address] [place] [address] Care Team Providers Care Diabetic Educator Name Role Phone Unavailable Primary Care Provider [...]
== END 2024-10-03 00:01 | disposition home or self-care (01) ==
LOC: HO.HMGCLNP
PROVIDERS: PCP Nurse Practitioner Family; Visit Provider Nurse Practitioner Family
DX: R31.29 Other microscopic hematuria (principal)
CPT/HCPCS: 81001; 81003; 87086; 88112

== ENCOUNTER 2024-10-10 12:13 | Outpatient (AMB) | payer OTHER, SELFPAY ==
[2024-10-10 12:56] VITALS: BP 122/84; PULSE 78; TEMP 36.7; O2SAT 100; BMI 31.3
--- NOTE | 2024-10-10 12:56 | AM.OFFWIN_ITS ---
Intake Vital Signs 10/10/24 12:56 Height 5 ft 5 in Weight 188 lb BMI 31.3 BP 122/84 Blood Pressure Location Lt brachial Position Sitting Pulse 78 Pulse Source Pulse Oximeter Temp 98.1 F Temp Source Oral Pulse Oximetry (%) 100 Oxygen Delivery Method Room Air Intake Visit Reasons: EP-fever, cough, wheezing, ribs pain Intake Note: Patient here for cough, wheezing and crackling that has been present for a couple of days. Patient Tobacco Use Status: Current everyday Tobacco user Allergies meperidine [Demerol] Allergy (Intermediate, Verified 10/10/24 13:12) vomiting albuterol Allergy (Mild, Verified 10/10/24 13:12) Facial flushing erythromycin base [Erythromycin Base] Allergy (Mild, Verified 10/10/24 13:12) DIFFICULTY BREATHING metoclopramide [Reglan] Allergy (Unknown, Verified 10/10/24 13:12) Unknown empagliflozin [From Jardiance] Adverse Reaction (Intermediate, Verified 10/10/24 13:12) Headache Do you need a note to return to daycare/school/sports/work: No HPI HPI Comments History of Present Illness Details History - The patient is a 63-year-old female pr esenting with cough and trouble breathing. - She reports symptoms that started 3-4 days ago, consisting of a persistent cough, rib discomfort, shortness of breath, and fatigue. - There has been exposure to respiratory illness in the household with individuals with flu-like symptoms. - The patient has not experienced fever and reports no prior or current use of medications to alleviate the symptoms. - She notes occasional wheezing and head aches but is not suffering from ear pain or sinus pain. - She reports an allergy to albuterol, w hich results in facial flushing. Physical Exam General: Cooperative, healthy appearing, comfortable and no acute distress Orientation/consciousness: Patient oriented x3 Limitations: No limitations Head: Normal to inspection Ears: Hearing grossly normal bilaterally, external ears normal and TM's normal bilaterally Nose: Normal external nose present, Normal nares present and No nasal discharge present Face and sinus: Normal facial exam and Yes sinuses nontender Mouth: Normal oral and palatal mucosa present and moist mucous membranes Throat: Yes tonsils normal, Yes uvula midline. Posterior oropharynx erythema Eyes: Appearance normal, both eyes and all related structures Neck: Normal visual inspection Respiratory: slight vesicular sounds right side, no wheeze. Normal respiratory effort, able to speak in complete sentences, actively coughing, no respiratory distress, not tachypneic, no tripod positioning and no use of accessory muscles. Cardiovascular: Regular rate and rhythm. Normal S1 and S2 Skin: No rashes or lesions noted Neuro: Patient oriented x3 Extremities: Normal to inspection and Yes no clubbing, cyanosis or edema PFSH Medical History Stroke ASCVD (arteriosclerotic cardiovascular disease) CHF (congestive heart failure) PAD (peripheral artery disease) HTN (hypertension) Chronic renal insufficiency Diabetes Nicotine dependence, cigarettes, uncomplicated Tubular adenoma of colon Fibromyalgia Vertigo Osteoarthritis Surgical History History of colonoscopy History of cataract surgery Family History Mother Diabetes Stroke Father Lung cancer Social History Housing: House Patient Tobacco Use Status: Current everyday Tobacco user Tobacco use type: Cigarette Cigarette Packs Per Day: 1 Cigarettes Per Day: 20.0 Years Smoked: (onset 8yo, 1ppd x 55yrs, 50PYH) e-Cigarette/Vaping Use: Never Used Second Hand Smoke Exposure: No service: No Current occupational status: employed Current occupation: [employer] Current occupational exposures/hazards: No Cognitive needs: No Hearing needs: No Vision needs: No Review of Systems Const All systems reviewed & are unremarkable except as noted in HPI and below Physical Exam Vital Signs: Last Vital Signs Temp 98.1 F 10/10/24 12:56 Pulse 78 10/10/24 12:56 BP 122/84 10/10/24 12:56 Pulse Ox 100 10/10/24 12:56 Oxygen Delivery Method Room Air 10/10/24 12:56 BMI result Body Mass Index 31.3 Assessment & Plan Assessment & Plan (1) Lower respiratory infection (e.g., bronchitis, pneumonia, pneumonitis, pulmo nitis): Code(s): J22 - Unspecified acute lower respiratory infection Plan: The patient presented with symptoms consistent with an upper respiratory infection, potentially viral influenza, based on history and symptomatology. There is an absence of definitive fever, and she is beyond the timeline for v iable antiviral treatments, thus symptomatic management is prioritized. Benzonatate was prescribed to aid restful sleep by reducing nocturnal coughing. An order for a chest x-ray was placed to explore the possibility of pneumonia, given the respiratory symptoms and grumbling sounds during auscultation. If pneumonia is confirmed, antibiotic treatment would be considered. The plan includes timely communication regarding chest x-ray findings to adapt treatment as necessary. Patient was informed and verbally consented to the use of an ambient scribe for clinic note documentation during this visit Orders: Orders SARS-CoV2/FLU/RSV Today R09.89 - Other specified symptoms and signs involving the circulatory and respiratory systems XR chest 2V Today R05.9 - Cough, unspecified Medications: New benzonatate 200 mg PO TID PRN 14 caps 0RF cough Coding Level of Care Code Est Pt Level 4 (82627) Diagnoses Lower respiratory infection (e.g., bronchitis, pneumonia, pneumonitis, pulmonitis) J22
== END 2024-10-10 13:52 | disposition home or self-care (01) ==
PROVIDERS: PCP Nurse Practitioner Family; Visit Provider Physician Assistant
DX: J22 Unspecified acute lower respiratory infection (principal)

== ENCOUNTER 2024-10-10 12:13 | Outpatient (REF) | payer OTHER, SELFPAY ==
--- OUTSIDE RECORDS SUMMARY | 2024-10-10 14:43 | XMS_ITS | Clinical Summary ---
Author Organization [facility] ity Address [address] [place] [address] Care Team Providers Care Payroll Assistant Name Role Phone Unavailable Primary Care Provider [...]
[2024-10-10 18:23] LABS: Influenza A PCR POSITIVE (Negative); Influenza B PCR NEGATIVE (Negative); Resp Syncy Virus RNA Qual PCR NEGATIVE (Negative); SARS COV2 PCR INHOUSE NEGATIVE (Negative)
== END 2024-10-10 12:14 | disposition home or self-care (01) ==
LOC: HO.LAB 12:13
PROVIDERS: PCP Nurse Practitioner Family; Visit Provider Physician Assistant
DX: J22 Unspecified acute lower respiratory infection (principal); R09.89 Other specified symptoms and signs involving the circulatory and respiratory systems
CPT/HCPCS: 0241U

== ENCOUNTER 2024-10-10 13:33 | Outpatient (REF) | payer OTHER, SELFPAY ==
--- NOTE | ~2024-10-10 | XR_ITS ---
EXAMINATION: XR CHEST 2 VIEWS HISTORY: R05.9 - Cough, unspecified COMPARISON: Comparison is made with the prior examination dated 10/25/2019. FINDINGS: PA and lateral views of the chest are submitted. The lungs are expanded and clear. There is no pleural effusion, pneumothorax, or pulmonary vascular congestion. The heart is normal in size. The aorta is tortuous. There is degenerative disc disease of the spine. XR/XR chest 2V IMPRESSION: No acute cardiopulmonary abnormality. Electronically signed by: Abdoulaye Vicente MD 10/10/2024 01:54 PM [facility]
== END 2024-10-10 13:34 | disposition home or self-care (01) ==
LOC: HO.HMGCX 13:33
PROVIDERS: PCP Nurse Practitioner Family; Visit Provider Physician Assistant
DX: R05.9 Cough, unspecified (principal); R09.89 Other specified symptoms and signs involving the circulatory and respiratory systems
CPT/HCPCS: 71046

== ENCOUNTER → 2024-10-10 13:37 | Outpatient (BNV) | payer OTHER, SELFPAY | PROVIDERS: PCP Nurse Practitioner Family; Visit Provider Radiology Diagnostic Radiology | DX: R05.9 Cough, unspecified (principal) | CPT/HCPCS: 71046 ==

== ENCOUNTER 2025-01-26 09:59 | Outpatient (AMB) | payer OTHER, SELFPAY ==
--- NOTE | 2025-01-26 09:52 | HO.NEPHOV_ITS ---
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 She has diabetes over 30 years. She has history of atherosclerotic peripheral arterial disease. She had stents put in in her left lower extremity. She recently had LLE amputation She has no history of hypoglycemia . She has no history of cancers. She denies coronary artery disease, CVA, congestive heart failure, carotid stenosis, renal artery stenosis. She is not taking any SHAUNA inhibitor or an ARB. She does not have any hypoglycemias. She denies epistaxis, photosensitivity, hemoptysis, hematemesis, melena, nausea, vomiting, diarrhea, new bone or back pain, nephrolithiasis, history of hypercalcemia. She claims to be compliant with her medications. She remains employed and feels well. She has history of hepatitis C which has been treated. She has history of drug use when she was young. She denies taking excessive nonsteroidal anti-inflammatories. [facility] Medical History (Updated 01/26/25 @ 09:53 by Liset Michel MA) Left above-knee amputee Left leg DVT Stroke ASCVD (arteriosclerotic cardiovascular disease) CHF (congestive heart failure) PAD (peripheral artery disease) HTN (hypertension) Chronic renal insufficiency Diabetes Nicotine dependence, cigarettes, uncomplicated Tubular adenoma of colon Fibromyalgia Vertigo Osteoarthritis Surgical History History of colonoscopy History of cataract surgery Family History Mother Diabetes Stroke Father Lung cancer Social History Housing: House Patient Tobacco Use Status: Current everyday Tobacco user Tobacco use type: Cigarette Cigarette Packs Per Day: 1 Cigarettes Per Day: 20.0 Years Smoked: (onset 8yo, 1ppd x 55yrs, 50PYH) e-Cigarette/Vaping Use: Never Used Second Hand Smoke Exposure: No service: No Current occupational status: employed Current occupation: [employer] Current occupational exposures/hazards: No Cognitive needs: No Hearing needs: No Vision needs: No Review of Systems Const All systems reviewed & are unremarkable except as noted in HPI and below Physical Exam Vital Signs: BMI result Body Mass Index 30.0 Telehealth Telehealth Telehealth Platform: Telephone Location of provider rendering services: practice address Location of patient: address on file Patient Identification confirmed using: Name, : Yes Telehealth method: voice only Patient verbally consented to treatment: Yes Patient verbally consented to billing insurance company: Yes Patient informed of any privacy concerns related to visit: No Minutes spent on Phone/Video with Pt.: 10 Results Reviewed Nephrology Results: Urine Protein 300 (3+) mg/dL (Neg-Trace) H 10/03/24 Assessment & Plan Assessment & Plan (1) Renal artery stenosis: Code(s): I70.1 - Atherosclerosis of renal artery Category: Medical (2) Renal calculus: Code(s): N20.0 - Calculus of kidney Category: Medical (3) Hypertension: Code(s): I10 - Essential (primary) hypertension Category: Medical Qualifiers: Hypertension type: primary hypertension Qualified Code(s): I10 - Essential (primary) hypertension (4) CKD stage 3 due to type 2 diabetes mellitus: Code(s): E11.22 - Type 2 diabetes mellitus with diabetic chronic kidney disease; N18.30 - Chronic kidney disease, stage 3 unspecified Category: Medical Plan Caitlyn has diabetic nephropathy. She has diabetes over 30 years. She has atherosclerotic peripheral arterial disease. USS showed no hemodynamically significant right renal artery stenosis. Duplex findings are consistent with less than 60% left renal artery stenosis. There was a 2 mm nonobstructing left renal calculus is seen. No right renal calculus is seen. No hydronephrosis is noted bilaterally. I increased her lisinopril to 20 mg twice daily recently. Her renal functions are stable. She is on SGLT2 inhibitor. She needs to drop some weight and cut back sodium in the diet. She needs to maintain good hydration. She should avoid nonsteroidal anti-inflammatories. I did not make any other medication changes today. All questions answered. Follow-up appointment given Orders: Orders Electrolytes 6 Months E11.22 - Type 2 diabetes mellitus with diabetic chronic kidney disease, I10 - Essential (primary) hypertension, I70.1 - Atherosclerosis of renal artery, N18.30 - Chronic kidney disease, stage 3 unspecified, N20.0 - Calculus of kidney Blood Urea Nitrogen 6 Months E11. - Type 2 diabetes mellitus with diabetic chronic kidney disease, I10 - Essential (primary) hypertension, I70.1 - Atherosclerosis of renal artery, N18.30 - Chronic kidney disease, stage 3 unspecified, N20.0 - Calculus of kidney Creatinine 6 Months E11. - Type 2 diabetes mellitus with diabetic chronic kidney disease, I10 - Essential (primary) hypertension, I70.1 - Atherosclerosis of renal artery, N18.30 - Chronic kidney disease, stage 3 unspecified, N20.0 - Calculus of kidney Protein Creatinine Ratio, Ur 6 Months E11. - Type 2 diabetes mellitus with diabetic chronic kidney disease, I10 - Essential (primary) hypertension, I70.1 - Atherosclerosis of renal artery, N18.30 - Chronic kidney disease, stage 3 unspecified, N20.0 - Calculus of kidney Coding Level of Care Code Tele Est Pt Level 4 (51854) Diagnoses Renal artery stenosis I70.1 Renal calculus N20.0 Primary hypertension I10 Hypertension type: primary hypertension CKD stage 3 due to type 2 diabetes mellitus E11.; N18.30
--- OUTSIDE RECORDS SUMMARY | 2025-01-26 10:20 | XMS_ITS | Encounter Summary ---
Author Organization [facility] Address [address] [place] [address] Care Team Providers Care Environmental Emergencies Planner Name Role Phone Matthew Diego MD Primary Care Provider [phone] Encounter Details Date Type Department Care Team (Latest Contact Info) Description 11/25/2024 Lab Requisition [facility] - Main Lab [address] [place] [address] Matthew Diego MD [address] [place] [address] Type 2 diabetes mellitus without complications (CMS/HCC V24, CMS/HCC V28); Acquired absence of left leg above knee (CMS/HCC V24, CMS/HCC V28) Social History Tobacco Use Types Packs/Day Years Used Date Smoking Tobacco: Never Assessed Comments Unknown Sex and Gender Information Value Date Recorded Sex Assigned at Not on file Legal Sex Female 2:32 PM EST Gender Identity Not on file Sexual Orientation Not on file documented as of this encounter Plan of Treatment Not on file documented as of this encounter Procedures Procedure Name Priority Date/Time Associated Diagnosis Comments COMPLETE BLOOD COUNT Routine 11/25/2024 5:19 AM EDT Type 2 diabetes mellitus without complications Acquired absence of left leg above knee (CMS/HCC) BASIC METABOLIC PANEL Routine 11/25/2024 5:19 AM EDT Type 2 diabetes mellitus without complications Acquired absence of left leg above knee (CMS/HCC) documented in this encounter Results * (ABNORMAL) Basic metabolic panel (11/25/2024 5:19 AM EDT) Sodium 137 133 - 145 mmol/L LAB CHEMISTRY METHOD 11/25/2024 9:51 AM EDT [facility] Potassium 5.6(H) 3.5 - 5.5 mmol/L LAB CHEMISTRY METHOD 11/25/2024 9:51 AM [facility] Chloride 107 96 - 110 mmol/L LAB CHEMISTRY METHOD 11/25/2024 9:51 AM [facility] CO2 25 21 - 32 mmol/L LAB CHEMISTRY METHOD 11/25/2024 9:51 AM [facility] Anion Gap 5 3 - 11 LAB CHEMISTRY METHOD 11/25/2024 9:51 AM [facility] Glucose 99 70 - 100 mg/dL LAB CHEMISTRY METHOD 11/25/2024 9:51 AM [facility] BUN 19 5 - 25 mg/dL LAB CHEMISTRY METHOD 11/25/2024 9:51 AM [facility] Creatinine 0.74 0.50 - 1.10 mg/dL LAB CHEMISTRY METHOD 11/25/2024 9:51 AM [facility] LAB eGFR 89 >=60 mL/min/1. 73m2 LAB CHEMISTRY METHOD 11/25/2024 9:51 AM [facility] LAB Comment:Calculation based on the??Chronic Kidney Disease Epidemiology Collaboration (CKD-EPI) equation refit??without adjustment for race. BUN/Creatinine Ratio 25.7 LAB CHEMISTRY METHOD 11/25/2024 9:51 AM [facility] Calcium 8.1(L) 8.5 - 10.5 mg/dL LAB CHEMISTRY METHOD 11/25/2024 9:51 AM [facility] Blood Venous blood specimen / Unknown Venipuncture / Unknown 11/25/2024 5:19 AM EDT 11/25/2024 8:52 AM EDT us Matthew Diego MD LAB BLOOD ORDERABLES Final Resu lt [facility] [address] [place] [address], [place] [phone] * (ABNORMAL) Complete blood count (11/25/2024 5:19 AM EDT) [facility] WBC 6.9 4.8 - 10.8 K/mcL LAB HEMETOLOGY [facility] RBC 3.70(L) 3.80 - 4.80 M/mcL LAB HEMETOLOGY METHOD [facility] Hemoglobin 9.4(L) 11.5 - 16.0 g/dL LAB HEMETOLOGY METHOD 11/25/2024 9:30 AM [facility] Hematocrit 30.1(L) 35.0 - 47.0 % LAB HEMETOLOGY METHOD 11/25/2024 9:30 AM [facility] MCV 81.1 79.0 - 98.0 FL LAB HEMETOLOGY METHOD 11/25/2024 9:30 AM [facility] MCH 25.3(L) 27.0 - 32.0 pcg LAB HEMETOLOGY METHOD 11/25/2024 9:30 AM [facility] MCHC 31.2(L) 32.0 - 37.0 g/dL LAB HEMETOLOGY METHOD 11/25/2024 9:30 AM [facility] RDW 18.4(H) 11.0 - 15.0 % LAB HEMETOLOGY METHOD 11/25/2024 9:30 AM [facility] Platelets 489(H) 130 - 400 K/mcL LAB HEMETOLOGY METHOD 11/25/2024 9:30 AM [facility] MPV 10.2 7.0 - 11.0 FL LAB HEMETOLOGY METHOD 11/25/2024 9:30 AM [facility] NRBC 0.0 <1.0 % LAB HEMETOLOGY METHOD 11/25/2024 9:30 AM EDT [facility] NRBC Absolute 0.00 <0.10 K/mcL LAB HEMETOLOGY METHOD 11/25/2024 9:30 AM EDT [facility] Blood Venous blood specimen / Unknown Venipuncture / Unknown 11/25/2024 5:19 AM EDT 11/25/2024 8:52 AM EDT us Matthew Diego MD LAB BLOOD ORDERABLES Final Resu lt [facility]) [facility] [address] [place] [address], documented in this encounter Visit Diagnoses Diagnosis Type 2 diabetes mellitus without complications (CMS/HCC V24, CMS/HCC V28) Acquired absence of left leg above knee (CMS/HCC V24, CMS/HCC V28) documented in this encounter Care Teams Environmental Emergencies Planner Relationship Specialty Start Date End Date Matthew Diego MD [address] [place] [phone] PCP - General Hospitalist Medicine 11/25/24 documented as of this encounter
--- OUTSIDE RECORDS SUMMARY | 2025-01-26 10:20 | XMS_ITS | Encounter Summary ---
Author Organization [employer] Address [address] [place] [address] Care Team Providers Care Application Engineer Name Role Phone Matthew Diego MD Primary Care Provider [phone] Encounter Details Date Type Department Care Team (Late st Contact Info) Description 12/02/2024 Lab Requisition [facility] - Main Lab [address] [place] [address] Matthew Diego MD [address] [place] [address] Essential (primary) hypertension Social History Tobacco Use Types Packs/Day Years [...] Associated Diagnosis Comments COMPLETE BLOOD COUNT Routine 12/02/2024 5:21 AM EDT Essential (primary) hypertension BASIC METABOLIC PANEL Routine 12/02/2024 5:21 AM EDT Essential (primary) hypertension documented in this encounter Results * (ABNORMAL) Basic metabolic panel (12/02/2024 5:21 AM EDT) Sodium 140 133 - 145 mmol/L LAB CHEMISTRY METHOD 12/02/2024 10:53 AM EDT [facility] Potassium 3.9 3.5 - 5.5 mmol/L LAB CHEMISTRY METHOD 12/02/2024 10:53 AM EDT [facility] Chloride 111(H) 96 - 110 mmol/L LAB CHEMISTRY METHOD 12/02/2024 10:53 AM [facility] CO2 24 21 - 32 mmol/L LAB CHEMISTRY METHOD 12/02/2024 10:53 AM [facility] Anion Gap 5 3 - 11 LAB CHEMISTRY METHOD 12/02/2024 10:53 AM [facility] Glucose 160(H) 70 - 100 mg/dL LAB CHEMISTRY METHOD 12/02/2024 10:53 AM [facility] BUN 11 5 - 25 mg/dL LAB CHEMISTRY METHOD 12/02/2024 10:53 AM [facility] Creatinine 0.60 0.50 - 1.10 mg/dL LAB CHEMISTRY METHOD 12/02/2024 10:53 AM [facility] eGFR 99 >=60 mL/min/1. 73m2 LAB CHEMISTRY METHOD 12/02/2024 10:53 AM [facility] LAB Comment:Calculation based on the??Chronic Kidney Disease Epidemiology Collaboration (CKD-EPI) equation refit??without adjustment for race. BUN/Creatinine Ratio 18.3 LAB CHEMISTRY METHOD 12/02/2024 10:53 AM [facility] Calcium 7.9(L) 8.5 - 10.5 mg/dL LAB CHEMISTRY METHOD 12/02/2024 10:53 AM [facility] Blood Venous blood specimen / Unknown Venipuncture / Unknown 12/02/2024 5:21 AM EDT 12/02/2024 9:37 AM EDT us Matthew Diego MD LAB BLOOD ORDERABLES Final Resu lt [facility] [address] [place] [address], * (ABNORMAL) Complete blood count (12/02/2024 5:21 AM EDT) WBC 6.8 4.8 - 10.8 K/[facility] LAB HEMETOLOGY METHOD 12/02/2024 10:32 AM [facility] RBC 3.70(L) 3.80 - 4.80 M/mcL LAB HEMETOLOGY METHOD 12/02/2024 10:32 AM [facility] Hemoglobin 8.8(L) 11.5 - 16.0 g/dL LAB HEMETOLOGY METHOD 12/02/2024 10:32 AM [facility] Hematocrit 28.6(L) 35.0 - 47.0 % LAB HEMETOLOGY METHOD 12/02/2024 10:32 AM [facility] MCV 78.4(L) 79.0 - 98.0 FL LAB HEMETOLOGY METHOD 12/02/2024 10:32 AM [facility] MCH 24.1(L) 27.0 - 32.0 pcg LAB HEMETOLOGY METHOD 12/02/2024 10:32 AM [facility] MCHC 30.8(L) 32.0 - 37.0 g/dL LAB HEMETOLOGY METHOD 12/02/2024 10:32 AM [facility] RDW 18.6(H) 11.0 - 15.0 % LAB HEMETOLOGY METHOD 12/02/2024 10:32 AM [facility] Platelets 401(H) 130 - 400 K/mcL LAB HEMETOLOGY METHOD 12/02/2024 10:32 AM [facility] MPV 10.2 7.0 - 11.0 FL LAB HEMETOLOGY METHOD 12/02/2024 10:32 AM [facility] NRBC 0.0 <1.0 % LAB HEMETOLOGY METHOD 12/02/2024 10:32 AM [facility] NRBC Absolute 0.00 <0.10 K/mcL LAB HEMETOLOGY METHOD 12/02/2024 10:32 AM EDT [facility] Blood Venous blood specimen / Unknown Venipuncture / Unknown 12/02/2024 5:21 AM EDT 12/02/2024 9:37 AM EDT us Matthew Diego MD LAB BLOOD ORDERABLES Final Resu lt [facility] [address] [place] [address], documented in this encounter Visit Diagnoses Diagnosis Essential (primary) hypertension Unspecified essential hypertension documented in this encounter Care Teams Application Engineer Relationship Specialty Start Date End Date Matthew Diego MD [address] [place] [id number] PCP - General Hospitalist Medicine 11/25/24 documented as of this encounter
--- OUTSIDE RECORDS SUMMARY | 2025-01-26 10:20 | XMS_ITS | Encounter Summary ---
Author Organization [employer] Address [address] [place] [address] Care Team Providers Care Quality Review Trainer Name Role Phone Matthew Diego MD Primary Care Provider [phone] Encounter Details Date Type Department Care Team (Latest Contact Info) Description 12/09/2024 Lab Requisition [facility] - Main Lab [address] [place] [address] Matthew Diego MD [address] [place] [phone] Acute posthemorrhagic anemia; Type 2 diabetes mellitus without complications (CMS/HCC V24, CMS/HCC V28) Social History Tobacco [...] Associated Diagnosis Comments COMPLETE BLOOD COUNT Routine 12/09/2024 5:32 AM EDT Acute posthemorrhagic anemia Type 2 diabetes mellitus without complications BASIC METABOLIC PANEL Routine 12/09/2024 5:32 AM EDT Acute posthemorrhagic anemia Type 2 diabetes mellitus without complications documented in this encounter Results * (ABNORMAL) Basic metabolic panel (12/09/2024 5:32 AM EDT) Sodium 143 133 - 145 mmol/L LAB CHEMISTRY METHOD 12/09/2024 10:29 AM EDT [facility] Potassium 4.1 3.5 - 5.5 mmol/L LAB CHEMISTRY METHOD 12/09/2024 10:29 AM [facility] LAB Chloride 112(H) 96 - 110 mmol/L LAB CHEMISTRY METHOD 12/09/2024 10:29 AM [facility] LAB CO2 25 21 - 32 mmol/L LAB CHEMISTRY METHOD 12/09/2024 10:29 AM [facility] LAB Anion Gap 6 3 - 11 LAB CHEMISTRY METHOD 12/09/2024 10:29 AM [facility] LAB Glucose 116(H) 70 - 100 mg/dL LAB CHEMISTRY METHOD 12/09/2024 10:29 AM [facility] BUN 16 5 - 25 mg/dL LAB CHEMISTRY METHOD 12/09/2024 10:29 AM [facility] LAB Creatinine 0.66 0.50 - 1.10 mg/dL LAB CHEMISTRY METHOD 12/09/2024 10:29 AM [facility] LAB eGFR 97 >=60 mL/min/1. 73m2 LAB CHEMISTRY METHOD 12/09/2024 10:29 AM [facility] LAB Comment:Calculation based on the??Chronic Kidney Disease Epidemiology Collaboration (CKD-EPI) equation refit??without adjustment for race. BUN/Creatinine Ratio 24.2 LAB CHEMISTRY METHOD 12/09/2024 10:29 AM [facility] LAB Calcium 9.1 8.5 - 10.5 mg/dL LAB CHEMISTRY METHOD 12/09/2024 10:29 AM [facility] LAB Blood Venous blood specimen / Unknown Venipuncture / Unknown 12/09/2024 5:32 AM EDT 12/09/2024 9:07 AM EDT us Matthew Diego MD LAB BLOOD ORDERABLES Final Resu lt [facility] LAB [address] [place] [address], * (ABNORMAL) Complete blood count (12/09/2024 5:32 AM EDT) [facility] WBC 8.3 4.8 - 10.8 K/mcL LAB HEMETOLOGY METHOD 12/09/2024 9:58 AM [facility] LAB RBC 4.10 3.80 - 4.80 M/mcL LAB HEMETOLOGY METHOD 12/09/2024 9:58 AM [facility] LAB Hemoglobin 10.1(L) 11.5 - 16.0 g/dL LAB HEMETOLOGY METHOD 12/09/2024 9:58 AM [facility] LAB Hematocrit 32.8(L) 35.0 - 47.0 % LAB HEMETOLOGY METHOD 12/09/2024 9:58 AM [facility] LAB MCV 79.4 79.0 - 98.0 FL LAB HEMETOLOGY METHOD 12/09/2024 9:58 AM [facility] LAB MCH 24.5(L) 27.0 - 32.0 pcg LAB HEMETOLOGY METHOD 12/09/2024 9:58 AM [facility] LAB MCHC 30.8(L) 32.0 - 37.0 g/dL LAB HEMETOLOGY METHOD 12/09/2024 9:58 AM [facility] LAB RDW 17.6(H) 11.0 - 15.0 % LAB HEMETOLOGY METHOD 12/09/2024 9:58 AM [facility] LAB Platelets 350 130 - 400 K/mcL LAB HEMETOLOGY METHOD 12/09/2024 9:58 AM [facility] LAB MPV 10.4 7.0 - 11.0 FL LAB HEMETOLOGY METHOD 12/09/2024 9:58 AM [facility] LAB NRBC 0.0 <1.0 % LAB HEMETOLOGY METHOD 12/09/2024 9:58 AM [facility] LAB NRBC Absolute 0.00 <0.10 K/[facility] LAB HEMETOLOGY METHOD 12/09/2024 9:58 AM EDT [facility] LAB Blood Venous blood specimen / Unknown Venipuncture / Unknown 12/09/2024 5:32 AM EDT 12/09/2024 9:07 AM EDT us Matthew Diego MD LAB BLOOD ORDERABLES Final Resu lt [facility] LAB [address] [place] [address], [place] [phone] documented in this encounter Visit Diagnoses Diagnosis Acute posthemorrhagic anemia Type 2 diabetes mellitus without complications (CMS/HCC V24, CMS/HCC V28) documented in this encounter Care Teams Quality Review Trainer Relationship Specialty Start Date End Date Matthew Diego MD [address] [place] [phone] PCP - General Hospitalist Medicine 11/25/24 documented as of this encounter
--- OUTSIDE RECORDS SUMMARY | 2025-01-26 10:20 | XMS_ITS | Clinical Summary ---
Author Organization [address] [facility] Address [address] [place] [address] Phone Care Team Providers Care Furrier Designer Name Role Phone Matthew Diego MD Primary Care Provider [phone] Encounters Date Type Department Care Team Description 12/21/2024 Lab Requisition [facility] Lab [address] [place] [address] Matthew Diego MD Acute posthemorrhagic anemia; Acute kidney failure, unspecified (CMS/[facility] V24) 12/09/2024 Lab Requisition [facility] Lab [address] [place] [address] Matthew Diego MD Acute posthemorrhagic anemia; Type 2 diabetes mellitus without complications (CMS/HCC V24, CMS/HCC V28) 12/02/2024 Lab Requisition [facility] Lab [address] [place] [address] Matthew Diego MD Essential (primary) hypertension 11/30/2024 Lab Requisition [facility] Lab [address] [place] [address] Matthew Diego MD Acute posthemorrhagic anemia; Type 2 diabetes mellitus without complications (CMS/HCC V24, CMS/HCC V28) 11/28/2024 Lab Requisition [facility] Lab [address] [place] [address] Matthew Diego MD Type 2 diabetes mellitus without complications (CMS/HCC V24, CMS/HCC V28) 11/25/2024 Lab Requisition [facility] Lab [address] [place] [phone] Matthew Diego MD Type 2 diabetes mellitus without complications ([facility] V24, [facility] V28); Acquired absence of left leg above knee ([facility] V24, [facility] V28) from Last 3 Months Social History Tobacco Use Types Packs/Day Years Used Date Smoking Tobacco: Never Assessed Comments Unknown Sex and Gender Information Value Date Recorded Sex Assigned at Not on file Legal Sex Female 2:32 PM EST Gender Identity Not on file Sexual Orientation Not on file Plan of Treatment Health Maintenance Due Date Last Done Comments Breast Cancer Screening 1958 Diabetes: Annual Foot Exam 1968 Diabetes: Annual Retina Eye Exam 1968 DTaP,Tdap,and Td Vaccines (1 - Tdap) 1977 Zoster Vaccines (1 of 2) 2008 Pneumococcal Vaccine: 50+ Years (2 of 2 - PCV) 07/27/2017 07/27/2016 RSV Immunization Adult Patients (1 - Risk 60-74 years 1-dose series) 2018 COVID-19 Vaccine ( - season) 2024 Cholesterol Screening (Lipid Panel) 11/25/2024 Colorectal Cancer Screening: Colonoscopy 11/25/2024 Depression Screening 11/25/2024 Diabetes: Annual Urine Albumin-Creatinine Ratio (uACR) 11/25/2024 Falls Risk Assessment 11/25/2024 Hepatitis C Screening 11/25/2024 Osteoporosis Screening (Bone Density Screening) 11/25/2024 Social Influencers of Health Screening 11/25/2024 Influenza Vaccine (Season Ended) 2025 11/22/2021, 07/27/2016 Diabetes: Blood Sugar Control Test (HGBA1C) 05/31/2025 11/28/2024 Diabetes: Annual GFR (Glomerular Filtration Rate) 12/21/2025 12/21/2024, 12/09/2024, 12/02/2024, Additional history exists Hypertension/CHF/CAD Annual BMP Blood Test 12/21/2025 12/21/2024, 12/09/2024, 12/02/2024, Additional history exists HIB Vaccines Aged Out No longer eligi [...] patient's age to complete this topic Meningococcal B Vaccine Aged Out No l onger eligible based on patient's age to complete this topic RSV Immunization Patients Under 20 months Aged Out No longer eligible based on patient's age to complete this topic Varicella Vaccines Aged Out No longer eligible based on patient's age to complete this topic Procedures Procedure Name Priority Date/Time Associated Diagnosis Comments BASIC METABOLIC PANEL Routine 12/21/2024 5:23 AM EDT Acute posthemorrhagic anemia Acute kidney failure, unspecified (CMS/[facility] V24) COMPLETE BLOOD COUNT Routine 12/21/2024 5:23 AM EDT Acute posthemorrhagic anemia Acute kidney failure, unspecified (CMS/HCC V24) BASIC METABOLIC PANEL Routine 12/09/2024 5:32 AM EDT Acute posthemorrhagic anemia Type 2 diabetes mellitus without complications COMPLETE BLOOD COUNT Routine 12/09/2024 5:32 AM EDT Acute posthemorrhagic anemia Type 2 diabetes mellitus without complications BASIC METABOLIC PANEL Routine 12/02/2024 5:21 AM EDT Essential (primary) hypertension COMPLETE BLOOD COUNT Routine 12/02/2024 5:21 AM EDT Essential (primary) hypertension BASIC METABOLIC PANEL Routine 11/30/2024 4:47 AM EDT Acute posthemorrhagic anemia Type 2 diabetes mellitus without complications COMPLETE BLOOD COUNT Routine 11/30/2024 4:47 AM EDT Acute posthemorrhagic anemia Type 2 diabetes mellitus without complications HEMOGLOBIN A1C Routine 11/28/2024 5:08 AM EDT Type 2 diabetes mellitus without complications BASIC METABOLIC PANEL Routine 11/25/2024 5:19 AM EDT Type 2 diabetes mellitus without complications Acquired absence of left leg above knee (CMS/HCC) COMPLETE BLOOD COUNT Routine 11/25/2024 5:19 AM EDT Type 2 diabetes mellitus without complications Acquired absence of left leg above knee (CMS/HCC) from Last 3 Months Results * (ABNORMAL) Complete blood count (12/21/2024 5:23 AM EDT) Only the most recent of5 resultswithin the time period is included. WBC 8.6 4.8 - 10.8 K/mcL LAB HEMETOLOGY METHOD 12/21/2024 9:08 AM [facility] LAB RBC 4.00 3.80 - 4.80 M/mcL LAB HEMETOLOGY METHOD 12/21/2024 9:08 AM [facility] LAB Hemoglobin 9.6(L) 11.5 - 16.0 g/dL LAB HEMETOLOGY METHOD 12/21/2024 9:08 AM [facility] LAB Hematocrit 31.4(L) 35.0 - 47.0 % LAB HEMETOLOGY METHOD 12/21/2024 9:08 AM [facility] LAB MCV 78.3(L) 79.0 - 98.0 FL LAB HEMETOLOGY METHOD 12/21/2024 9:08 AM [facility] LAB MCH 23.9(L) 27.0 - 32.0 pcg LAB HEMETOLOGY METHOD 12/21/2024 9:08 AM [facility] LAB MCHC 30.6(L) 32.0 - 37.0 g/dL LAB HEMETOLOGY METHOD 12/21/2024 9:08 AM [facility] LAB RDW 16.2(H) 11.0 - 15.0 % LAB HEMETOLOGY METHOD 12/21/2024 9:08 AM EDT [facility] Platelets 232 130 - 400 K/mcL LAB [facility] 12/21/2024 9:08 AM EDT [facility] MPV 10.8 7.0 - 11.0 FL LAB HEMETOLOGY METHOD 12/21/2024 9:08 AM EDT [facility] NRBC 0.0 <1.0 % LAB HEMETOLOGY METHOD 12/21/2024 9:08 AM EDT [facility] NRBC Absolute 0.00 <0.10 K/mcL LAB [facility] 12/21/2024 9:08 AM [facility] LAB Blood Venous blood specimen / Unknown Venipuncture / Unknown 12/21/2024 5:23 AM EDT 12/21/2024 8:44 AM EDT us Matthew Diego MD LAB BLOOD ORDERABLES Final Resu lt [facility] LAB [address] [place] [address], * (ABNORMAL) Basic metabolic panel (12/21/2024 5:23 AM EDT) Only the most recent of5 resultswithin the time period is included. Sodium 142 133 - 145 mmol/L LAB CHEMISTRY METHOD 12/21/2024 9:46 AM T [facility] Potassium 4.1 3.5 - 5.5 mmol/L LAB CHEMISTRY METHOD 12/21/2024 9:46 AM EDT [facility] Chloride 111(H) 96 - 110 mmol/L LAB CHEMISTRY METHOD 12/21/2024 9:46 AM [facility] CO2 23 21 - 32 mmol/L LAB CHEMISTRY METHOD 12/21/2024 9:46 AM EDT [facility] Anion Gap 8 3 - 11 LAB CHEMISTRY METHOD 12/21/2024 9:46 AM EDT [facility] Glucose 189(H) 70 - 100 mg/dL LAB CHEMISTRY METHOD 12/21/2024 9:46 AM [facility] BUN 23 5 - 25 mg/dL LAB CHEMISTRY METHOD 12/21/2024 9:46 AM EDT [facility] Creatinine 0.89 0.50 - 1.10 mg/dL LAB CHEMISTRY METHOD 12/21/2024 9:46 AM EDT [facility] LAB eGFR 72 >=60 mL/min/1. 73m2 LAB CHEMISTRY METHOD 12/21/2024 9:46 AM T [facility] LAB Comment:Calculation based on the??Chronic Kidney Disease Epidemiology Collaboration (CKD-EPI) equation refit??without adjustment for race. BUN/Creatinine Ratio 25.8 LAB CHEMISTRY METHOD 12/21/2024 9:46 AM EDT [facility] Calcium 8.8 8.5 - 10.5 mg/dL LAB CHEMISTRY METHOD 12/21/2024 9:46 AM [facility] LAB Blood Venous blood specimen / Unknown Venipuncture / Unknown 12/21/2024 5:23 AM EDT 12/21/2024 8:44 AM EDT us Matthew Diego MD LAB BLOOD ORDERABLES Final Resu lt [facility] [address] [place] [address], * (ABNORMAL) Hemoglobin A1c (11/28/2024 5:08 AM EDT) Hemoglobin A1C 7.3(H) <6.5 % LAB CHEMISTRY METHOD 11/28/2024 1:09 PM EDT [facility] Mean Bld Glu Estim. 163 mg/dL LAB CHEMISTRY METHOD 11/28/2024 1:09 PM EDT [facility] Blood Venous blood specimen / Unknown Venipuncture / Unknown 11/28/2024 5:08 AM EDT 11/28/2024 10:20 AM EDT Matthew Diego MD LAB BLOOD ORDERABLES Final Resu lt [facility] ([facility]) [facility] [address] [place] [address], from Last 3 Months Insurance MEDICARE [facility] [place] [id number] Care Teams Furrier Designer Relationship Specialty Start Date End Date Matthew Diego MD [address] [place] [phone] PCP - General Hospitalist Medicine 11/25/24
--- OUTSIDE RECORDS SUMMARY | 2025-01-26 10:20 | XMS_ITS | Encounter Summary ---
Author Organization [email or web address] Address [address] [place] [address] Care Team Providers Care Automotive Consultant Name Role Phone Matthew Diego MD Primary Care Provider [phone] Encounter Details Date Type Department Care Team (Latest Contact Info) Description 11/30/2024 Lab Requisition [facility] - Main Lab [address] [place] [address] Matthew Diego MD [address] [place] [phone] Acute posthemorrhagic anemia; Type 2 diabetes mellitus [...] Associated Diagnosis Comments COMPLETE BLOOD COUNT Routine 11/30/2024 4:47 AM EDT Acute posthemorrhagic anemia Type 2 diabetes mellitus without complications BASIC METABOLIC PANEL Routine 11/30/2024 4:47 AM EDT Acute posthemorrhagic anemia Type 2 diabetes mellitus without complications documented in this encounter Results * (ABNORMAL) Basic metabolic panel (11/30/2024 4:47 AM EDT) Sodium 139 133 - 145 mmol/L LAB CHEMISTRY METHOD 11/30/2024 9:25 AM EDT [facility] Potassium 4.9 3.5 - 5.5 mmol/L LAB CHEMISTRY METHOD 11/30/2024 9:25 AM EDT [facility] Chloride 110 96 - 110 mmol/L LAB CHEMISTRY METHOD 11/30/2024 9:25 AM [facility] LAB CO2 25 21 - 32 mmol/L LAB CHEMISTRY METHOD 11/30/2024 9:25 AM [facility] LAB Anion Gap 4 3 - 11 LAB CHEMISTRY METHOD 11/30/2024 9:25 AM [facility] LAB Glucose 138(H) 70 - 100 mg/dL LAB CHEMISTRY METHOD 11/30/2024 9:25 AM [facility] BUN 19 5 - 25 mg/dL LAB CHEMISTRY METHOD 11/30/2024 9:25 AM [facility] LAB Creatinine 0.80 0.50 - 1.10 mg/dL LAB CHEMISTRY METHOD 11/30/2024 9:25 AM [facility] LAB eGFR 81 >=60 mL/min/1. 73m2 LAB CHEMISTRY METHOD 11/30/2024 9:25 AM [facility] LAB Comment:Calculation based on the??Chronic Kidney Disease Epidemiology Collaboration (CKD-EPI) equation refit??without adjustment for race. BUN/Creatinine Ratio 23.8 LAB CHEMISTRY METHOD 11/30/2024 9:25 AM [facility] LAB Calcium 7.7(L) 8.5 - 10.5 mg/dL LAB CHEMISTRY METHOD 11/30/2024 9:25 AM [facility] LAB Blood Venous blood specimen / Unknown Venipuncture / Unknown 11/30/2024 4:47 AM EDT 11/30/2024 8:35 AM EDT us Matthew Diego MD LAB BLOOD ORDERABLES Final Resu lt [facility] LAB [address] [place] [address], * (ABNORMAL) Complete blood count (11/30/2024 4:47 AM EDT) [facility] WBC 5.8 4.8 - 10.8 K/mcL LAB HEMETOLOGY METHOD 11/30/2024 8:57 AM [facility] LAB RBC 3.30(L) 3.80 - 4.80 M/mcL LAB [facility]OLOG[facility] Hemoglobin 8.0(L) 11.5 - 16.0 g/dL LAB HEMETOLOGY METHOD 11/30/2024 8:57 AM [facility] LAB Hematocrit 26.5(L) 35.0 - 47.0 % LAB HEMETOLOGY METHOD 11/30/2024 8:57 AM [facility] LAB MCV 81.3 79.0 - 98.0 FL LAB HEMETOLOGY METHOD 11/30/2024 8:57 AM [facility] LAB MCH 24.5(L) 27.0 - 32.0 pcg LAB HEMETOLOGY METHOD 11/30/2024 8:57 AM [facility] LAB MCHC 30.2(L) 32.0 - 37.0 g/dL LAB HEMETOLOGY METHOD 11/30/2024 8:57 AM [facility] LAB RDW 18.6(H) 11.0 - 15.0 % LAB HEMETOLOGY METHOD 11/30/2024 8:57 AM [facility] LAB Platelets 400 130 - 400 K/mcL LAB HEMETOLOGY METHOD 11/30/2024 8:57 AM [facility] LAB MPV 10.3 7.0 - 11.0 FL LAB HEMETOLOGY METHOD 11/30/2024 8:57 AM [facility] LAB NRBC 0.0 <1.0 % LAB HEMETOLOGY METHOD 11/30/2024 8:57 AM [facility] LAB NRBC Absolute 0.00 <0.10 K/[facility] LAB HEMETOLOGY METHOD 11/30/2024 8:57 AM EDT [facility] LAB Blood Venous blood specimen / Unknown Venipuncture / Unknown 11/30/2024 4:47 AM EDT 11/30/2024 8:35 AM EDT us Matthew Diego MD LAB BLOOD ORDERABLES Final Resu lt [facility] [address] [place] [address], documented in this encounter Visit Diagnoses Diagnosis Acute posthemorrhagic anemia Type 2 diabetes mellitus without complications (CMS/HCC V24, CMS/HCC V28) documented in this encounter Care Teams Automotive Consultant Relationship Specialty Start Date End Date Matthew Diego MD [address] [place] [phone] PCP - General Hospitalist Medicine 11/25/24 documented as of this encounter
--- OUTSIDE RECORDS SUMMARY | 2025-01-26 10:20 | XMS_ITS | Encounter Summary ---
Author Organization [email or web address] Address [address] [place] [address] Care Team Providers Care Bellows Tester Name Role Phone Matthew Diego MD Primary Care Provider [phone] Encounter Details Date Type Department Care Team (Latest Contact Info) Description 12/21/2024 Lab Requisition [facility] - Main Lab [address] [place] [address] Matthew Diego MD [address] [place] [phone] Acute posthemorrhagic anemia; Acute kidney failure, unspecified (CMS/HCC V24) Social History Tobacco Use Types Packs/Day Years [...] Associated Diagnosis Comments COMPLETE BLOOD COUNT Routine 12/21/2024 5:23 AM EDT Acute posthemorrhagic anemia Acute kidney failure, unspecified (CMS/HCC V24) BASIC METABOLIC PANEL Routine 12/21/2024 5:23 AM EDT Acute posthemorrhagic anemia Acute kidney failure, unspecified (CMS/HCC V24) documented in this encounter Results * (ABNORMAL) Basic metabolic panel (12/21/2024 5:23 AM EDT) Sodium 142 133 - 145 mmol/L LAB CHEMISTRY METHOD 12/21/2024 9:46 AM EDT [facility] Potassium 4.1 3.5 - 5.5 mmol/L LAB CHEMISTRY METHOD 12/21/2024 9:46 AM [facility] Chloride 111(H) 96 - 110 mmol/L LAB CHEMISTRY METHOD 12/21/2024 9:46 AM [facility] CO2 23 21 - 32 mmol/L LAB CHEMISTRY METHOD 12/21/2024 9:46 AM [facility] Anion Gap 8 3 - 11 LAB CHEMISTRY METHOD 12/21/2024 9:46 AM [facility] LAB Glucose 189(H) 70 - 100 mg/dL LAB CHEMISTRY METHOD 12/21/2024 9:46 AM [facility] BUN 23 5 - 25 mg/dL LAB CHEMISTRY METHOD 12/21/2024 9:46 AM [facility] Creatinine 0.89 0.50 - 1.10 mg/dL LAB CHEMISTRY METHOD 12/21/2024 9:46 AM [facility] LAB eGFR 72 >=60 mL/min/1. 73m2 LAB CHEMISTRY METHOD 12/21/2024 9:46 AM [facility] LAB Comment:Calculation based on the??Chronic Kidney Disease Epidemiology Collaboration (CKD-EPI) equation refit??without adjustment for race. BUN/Creatinine Ratio 25.8 LAB CHEMISTRY METHOD 12/21/2024 9:46 AM [facility] Calcium 8.8 8.5 - 10.5 mg/dL LAB CHEMISTRY METHOD 12/21/2024 9:46 AM [facility] LAB Blood Venous blood specimen / Unknown Venipuncture / Unknown 12/21/2024 5:23 AM EDT 12/21/2024 8:44 AM EDT us Matthew Diego MD LAB BLOOD ORDERABLES Final Resu lt [facility] [address] [place] [address], * (ABNORMAL) Complete blood count (12/21/2024 5:23 AM EDT) [facility] WBC 8.6 4.8 - 10.8 K/mcL LAB HEMETOLOGY METHOD 12/21/2024 9:08 AM [facility] RBC 4.00 3.80 - 4.80 M/mcL LAB HEMETOLOGY METHOD 12/21/2024 9:08 AM [facility] Hemoglobin 9.6(L) 11.5 - 16.0 g/dL LAB HEMETOLOGY METHOD 12/21/2024 9:08 AM [facility] LAB Hematocrit 31.4(L) 35.0 - 47.0 % LAB HEMETOLOGY METHOD 12/21/2024 9:08 AM [facility] LAB MCV 78.3(L) 79.0 - 98.0 FL LAB HEMETOLOGY METHOD 12/21/2024 9:08 AM [facility] MCH 23.9(L) 27.0 - 32.0 pcg LAB HEMETOLOGY METHOD 12/21/2024 9:08 AM [facility] MCHC 30.6(L) 32.0 - 37.0 g/dL LAB HEMETOLOGY METHOD 12/21/2024 9:08 AM [facility] RDW 16.2(H) 11.0 - 15.0 % LAB HEMETOLOGY METHOD 12/21/2024 9:08 AM [facility] Platelets 232 130 - 400 K/mcL LAB HEMETOLOGY METHOD 12/21/2024 9:08 AM [facility] MPV 10.8 7.0 - 11.0 FL LAB HEMETOLOGY METHOD 12/21/2024 9:08 AM [facility] NRBC 0.0 <1.0 % LAB HEMETOLOGY METHOD 12/21/2024 9:08 AM [facility] NRBC Absolute 0.00 <0.10 K/mcL LAB HEMETOLOGY METHOD 12/21/2024 9:08 AM EDT [facility] LAB Blood Venous blood specimen / Unknown Venipuncture / Unknown 12/21/2024 5:23 AM EDT 12/21/2024 8:44 AM EDT us Matthew Diego MD LAB BLOOD ORDERABLES Final Resu lt [facility] [address] [place] [address], [place] [phone] documented in this encounter Visit Diagnoses Diagnosis Acute posthemorrhagic anemia Acute kidney failure, unspecified (CMS/HCC V24) Acute kidney failure, unspecified documented in this encounter Care Teams Bellows Tester Relationship Specialty Start Date End Date Matthew Diego MD [address] [place] [phone] PCP - General Hospitalist Medicine 11/25/24 documented as of this encounter
--- OUTSIDE RECORDS SUMMARY | 2025-01-26 10:20 | XMS_ITS | Encounter Summary ---
Author Organization [facility] Address [address] [place] [address] Care Team Providers Care Aesthetician Name Role Phone Matthew Diego MD Primary Care Provider [phone] Encounter Details Date Type Department Care Team (Latest Contact Info) Description 11/28/2024 Lab Requisition [facility] - Main Lab [address] [facility] [place] [address] Matthew Diego MD [address] [place] [id number] Type 2 diabetes mellitus without complications (CMS/[facility] V24, CMS/[facility] V28) Social History Tobacco Use Types Packs/Day [...] Procedure Name Priority Date/Time Associated Diagnosis Comments HEMOGLOBIN A1C Routine 11/28/2024 5:08 AM EDT Type 2 diabetes mellitus without complications documented in this encounter Results * (ABNORMAL) Hemoglobin A1c (11/28/2024 5:08 AM EDT) Hemoglobin A1C 7.3(H) <6.5 % LAB CHEMISTRY METHOD 11/28/2024 1:09 PM EDT [facility] Mean Bld Glu Estim. 163 mg/dL LAB CHEMISTRY METHOD 11/28/2024 1:09 PM EDT [facility] Blood Venous blood specimen / Unknown Venipuncture / Unknown 11/28/2024 5:08 AM EDT 11/28/2024 10:20 AM EDT us Matthew Diego MD LAB BLOOD ORDERABLES Final Resu lt [facility] [address] [place] [address], documented in this encounter Visit Diagnoses Diagnosis Type 2 diabetes mellitus without complications (CMS/HCC V24, CMS/HCC V28) documented in this encounter Care Teams Aesthetician Relationship Specialty Start Date End Date Matthew Diego MD [address] [place] [phone] PCP - General Hospitalist Medicine 11/25/24 documented as of this encounter
== END 2025-01-26 11:10 | disposition home or self-care (01) ==
LOC: HO.HKAS 10:00
PROVIDERS: PCP Nurse Practitioner Family; Visit Provider Internal Medicine Nephrology
DX: I70.1 Atherosclerosis of renal artery (principal); N20.0 Calculus of kidney; I10 Essential (primary) hypertension; E11.22 Type 2 diabetes mellitus with diabetic chronic kidney disease; N18.30 Chronic kidney disease, stage 3 unspecified
CPT/HCPCS: 99214

== ENCOUNTER → 2025-02-01 07:24 | Outpatient (BNVA) | payer OTHER, SELFPAY | PROVIDERS: PCP Nurse Practitioner Family; Visit Provider Nurse Practitioner Family ==

== ENCOUNTER 2025-02-01 16:01 | Outpatient (AMB) | payer OTHER, SELFPAY ==
--- NOTE | 2025-02-01 16:01 | A.OFFPC_ITS ---
Intake Visit Reasons: HDF-call pt Tray Drier Required: No Accompanied by: Self / Same As Patient Allergies meperidine [Demerol] Allergy (Intermediate, Verified 01/26/25 09:58) vomiting albuterol Allergy (Mild, Verified 01/26/25 09:58) Facial flushing erythromycin base [Erythromycin Base] Allergy (Mild, Verified 01/26/25 09:58) DIFFICULTY BREATHING metoclopramide [Reglan] Allergy (Unknown, Verified 01/26/25 09:58) Unknown empagliflozin [From Jardiance] Adverse Reaction (Intermediate, Verified 01/26/25 09:58) Headache Tobacco use date assessed: 09/22/24 Fall risk assessment: No Falls in past year Last assessed Fall Risk: 02/01/25 Dental Screening Dental Screen Date: 09/22/24 HPI HDF-call pt HPI Details History of Present Illness The patient is a 64-year-old female presenting with management of mobility issues and chronic right knee pain post-amputation. She underwent an above-knee amputation on November 17 due to vascular complications in her left lower extremity, accompanied by necrotic muscle tissue. Post-surgery, she was transfused with blood and eventually admitted to a rehabilitation facility. During the hospital period, she was treated with intravenous antibiotics, including Vancomycin, Zosyn, and Flagyl, following positive blood culture results. Additionally, she experienced urinary retention, which was addressed with a Ross catheter. A CT scan of her abdomen and pelvis was negative. Following her rehabilitation discharge, the patient has been unable to bear weight on her right lower extremity due to chronic knee pain. Previous interventions, such as a cortisone injection and a steroid taper, have provided minimal relief. She is currently dependent on a wheelchair and lacks a ramp for her home, posing significant mobility challenges. Efforts are being made to secure a ramp through [employer], although the application is incomplete. She engages in weekly HOME physical and occupational therapy sessions but continues to struggle with prolonged weight-bearing on her right leg. The patient denies experiencing fevers, chills, nausea, or vomiting and reports satisfactory healing of the amputation site with no infection signs. She is able to stand on her right lower extrem, and pivot (toileting/bed), but only for a short time Review of Systems - Musculoskeletal: Reports chronic right knee pain with limited weight-bearing ability. Denies improvement with cortisone injection and steroid taper. - Infectious Disease: Reports healing of amputation site with no signs of infection. Denies fevers, chills. - Gastrointestinal: Denies nausea, vomit ing. - Urinary: Reports past urinary retentio n, now managed. - General: Reports overall doing well wi th no new symptoms. Plan To manage her chronic right knee pain and mobility issues, we plan to coordinate an x-ray evaluation with the orthopedic team. Due to transportation challenges, I will work with nursing staff and case management to assist with logistics. Continuation of physical and occupational therapy remains crucial for her rehabilitation. Completing the RECESS. application for a ramp is a priority to improve home accessibility. Lab work will be completed when she can leave the house. Discussion Notes During our discussion, I emphasized the importance of completing the [employer] application for ramp installation to improve her home accessibility and mobility. We discussed the ongoing challenges of transportation for medical appointments and agreed to explore options with nursing staff and case management. The patient was informed of the necessity of coordinating an x-ray evaluation with the orthopedic team to address her chronic right knee pain. We noted the absence of infection symptoms, and agreed on the importance of continuing physical and occupational therapy. I reassured her that lab work would be performed when she can safely leave her home, along with a stat referral to ortho and a XR. Patient Instructions - Complete the [employer] application fo r ramp installation. - Continue physical and occupational the rapy sessions. - Monitor for any signs of infection and report them immediately. - Arrange for lab work when able to leav e the house. - Coordinate with nursing staff for assi stance with transportation needs for an ortho consult. [facility] Medical History (Updated 02/01/25 @ 17:26 by Matthew Salazar, [facility]) Left above-knee amputee Left leg DVT Stroke ASCVD (arteriosclerotic cardiovascular disease) CHF (congestive heart failure) PAD (peripheral artery disease) HTN (hypertension) Chronic renal insufficiency Diabetes Nicotine dependence, cigarettes, uncomplicated Tubular adenoma of colon Fibromyalgia Vertigo Osteoarthritis Surgical History (Updated 02/01/25 @ 16:06 by Gavin Avina CMA) S/P amputation of limb History of colonoscopy History of cataract surgery Family History Mother Diabetes Stroke Father Lung cancer Social History Housing: House Patient Tobacco Use Status: Current everyday Tobacco user Tobacco use type: Cigarette Cigarette Packs Per Day: 1 Cigarettes Per Day: 20.0 Years Smoked: (onset 8yo, 1ppd x 55yrs, 50PYH) Packs Per Year: 0 Packs per year/per ci.00 e-Cigarette/Vaping Use: Never Used Second Hand Smoke Exposure: No service: No Current occupational status: employed Current occupation: [employer] Current occupational exposures/hazards: No Cognitive needs: No Hearing needs: No Vision needs: No Questionnaire Thrive Questionnaire Date Thrive assessed: 09/22/24 JENNA-7 AMB Questionnaire JENNA-7 Date JENNA - 7 assessed: 09/22/24 Source: Developed by Drs. Abdoulaye Wu, Tracey Santos, Tee Baker and colleagues, with an educational mamadou from [employer]. Physical exam (Primary Care) Tobacco/Smoking Status: Tobacco use Status Tobacco use date assessed 09/22/24 02/01/25 16:06 Patient Tobacco Use Status Current everyday Tobacco 02/01/25 16:06 Tobacco use type Cigarette 02/01/25 16:06 e-Cigarette/Vaping Use Never Used 02/01/25 16:06 Thrive Assessment: Date of Thrive Assessment Date Thrive assessed 09/22/24 02/01/25 16:06 Telehealth Telehealth Telehealth Platform: Telephone Location of provider rendering services: practice address Location of patient: address on file Patient Identification confirmed using: Name, : Yes Telehealth method: voice only Patient verbally consented to treatment: Yes Patient verbally consented to billing insurance company: Yes Patient informed of any privacy concerns related to visit: Yes Minutes spent on Phone/Video with Pt.: 15 Coding Level of Care Code Tele Est Pt Level 3 (33231) Diagnoses Right knee pain M25.561 Wheelchair dependent Z99.3 Unilateral AKA S78.119A Assessment & Plan Assessment & Plan (1) Right knee pain: Code(s): M25.561 - Pain in right knee Category: Medical (2) Wheelchair dependent: Code(s): Z99.3 - Dependence on wheelchair Category: Medical (3) Unilateral AKA: Comment: left Code(s): S78.119A - Complete traumatic amputation at level between unspecified hip and knee, initial encounter Category: Medical Plan . Orders: Orders Complete Blood Count Auto Diff Today M25.561 - Pain in right knee TSH reflex Free T4 Today M25.561 - Pain in right knee Microalbumin, Random (w Creat) Today M25.561 - Pain in right knee Hemoglobin A1c Today M25.561 - Pain in right knee XR knee RT 2V Today M25.561 - Pain in right knee Comprehensive [place]. Panel Fast Today M25.561 - Pain in right knee UA CC w/rflx Micro + Cult Today M25.561 - Pain in right knee Lipid Panel Today M25.561 - Pain in right knee
--- OUTSIDE RECORDS SUMMARY | 2025-02-01 16:15 | XMS_ITS | Encounter Summary ---
Author Organization [facility] Address [address] [place] [address] Care Team Providers Care Propagation Worker Name Role Phone Matthew Dieog MD Primary Care Provider [phone] Encounter Details Date Type Department Care Team (Latest Contact Info) Description 11/25/2024 Lab Requisition [facility] - Main Lab [address] [place] [address] Matthew Diego MD [address] [place] [id number] Type 2 diabetes mellitus without complications (CMS/HCC [...] LAB CHEMISTRY METHOD 11/25/2024 9:51 AM EDT [facility] Potassium 5.6(H) 3.5 - 5.5 mmol/L LAB CHEMISTRY METHOD 11/25/2024 9:51 AM [facility] Chloride 107 96 - 110 mmol/L LAB CHEMISTRY METHOD 11/25/2024 9:51 AM [facility] CO2 25 21 - 32 mmol/L LAB CHEMISTRY METHOD 11/25/2024 9:51 AM [facility] Anion Gap 5 3 - 11 LAB CHEMISTRY METHOD 11/25/2024 9:51 AM [facility] Glucose 99 70 - 100 mg/dL LAB CHEMISTRY METHOD 11/25/2024 9:51 AM [facility] BUN 19 5 - 25 mg/dL LAB CHEMISTRY METHOD 11/25/2024 9:51 AM [facility] Creatinine 0.74 0.50 - 1.10 mg/dL LAB CHEMISTRY METHOD 11/25/2024 9:51 AM [facility] eGFR 89 >=60 mL/min/1. 73m2 LAB CHEMISTRY METHOD 11/25/2024 9:51 AM [facility] Comment:Calculation based on the??Chronic Kidney Disease Epidemiology Collaboration (CKD-EPI) equation refit??without adjustment for race. BUN/Creatinine Ratio 25.7 LAB CHEMISTRY METHOD 11/25/2024 9:51 AM [facility] Calcium 8.1(L) 8.5 - 10.5 mg/dL LAB CHEMISTRY METHOD 11/25/2024 9:51 AM [facility] Blood Venous blood specimen / Unknown Venipuncture / Unknown 11/25/2024 5:19 AM EDT 11/25/2024 8:52 AM EDT us Matthew Diego MD LAB BLOOD ORDERABLES Final Resu lt [facility] [address] [place] [address], [place] [phone] * (ABNORMAL) Complete blood count (11/25/2024 5:19 AM EDT) [facility] WBC 6.9 4.8 - 10.8 K/mcL LAB [facility]EMETOLOG[facility] RBC 3.70(L) 3.80 - 4.80 M/mcL LAB HEMETOLOGY METHOD [facility] Hemoglobin 9.4(L) 11.5 - 16.0 g/dL LAB HEMETOLOGY METHOD 11/25/2024 9:30 AM [facility] Hematocrit 30.1(L) 35.0 - 47.0 % LAB HEMETOLOGY METHOD 11/25/2024 9:30 AM [facility] MCV 81.1 79.0 - 98.0 FL LAB HEMETOLOGY METHOD 11/25/2024 9:30 AM [facility] MCH 25.3(L) 27.0 - 32.0 pcg LAB HEMETOLOGY METHOD 11/25/2024 9:30 AM [facility] MCHC 31.2(L) 32.0 - 37.0 g/dL LAB HEMETOLOGY METHOD 11/25/2024 9:30 AM [facility] RDW 18.4(H) 11.0 - 15.0 % LAB HEMETOLOGY METHOD 11/25/2024 9:30 AM [facility] Platelets 489(H) 130 - 400 K/mcL LAB HEMETOLOGY METHOD 11/25/2024 9:30 AM [facility] MPV 10.2 7.0 - 11.0 FL LAB HEMETOLOGY METHOD 11/25/2024 9:30 AM [facility] NRBC 0.0 <1.0 % LAB HEMETOLOGY METHOD 11/25/2024 9:30 AM EDT [facility] NRBC Absolute 0.00 <0.10 K/mcL LAB HEMETOLOGY METHOD 11/25/2024 9:30 AM EDT [facility] Blood Venous blood specimen / Unknown Venipuncture / Unknown 11/25/2024 5:19 AM EDT 11/25/2024 8:52 AM EDT us Matthew Diego MD LAB BLOOD ORDERABLES Final Resu lt [facility] [address] [place] [address], documented in this encounter Visit Diagnoses Diagnosis Type 2 diabetes mellitus without complications (CMS/HCC V24, CMS/HCC V28) Acquired absence of left leg above knee (CMS/HCC V24, CMS/HCC V28) documented in this encounter Care Teams Propagation Worker Relationship Specialty Start Date End Date Matthew Diego MD [address] [place] [address] PCP - General Hospitalist Medicine 11/25/24 documented as of this encounter
== END 2025-02-01 17:30 ==
LOC: HO.HMCC 16:01
PROVIDERS: PCP Nurse Practitioner Family; Visit Provider Nurse Practitioner Family
DX: M25.561 Pain in right knee (principal); Z99.3 Dependence on wheelchair; S78.119A Complete traumatic amputation at level between unspecified hip and knee, initial encounter

== ENCOUNTER 2025-04-25 06:40 | Outpatient (AMB) | payer MEDICARE, SELFPAY ==
--- OUTSIDE RECORDS SUMMARY | 2025-04-25 06:43 | XMS_ITS | Encounter Summary ---
Author Organization [facility] Address [address] [place] [address] Care Team Providers Care Turbine Subassembler Name Role Phone Matthew Diego MD Primary Care Provider [phone] Encounter Details Date Type Department Care Team (Latest Contact Info) Description 11/25/2024 Lab Requisition [facility] - Main Lab [address] [place] [address] Matthew Diego MD [address] [place] [address] Type 2 diabetes mellitus without complications (CMS/HCC [...] LAB CHEMISTRY METHOD 11/25/2024 9:51 AM EDT [facility] Potassium 5.6(H) 3.5 - 5.5 mmol/L LAB CHEMISTRY METHOD 11/25/2024 9:51 AM [facility] Chloride 107 96 - 110 mmol/L LAB CHEMISTRY METHOD 11/25/2024 9:51 AM [facility] CO2 25 21 - 32 mmol/L LAB CHEMISTRY METHOD 11/25/2024 9:51 AM [facility] Anion Gap 5 3 - 11 LAB CHEMISTRY METHOD 11/25/2024 9:51 AM [facility] Glucose 99 70 - 100 mg/dL LAB CHEMISTRY METHOD 11/25/2024 9:51 AM [facility] BUN 19 5 - 25 mg/dL LAB CHEMISTRY METHOD 11/25/2024 9:51 AM [facility] Creatinine 0.74 0.50 - 1.10 mg/dL LAB CHEMISTRY METHOD 11/25/2024 9:51 AM [facility] eGFR 89 >=60 mL/min/1. 73m2 LAB CHEMISTRY METHOD 11/25/2024 9:51 AM [facility] LAB Comment:Calculation based on the Chronic Kidney Disease Epidemiology Collaboration (CKD-EPI) equation refit without adjustment for race. BUN/Creatinine Ratio 25.7 LAB CHEMISTRY METHOD 11/25/2024 9:51 AM [facility] Calcium 8.1(L) 8.5 - 10.5 mg/dL LAB CHEMISTRY METHOD 11/25/2024 9:51 AM [facility] Blood Venous blood specimen / Unknown Venipuncture / Unknown 11/25/2024 5:19 AM EDT 11/25/2024 8:52 AM EDT us Matthew Diego MD LAB BLOOD ORDERABLES Final Resu lt [facility] [address] [place] [address], [place] [phone] * (ABNORMAL) Complete blood count (11/25/2024 5:19 AM EDT) [facility] WBC 6.9 4.8 - 10.8 K/mcL LAB HEMETOLOGY METHOD [facility] RBC 3.70(L) 3.80 - 4.80 M/mcL LAB HEMETOLOGY METHOD 11/[facility]24 [facility] Hemoglobin 9.4(L) 11.5 - 16.0 g/dL LAB HEMETOLOGY METHOD 11/25/2024 9:30 AM [facility] Hematocrit 30.1(L) 35.0 - 47.0 % LAB HEMETOLOGY METHOD 11/25/2024 9:30 AM [facility] MCV 81.1 79.0 - 98.0 FL LAB HEMETOLOGY METHOD 11/25/2024 9:30 AM [facility] MCH 25.3(L) 27.0 - 32.0 pcg LAB HEMETOLOGY METHOD 11/25/2024 9:30 AM [facility] MCHC 31.2(L) 32.0 - 37.0 g/dL LAB HEMETOLOGY METHOD 11/25/2024 9:30 AM [facility] RDW 18.4(H) 11.0 - 15.0 % LAB HEMETOLOGY METHOD 11/25/2024 9:30 AM [facility] Platelets 489(H) 130 - 400 K/mcL LAB HEMETOLOGY METHOD 11/25/2024 9:30 AM [facility] MPV 10.2 7.0 - 11.0 FL LAB HEMETOLOGY METHOD 11/25/2024 9:30 AM [facility] NRBC 0.0 <1.0 % LAB HEMETOLOGY METHOD 11/25/2024 9:30 AM EDT [facility] NRBC Absolute 0.00 <0.10 K/mcL LAB HEMETOLOGY METHOD 11/25/2024 9:30 AM EDT [facility] Blood Venous blood specimen / Unknown Venipuncture / Unknown 11/25/2024 5:19 AM EDT 11/25/2024 8:52 AM EDT us Matthew Diego MD LAB BLOOD ORDERABLES Final Resu lt [facility] [address] [place] [address], documented in this encounter Visit Diagnoses Diagnosis Type 2 diabetes mellitus without complications (CMS/HCC V24, CMS/HCC V28) Acquired absence of left leg above knee (CMS/HCC V24, CMS/HCC V28) documented in this encounter Care Teams Turbine Subassembler Relationship Specialty Start Date End Date Matthew Diego MD [address] [place] [id number] PCP - General Hospitalist Medicine 11/25/24 documented as of this encounter
--- NOTE | 2025-04-25 08:01 | MHC.PC.OV ---
Intake Visit Reasons: diabetes, sensor use/monitoring Allergies meperidine (Demerol) Allergy (Intermediate, Verified 01/26/25 09:58) vomiting albuterol Allergy (Mild, Verified 01/26/25 09:58) Facial flushing erythromycin base (Erythromycin Base) Allergy (Mild, Verified 01/26/25 09:58) DIFFICULTY BREATHING metoclopramide (Reglan) Allergy (Unknown, Verified 01/26/25 09:58) Unknown empagliflozin (From Jardiance) Adverse Reaction (Intermediate, Verified 01/26/25 09:58) Headache Medication List - Last Reconciled 04/25/25 by KAMAR Zarate-BC aspirin 1 tab PO DAILY blood sugar diagnostic (FreeStyle Lite Strips) test blood sugar 3 times per day blood-glucose meter (FreeStyle Lite Meter kit) As directed cholecalciferol (vitamin D3) 125 mcg PO DAILY empagliflozin (Jardiance) 10 mg PO DAILY FreeStyle Sarah 2 Milton (flash glucose scanning reader) tid testing NS FreeStyle Sarah 2 Sensor (flash glucose sensor) tid testing NS lancets (FreeStyle Lancets) test 3 times per day Lantus Solostar U-100 Insulin (insulin glargine) 80 units (0.8 mL) subcut DAILY NS lisinopril 20 mg PO BID 90 days omega-3 acid ethyl esters 1 cap PO BID pen needle, diabetic (BD Ultra-Fine Rimma Pen Needle) daily use diabetes pregabalin (Lyrica) 75 mg PO BID 30 days rosuvastatin 40 mg PO DAILY 90 days Tobacco use date assessed: 09/22/24 Dental Screening Dental Screen Date: 09/22/24 HPI diabetes, sensor use/monitoring HPI Details History of Present Illness The patient is a 64-year-old female presenting with a follow-up visit for diabetes management. She is currently on insulin therapy, but her blood glucose levels fluctuate significantly, experiencing both hypoglycemic and hyperglycemic episodes. She is aware of the symptoms of hypoglycemia and how to manage them. The patient has a history of left lower extremity amputation and is in the process of obtaining a prosthesis. She reports feeling depressed, which is attributed to the amputation and the associated limitations in mobility. She also experiences significant knee pain in her right lower extremity, which is her dominant leg. This pain is due to osteoarthritis, previously confirmed by an x-ray in 2022, and prior gel injections have not provided relief. A new x-ray is planned to reassess the condition, and an orthopedic consultation is being arranged. The patient is working on getting a ramp installed at her home to facilitate mobility. She has been given a contact for therapy to address her depression, but has encountered difficulties in securing an appointment. Efforts are being made to connect her with a therapist through a nurse navigator. Review of Systems - Endocrine: Reports fluctuating blood glucose levels, both hypoglycemia and hyperglycemia. - Musculoskeletal: Reports right knee pain due to osteoarthritis. - Psychological: Reports feeling depressed, denies suicidal or homicidal ideation. denies any CP, increased sob. Plan A continuous glucose monitor CGM) will be prescribed to better manage the patient's diabetes and monitor her fluctuating blood glucose levels. The patient is advised to continue monitoring her symptoms of hypoglycemia and manage them as needed. For her right knee osteoarthritis, a new x-ray will be conducted to reassess the condition, and an orthopedic consultation will be arranged to explore further treatment options. The patient is encouraged to proceed with obtaining her prosthesis to improve mobility and is advised to continue working on getting a ramp installed at her home. Regarding her depression, efforts will be made to connect her with a therapist through a nurse navigator, given the current unavailability of therapists from the initial contact provided. Discussion Notes I discussed the importance of using a continuous glucose monitor to manage her diabetes effectively, given the fluctuations in her blood glucose levels. starting jardiance, though reported [place] previously. will start her on 5mg daily first. The farxiga worked well, i cant afford it . We also talked about the need for a new x-ray and orthopedic consultation for her right knee osteoarthritis to determine the best course of action. I emphasized the importance of obtaining her prosthesis and installing a ramp at her home to enhance her mobility. Regarding her depression, I assured her that we would work on connecting her with a therapist through our nurse navigator, as the initial contact did not have availability. Patient Instructions - Use the continuous glucose monitor as prescribed to track blood sugar levels. - Monitor for symptoms of low blood sugar and manage them as instructed. - Follow up with the orthopedic consultation for knee pain management. - Continue efforts to obtain a prosthesis and install a ramp at home. - Contact the nurse navigator for assistance in finding a therapist. [facility] Medical History (Updated 04/25/25 @ 08:03 by JUN Zarate) Left above-knee amputee Left leg DVT Stroke ASCVD (arteriosclerotic cardiovascular disease) CHF (congestive heart failure) PAD (peripheral artery disease) HTN (hypertension) Chronic renal insufficiency Diabetes Nicotine dependence, cigarettes, uncomplicated Tubular adenoma of colon Fibromyalgia Vertigo Osteoarthritis Surgical History S/P amputation of limb History of colonoscopy History of cataract surgery Family History Mother Diabetes Stroke Father Lung cancer Social History Household Members: Family Housing: House Are you a primary director of health care marketing to a significant other at home: No Do you presently have visiting nurse or other home services: No 75 years or older and lives alone: No Patient Tobacco Use Status: Current everyday Tobacco user Tobacco use type: Cigarette Cigarette Packs Per Day: 1 Cigarettes Per Day: 20.0 Years Smoked: (onset 8yo, 1ppd x 55yrs, 50PYH) e-Cigarette/Vaping Use: Never Used Second Hand Smoke Exposure: No service: No Current occupational status: retired and disabled Current occupation: Previous Job: [employer] Current occupational exposures/hazards: No Gender identity: Female Cognitive needs: No Hearing needs: No Vision needs: No Questionnaire Thrive Questionnaire Date Thrive assessed: 09/22/24 I am a: Patient What is your living situation today?: I have a steady place to live Within the past 12 months, did the food you bought not last and you didn't have the money to get more?: Never true Within the past 12 months, did you worry whether your food would run out before you got money to buy more?: Never true Do you have trouble paying for medicines?: I choose not to answer this question Do you have trouble getting transportation to medical appointments?: No Do you have trouble paying your heating and electricity bill?: No Do you have trouble taking care of your child, family member or friend?: No Do you have trouble with day-to-day activities such as bathing, preparing meals, shopping, managing finances, etc.?: No Are you currently unemployed and looking for a job?: No Are you interested in more education?: No Please select the resources that you would like help with: None Currently or been in a relationship where the following occur: No concerns reported THRIVE Score: 0 JENNA-7 AMB Questionnaire JENNA-7 Date JENNA - 7 assessed: 09/22/24 Source: Developed by Drs. Abdoulaye Wu, Tracey Santos, Tee Baker and colleagues, with an educational mamadou from [facility]. Physical exam (Primary Care) Tobacco/Smoking Status: Tobacco use Status Tobacco use date assessed 09/22/24 02/01/25 16:06 Patient Tobacco Use Status Current everyday Tobacco 04/19/25 15:48 Tobacco use type Cigarette 04/19/25 15:48 e-Cigarette/Vaping Use Never Used 04/19/25 15:48 Thrive Assessment: Date of Thrive Assessment Date Thrive assessed 09/22/24 04/20/25 15:12 Currently or been in a relationship where the following occur: No concerns reported Telehealth Telehealth Telehealth Platform: Telephone Location of provider rendering services: practice address Location of patient: address on file Patient Identification confirmed using: Name, : Yes Telehealth method: voice only Patient verbally consented to treatment: Yes Patient verbally consented to billing insurance company: Yes Patient informed of any privacy concerns related to visit: Yes Minutes spent on Phone/Video with Pt.: 15 Coding Level of Care Code Est Pt Level 3 (38251) Diagnoses Right knee pain M25.561 Unilateral AKA S78.119A Left above-knee amputee Z89.612 Depression F32.A Wheelchair dependent Z99.3 Uncontrolled diabetes mellitus with hyperglycemia E11.65 Assessment & Plan Assessment & Plan (1) Right knee pain: Code(s): M25.561 - Pain in right knee Category: Medical (2) Unilateral AKA: Comment: left Code(s): S78.119A - Complete traumatic amputation at level between unspecified hip and knee, initial encounter Category: Medical (3) Left above-knee amputee: Comment: 11/17/2024 Code(s): Z89.612 - Acquired absence of left leg above knee Category: Medical (4) Depression: Code(s): F32.A - Depression, unspecified Category: Medical (5) Wheelchair dependent: Code(s): Z99.3 - Dependence on wheelchair Category: Medical (6) Uncontrolled diabetes mellitus with hyperglycemia: Code(s): E11.65 - Type 2 diabetes mellitus with hyperglycemia Category: Medical Plan . Orders: Orders XR knee RT 2V Today M25.561 - Pain in right knee Referrals Orthopedics Referral M25.561 - Pain in right knee Medications: New empagliflozin (Jardiance) 10 mg PO DAILY 30 tabs 0RF
== END 2025-04-25 10:50 | disposition home or self-care (01) ==
LOC: HO.HMCC 06:41
PROVIDERS: PCP Nurse Practitioner Family; Visit Provider Nurse Practitioner Family
DX: M25.561 Pain in right knee (principal); S78.119A Complete traumatic amputation at level between unspecified hip and knee, initial encounter; Z89.612 Acquired absence of left leg above knee; E11.65 Type 2 diabetes mellitus with hyperglycemia; F32.A Depression, unspecified; Z99.3 Dependence on wheelchair

== ENCOUNTER → 2025-04-25 06:40 | Outpatient (BNVA) | payer MEDICARE, SELFPAY | PROVIDERS: PCP Nurse Practitioner Family; Visit Provider Nurse Practitioner Family | DX: M25.561 Pain in right knee (principal); F32.A Depression, unspecified; E11.65 Type 2 diabetes mellitus with hyperglycemia; Z89.612 Acquired absence of left leg above knee; Z99.3 Dependence on wheelchair | CPT/HCPCS: 99212 ==

== ENCOUNTER 2025-07-11 09:17 | Outpatient (AMB) | payer MEDICARE, SELFPAY ==
--- NOTE | 2025-07-11 09:24 | A.OFFVIS_ITS ---
Intake Visit Reasons: Re-establish nutrition care Allergies meperidine (Demerol) Allergy (Intermediate, Verified 01/26/25 09:58) vomiting albuterol Allergy (Mild, Verified 01/26/25 09:58) Facial flushing erythromycin base (Erythromycin Base) Allergy (Mild, Verified 01/26/25 09:58) DIFFICULTY BREATHING metoclopramide (Reglan) Allergy (Unknown, Verified 01/26/25 09:58) Unknown empagliflozin (From Jardiance) Adverse Reaction (Intermediate, Verified 01/26/25 09:58) Headache Nutrition Presentation Details: Met with patient in her home. This RD had worked with this patient roughly 3 years ago but pts status has changed in setting of progressive DM and a lower- leg amputation. Pt is currently using a shabana 2 sensor but does not scan regularly at all so large amounts of data are missing. She does not keep it near by or at bedside and often forgets. Reports she had a long, intense spell of depression over the summer and stopped taking care of herself but is now trying to get back on track. Has weekly therapy and a med doc. Does cover food issues in sessions. Reports she needs to re-enroll in her insurance come September. It seems a lot of her DM needs are not being covered by current Medicare Advantage plan thought Swetha so pt will call [facility] financial operations analyst office to discuss options better suited for her complete medical needs. Farxiga and Jardiance were over $400 so patient declined and is now back on Humalog. Med list needs to be updated. has a very irregular sleep schedule-could wake up any time between 5 am-2pm and goes to bed around 11 pm but doesnt always fall right asleep. Reason for consult: follow up DM maintenance Food allergies/aversions: No Physical activity assessment: Reviewed (not getting PT right now) Other problems/issues: Reports RLE edema and pain Diet Assmnt Details: Does not wear top dentures to eat Current diet assessment: Reviewed Dietary counseling: diabetic diet and Mediterranean Who buys your food: self and other (daughter) Who prepares/cooks your food: self and other Lifestyle Emotional Eating: Reports depression Family support: Yes Exercise: No BS Monitoring Details: 6 u Humalog 120-160 10 U > 160 Frequency of blood glucose monitoring: continuous monitoring Glucose monitoring timing: other (Time in Range 56%, daily average 176, no lows) Assessment Assessment details: It is very difficult to make nutrition adjustments because patients sleep schedule is so erratic and there are large chucks of data missing from her sensor. Need more information moving forward. Nutrition recommendation: RD nutrition education Focused findings Nutrition-focused findings: amputation(s) and edentulous Diagnosis Nutrition problem #1: inadequate energy intake As related to (etiology) #1: lack of nutrit education, decreased appetite, unsure how to apply info, diagnosis and physical inactivity As evidenced by (sign/symptom) #1: abnormal lab values, prior fail - chg behavior, knowledge deficit of diet and widely varied blood sugar Monitoring/Goals Nutrition problem monitoring: total energy intake, HgbA1c, level of knowledge/skill, total PRO intake, glucose, fasting and oral fluids Nutrition goal/outcome: list 3 diab diet goals, list 3 CHO foods and list 3 high fiber foods Outcome progress: verbalized understanding Learning/Education Readiness to learn: good Stages of change: action Educational materials provided: Yes (snack guide and hospital contact for ortho and financial office) Date of nutrition screenin07/10/25 Date of nutritional follow-up: 08/08/25 Follow up Follow-up frequency: monthly Time Outcome assessment time: 60 minutes [facility] Medical History (Updated 07/11/25 @ 09:[address]) Left above-knee amputee Left leg DVT Stroke ASCVD (arteriosclerotic cardiovascular disease) CHF (congestive heart failure) PAD (peripheral artery disease) HTN (hypertension) Chronic renal insufficiency Diabetes Nicotine dependence, cigarettes, uncomplicated Tubular adenoma of colon Fibromyalgia Vertigo Osteoarthritis Surgical History S/P amputation of limb History of colonoscopy History of cataract surgery Family History Mother Diabetes Stroke Father Lung cancer Social History Household Members: Family Housing: House Are you a primary care navigator to a significant other at home: No Do you presently have visiting nurse or other home services: No 75 years or older and lives alone: No Patient Tobacco Use Status: Current everyday Tobacco user Tobacco use type: Cigarette Cigarette Packs Per Day: 1 Cigarettes Per Day: 20.0 Years Smoked: (onset 8yo, 1ppd x 55yrs, 50PYH) e-Cigarette/Vaping Use: Never Used Second Hand Smoke Exposure: No service: No Current occupational status: retired and disabled Current occupation: Previous Job: [employer] Current occupational exposures/hazards: No Gender identity: Female Cognitive needs: No Hearing needs: No Vision needs: No Assessment & Plan Assessment & Plan (1) Uncontrolled diabetes mellitus with hyperglycemia: Code(s): E11.65 - Type 2 diabetes mellitus with hyperglycemia Category: Medical Qualifiers: Diabetes mellitus type: type 2 Qualified Code(s): E11.65 - Type 2 diabetes mellitus with hyperglycemia Plan: 1. make appointment to enroll in new insurance Plan 1. call hospital financial office and ortho office for appointments 2m begin understanding emotional eating 3. restart home exercises 4. scan sensor at least every 8 hours and keep reader at bedside 5. consider starting a food log to help RD better tailor a nutrition plan Coding Level of Care Code Nutr Indiv Intake (87929) Diagnoses Uncontrolled type 2 diabetes mellitus with hyperglycemia E11.65 Diabetes mellitus type: type 2
== END 2025-07-11 09:19 | disposition home or self-care (01) ==
LOC: HO.HMCCN 09:17
PROVIDERS: PCP Nurse Practitioner Family; Visit Provider Dietitian, Registered
DX: E11.65 Type 2 diabetes mellitus with hyperglycemia (principal)

== ENCOUNTER → 2025-07-11 09:17 | Outpatient (BNVA) | payer MEDICARE, SELFPAY | PROVIDERS: PCP Nurse Practitioner Family; Visit Provider Dietitian, Registered | DX: E11.65 Type 2 diabetes mellitus with hyperglycemia (principal) | CPT/HCPCS: 97802 ==